=== PATIENT | male | born 1950 | race Caucasian/White ===

== ENCOUNTER → 2024-05-04 | Outpatient (CLI) | payer OTHER, SELFPAY ==
[2024-05-04 08:59] LABS: Basophils # (Auto) 0.1 Thou/mm3 (0.0-0.2); Basophils % (Auto) 1 % (0-2.5); Eosinophils # (Auto) 0.2 Thou/mm3 (0.0-0.5); Eosinophils % (Auto) 2 % (0-10); Hematocrit 46.2 % (41.0-53.0); Hemoglobin 14.6 g/dL (13.5-16.0); Immature Granulocytes % (Auto) 0 % (0-0); Immature Granulocytes Auto 0.03 Thou/mm3 (0.00-0.00); Lymphocytes # (Auto) 2.4 Thou/mm3 (1.0-4.8); Lymphocytes % (Auto) 22 % (10-50); Mean Corpuscular HGB Conc 31.6 g/dl (31.0-37.0); Mean Corpuscular Hemoglobin 25.7 pg (25.0-35.0); Mean Corpuscular Volume 82 fL (80-100); Monocytes # (Auto) 0.3 Thou/mm3 (0.0-0.8); Monocytes % (Auto) 3 % (0-12); Neutrophils # (Auto) 7.8 Thou/mm3 (1.8-7.7); Neutrophils % (Auto) 72 % (37-80); Nucleated Red Blood Cell % 0 /100 WBC (0); Platelet Count 211 Thou/mm3 (140-440); RDW Standard Deviation 49.5 fL (35.1-43.9); Red Blood Count 5.67 Miln/mm3 (4.50-5.90); White Blood Count 10.8 Thou/mm3 (3.8-10.6)
[2024-05-04 09:44] LABS: Alanine Aminotransferase 13 U/L (10-49); Albumin, Serum 4.5 gm/dL (3.4-4.8); Albumin/Globulin Ratio 2.1 (1.2-2.2); Alkaline Phosphatase 82 U/L (46-116); Anion Gap 9 (7-16); Aspartate Amino Transferase 22 U/L (0-34); BUN/Creatinine Ratio 8 Ratio (12-20); Blood Urea Nitrogen 13 mg/dL (9-23); Calcium 9.7 mg/dL (8.3-10.6); Calcium (Corrected) 9.7 mg/dL (8.5-10.1); Carbon Dioxide 26.5 mMol/L (20.0-31.0); Cardiac Risk Estimate 3.7 RATIO (4.0-6.7); Chloride 108 mMol/L (98-107); Cholesterol 133 mg/dL (132-200); Creatinine (Component) 1.6 mg/dL (0.6-1.3); Globulin 2.1 gm/dL (2.3-3.5); Glucose 125 mg/dL (74-106); HDL Cholesterol 36 mg/dL (40-60); LDL Cholesterol,Calculated 68 mg/dL (0-130); Osmolality,Calculated 286 (275-295); Potassium 4.2 mMol/L (3.4-5.1); Sodium 143 mMol/L (136-145); Total Protein 6.6 gm/dL (5.7-8.2); Triglycerides 147 mg/dL (30-150); eGFR 45 See Note
[2024-05-04 09:53] LABS: Collection Type, Urine Clean Catch
[2024-05-04 10:32] LABS: Bacteria,Urine 1+; Bilirubin,Urine Negative (Negative); Blood,Urine 2+ (Negative); Color,Urine Yellow (Lt Yel-Yel); Glucose, Urine Negative (Negative); Hyaline Casts,Urine < 1 /hpf (0-1); Ketones,Urine Negative (Negative); Leukocyte Esterase,Urine Negative (Negative); Nitrite,Urine Negative (Negative); Protein,Urine 1+ (Neg - Trace); RBC,Urine 113 /hpf (0-3); Specific Gravity,Urine 1.024 (1.001-1.035); Squamous Epithelial Cell,Urine 1 /hpf (0-5); Urobilinogen,Urine Negative mg/dL (0.0-1.0); WBC,Urine 9 /hpf (0-5)
[2024-05-04 10:40] LABS: Creatinine MALB Rnd Ur 226 mg/dL (30-125); Microalbumin Creat Ratio 65 mg/gCrea (<30); Microalbumin, Random Urine 147 mg/L (0-300)
[2024-05-04 11:15] LABS: Sperm,Urine Present
[2024-05-04 11:16] LABS: Clarity,Urine Hazy (Clear/Hazy)
== END | disposition home or self-care (01) ==
LOC: COPL 07:49
PROVIDERS: PCP Internal Medicine; Referring Provider Internal Medicine; Visit Provider Internal Medicine
DX: I12.9 Hypertensive chronic kidney disease with stage 1 through stage 4 chronic kidney disease, or unspecified chronic kidney disease (principal); N18.30 Chronic kidney disease, stage 3 unspecified; E78.5 Hyperlipidemia, unspecified
CPT/HCPCS: 36415; 80053; 80061; 81001; 82043; 82570; 85025

== ENCOUNTER → 2024-09-07 | Outpatient (CLI) | payer OTHER, SELFPAY ==
[2024-09-07 09:49] LABS: Basophils # (Auto) 0.1 Thou/mm3 (0.0-0.2); Basophils % (Auto) 1 % (0-2.5); Eosinophils # (Auto) 0.3 Thou/mm3 (0.0-0.5); Eosinophils % (Auto) 3 % (0-10); Hematocrit 43.9 % (41.0-53.0); Hemoglobin 13.3 g/dL (13.5-16.0); Immature Granulocytes % (Auto) 0 % (0-0); Immature Granulocytes Auto 0.02 Thou/mm3 (0.00-0.00); Lymphocytes # (Auto) 2.5 Thou/mm3 (1.0-4.8); Lymphocytes % (Auto) 27 % (10-50); Mean Corpuscular HGB Conc 30.3 g/dl (31.0-37.0); Mean Corpuscular Hemoglobin 23.8 pg (25.0-35.0); Mean Corpuscular Volume 79 fL (80-100); Monocytes # (Auto) 0.3 Thou/mm3 (0.0-0.8); Monocytes % (Auto) 3 % (0-12); Neutrophils # (Auto) 6.1 Thou/mm3 (1.8-7.7); Neutrophils % (Auto) 66 % (37-80); Nucleated Red Blood Cell % 0 /100 WBC (0); Platelet Count 178 Thou/mm3 (140-440); Red Blood Count 5.58 Miln/mm3 (4.50-5.90); White Blood Count 9.4 Thou/mm3 (3.8-10.6)
[2024-09-07 10:17] LABS: Alanine Aminotransferase 13 U/L (10-49); Albumin, Serum 4.2 gm/dL (3.4-4.8); Albumin/Globulin Ratio 2.1 (1.2-2.2); Alkaline Phosphatase 82 U/L (46-116); Anion Gap 10 (7-16); Aspartate Amino Transferase 25 U/L (0-34); BUN/Creatinine Ratio 9 Ratio (12-20); Bilirubin,Total 1.1 mg/dL (0.3-1.2); Blood Urea Nitrogen 13 mg/dL (9-23); Calcium 9.2 mg/dL (8.3-10.6); Calcium (Corrected) 9.2 mg/dL (8.5-10.1); Carbon Dioxide 26.5 mMol/L (20.0-31.0); Cardiac Risk Estimate 2.5 RATIO (4.0-6.7); Chloride 110 mMol/L (98-107); Cholesterol 112 mg/dL (132-200); Creatinine (Component) 1.5 mg/dL (0.6-1.3); Glucose 104 mg/dL (74-106); HDL Cholesterol 44 mg/dL (40-60); LDL Cholesterol,Calculated 53 mg/dL (0-130); Osmolality,Calculated 290 (275-295); Sodium 146 mMol/L (136-145); Total Protein 6.2 gm/dL (5.7-8.2); Triglycerides 77 mg/dL (30-150); eGFR 49 See Note
[2024-09-07 11:18] LABS: Collection Type, Urine Clean Catch; Squamous Epithelial Cell,Urine 0 /hpf (0-5)
[2024-09-07 11:41] LABS: Bilirubin,Urine Negative (Negative); Blood,Urine 3+ (Negative); Clarity,Urine Turbid (Clear/Hazy); Color,Urine Drk-Yellow (Lt Yel-Yel); Glucose, Urine Negative (Negative); Ketones,Urine Negative (Negative); Leukocyte Esterase,Urine Positive (Negative); Nitrite,Urine Negative (Negative); PH,Urine 6.5 (5.0-7.0); Protein,Urine 2+ (Neg - Trace); RBC,Urine 2283 /hpf (0-3); Renal Epithelial Cells,Urine 1 /hpf (0-5); WBC,Urine 50 /hpf (0-5)
[2024-09-07 12:00] LABS: Creatinine MALB Rnd Ur 307 mg/dL (30-125); Microalbumin Creat Ratio 120 mg/gCrea (<30); Microalbumin, Random Urine 368 mg/L (0-300)
== END | disposition home or self-care (01) ==
LOC: COPL 09:00
PROVIDERS: PCP Internal Medicine; Referring Provider Internal Medicine; Visit Provider Internal Medicine
DX: I12.9 Hypertensive chronic kidney disease with stage 1 through stage 4 chronic kidney disease, or unspecified chronic kidney disease (principal); N18.30 Chronic kidney disease, stage 3 unspecified; E78.5 Hyperlipidemia, unspecified
CPT/HCPCS: 36415; 80053; 80061; 81001; 82043; 82570; 85025

== ENCOUNTER 2024-11-01 15:15 | Inpatient (IN) | payer OTHER, MEDICARE, SELFPAY ==
[2024-11-01] VITALS (31 sets, daily range): BP systolic 94–153; BP diastolic 63–92; PULSE 102–144; RESP 15–35; TEMP 36.7–37; O2SAT 70–100; BMI 28.5
--- NOTE | 2024-11-01 15:53 | PD.EDSOB ---
ED SOB =RME/HPI General Chief Complaint: Shortness of Breath/Dyspnea Stated Complaint: SOB Time Seen by Provider: 11/01/24 15:35 Arrival date/time: 11/01/24 15:15 RME / HPI RME / HPI Narrative: 74 year old male with history of CVA, COPD on 3L home oxygen, hypertension, hyperlipidemia, CKD, BPH, TURP presents to the ED BIBA from home for evaluation of shortness of breath beginning 3 days ago and progressively worsening. Accompanied by a cough he says is worse than his baseline. States he attempted administering a nebulizer treatment at home. However, during treatment began coughing and unable to tolerate. States it took me all day to nebulize one treatment. Denies fevers, chills, chest pain. Denies current use of antibiotics, previous intubation, or admissions to ICU secondary to shortness of breath. Patient additionally complains of dysuria beginning several days ago with dribbling urine. Per medics report, patient was found saturating 65% on room and given an Albuterol breathing treatment en route. Related Data Home Medications ?Medication ?Instructions ?Recorded ?Confirmed amlodipine 10 mg tablet 10 mg PO QDAY 09/27/17 09/10/23 cholecalciferol (vitamin D3) 25 1,000 unit PO DAILY 09/27/17 09/10/23 mcg (1,000 unit) tablet (Vitamin D3) cyanocobalamin (vitamin B-12) 1,000 mcg PO QDAY 09/27/17 09/10/23 1,000 mcg tablet (Vitamin B-12) simvastatin 20 mg tablet 20 mg PO QPM 09/27/17 09/10/23 tamsulosin 0.4 mg capsule 0.4 mg PO HS 07/05/19 09/10/23 budesonide 160 mcg-glycopyr 9 1 puff inhalation DAILY 02/23/21 09/10/23 mcg-formot 4.8 mcg/actuation HFA inhaler (Breztri Aerosphere) calcium ER 600 mg (as carb,cit)-D3 1 tab PO DAILY 02/23/21 09/10/23 12.5 mcg (500 unit) tablet, ext.rel (Citracal-D3 Slow Release) multivit with minerals-folic 1 tab PO DAILY 02/23/21 09/10/23 acid-lycopene 0.4 mg-600 mcg tablet (One Daily For Men) furosemide 20 mg tablet 20 mg PO QDAY 09/10/23 09/10/23 Previous Rx's ?Medication ?Instructions ?Recorded levetiracetam 500 mg tablet 500 mg PO BID 30 days #60 tabs 09/13/23 (Keppra) Allergies Allergy/AdvReac Type Severity Reaction Status Date / Time No Known Allergies Allergy Verified 12/07/21 13:18 Review of Systems Review of Systems Systems Reviewed: All systems reviewed, normal except as documented Past Medical History Past Medical History NEUROLOGIC: Positive Neurological Disorders and Cerebrovascular Accident CARDIAC: Positive Cardiac Disorders, Hypercholesterolemia and Hypertension RESPIRATORY: Positive Chronic Obstructive Pulmonary Disease (COPD) and Pneumonia GENITOURINARY: Positive Genitourinary Disorders and Benign Prostatic Hyperplasia MUSCULOSKELETAL: Positive Musculoskeletal Disorders and Arthritis ENT: Positive Cataracts and Glaucoma HEMATOLOGIC: Positive Anemia OTHER HISTORY: Positive Hospitalization, Falls, Blood Transfusions, Chicken Pox, Measles, Mumps and Rubella ([place] Measles) Family History FAMILY HISTORY: Positive Family Cardiac Disorders, Family Cancer and Family Surgery Surgical History SURGICAL: Positive Transurethral Resection Social History SMOKING STATUS: Former smoker SECOND HAND EXPOSURE: Yes SUBSTANCE USE: does not use ED Exam Narrative Physical exam: GENERAL APPEARANCE: AxOx4, nontoxic appearing, mild respiratory distress speaking 2-3 word sentences HEENT: NC, AT. MMM. EOMI, clear conjunctiva, oropharynx clear. NECK: Supple without lymphadenopathy. No stiffness or restricted ROM. HEART: Normal rate and regular rhythm, normal S1/S1, no m/r/g LUNGS: Rales and coarse rhonchi right lower lobe. ABDOMEN: Soft, nontender, nondistended with good bowel sounds heard. BACK: No midline C/T/L spine pain or deformity, No CVAT, no obvious deformity. EXTREMITIES: Without cyanosis, clubbing or edema. MUSCULOSKELETAL: FROM of all major joints, no chest tenderness NEUROLOGICAL: Grossly nonfocal. Alert and oriented, moving all 4 extremities. CN not formally tested but appear grossly intact. Skin: Warm and dry without any rash. Course Quality Measures none Orders Category Date Time Status Bedside COVID-19 Antigen Test NOW Care 11/01/24 15:55 Active Bedside Influenza A&B Antigen Test NOW Care 11/01/24 15:55 Active Insert IV NOW Care 11/01/24 15:49 Active XR chest 1V portable Stat Exams 11/01/24 15:56 Completed Blood Culture (Lab) Stat Lab 11/01/24 16:20 Received CBC Stat Lab 11/01/24 16:24 Completed CMP [Comprehensive Metabolic Panel] Stat Lab 11/01/24 16:24 Completed Lactate (Lactic Acid) Stat Lab 11/01/24 16:24 Results Procalcitonin Stat Lab 11/01/24 16:24 Completed Troponin I Stat Lab 11/01/24 16:24 Completed ALBUTEROL RT 0.5ml [Proventil Rt 0.5ml] Med 11/01/24 15:56 Discontinued 10 mg INH X1 ONE Doxycycline [Vibramycin] Med 11/01/24 16:39 Discontinued 100 mg PO X1 ONE Ipratropium [place] Rt Lindy [Atrovent Rt Lindy] Med 11/01/24 15:56 Discontinued 1 mg INH X1 ONE Sodium Chloride 0.9% 1000 ml [Ns] 1,000 ml Med 11/01/24 16:39 Discontinued IV 999 mls/hr Sodium Chloride 0.9% 1000 ml [Ns] 1,000 ml Med 11/01/24 16:39 Discontinued IV 999 mls/hr Sodium Chloride Rt Lindy 0.9% [NS Rt Lindy 0.9%] Med 11/01/24 15:56 Active 3 ml INH PRN PRN cefTRIAXone/D5w 1gm IV premix [Rocephin/D5w 1gm IV Med 11/01/24 16:39 Discontinued premix] 1 gm in 50 ml IV X1 predniSONE Med 11/01/24 15:56 Discontinued 60 mg PO X1 ONE BiPAP / CPAP NOW RT 11/01/24 15:47 Active Vital Signs Vital signs: Vital Signs Temperature 98.0 F 11/01/24 15:37 Pulse Rate 144 H 11/01/24 15:37 Respiratory Rate 28 H 11/01/24 15:37 Blood Pressure 152/73 H 11/01/24 15:37 Pulse Oximetry (%) 70 L 11/01/24 15:37 Oxygen Delivery Method Nasal Cannula 11/01/24 15:37 Oxygen Flow Rate 6 11/01/24 15:37 Shortness of Breath / Dyspnea MDM Narrative MDM Narrative:: Krissy Johnston am scribing for and in the presence of Dr. Diaz. Patient data External records reviewed:: [facility] previous records (I reviewed admission from 09/09/2024 through 09/12/2024 ) and EMS form Clinical information provided by:: patient and EMS Social determinants that could affect healthcare access:: none Patient has the following chronic illnesses:: CVA, COPD on 3L home oxygen, hypertension, hyperlipidemia, CKD, BPH, TURP How is presenting disease/condition affected by chronic disease/condition?: exacerbated by Evaluation data The following diagnostics were reviewed and interpreted by me:: lab results and radiology exam(s) Lab and/or radiology exams considered but not ordered:: None Interpretation Summary: Ordering Physician: Sage Diaz MD Date of Service: 11/01/24 Procedure(s): XR chest 1V portable Accession Number(s): [id number] cc: Sage Diaz MD; Shahzad Rios MD; Jamaal Bautista MD~ Examination: AP chest single view Technique one AP portable semiupright chest single view Date and time: November 01, 2024 1604 hours Comparison September 10, 2023 INDICATIONS: Respiratory distress today FINDINGS: Bilateral pulmonary fibrosis Persistent superimposed pneumonia at the lung bases Mild enlargement cardiac contour Central pulmonary arteries are prominent Mild vascular congestion IMPRESSION: Pulmonary fibrosis Superimposed pneumonia at the lung bases Pulmonary artery hypertension Dictated By:Shahzad Rios MD Signed By:<Electronically signed by Shahzad Rios MD in [place]>11/01/24 1726 Medications / Prescriptions Medications or Prescriptions considered but not ordered:: None Medication administrations:: Medication Administration History Sodium Chloride (Sodium Chloride Rt Lindy 0.9% 3 Ml Nebu) 3 ml INH PRN PRN PRN Reason: SOLN Stop: 12/01/24 15:55 Last Admin: 11/01/24 16:04 Dose: 3 ml Documented By: YVROSE Discontinued Medications Albuterol (Albuterol Rt 2.5 Mg/0.5 Ml Nebu) 10 mg INH X1 ONE Stop: 11/01/24 15:57 Last Admin: 11/01/24 16:03 Dose: 10 mg Documented By: YVROSE Doxycycline Hyclate (Doxycycline 100 Mg Tablet) 100 mg PO X1 ONE Stop: 11/01/24 16:40 Sodium Chloride (Ns) 1,000 mls @ 999 mls/hr IV .Q1H1M ONE Stop: 11/01/24 17:39 Ceftriaxone Sodium/Dextrose (Rocephin/D5w 1gm Iv Premix) 1 gm in 50 mls @ 100 mls/hr IV X1 ONE Stop: 11/01/24 17:08 Sodium Chloride (Ns) 1,000 mls @ 999 mls/hr IV .Q1H1M ONE Stop: 11/01/24 17:39 Ipratropium [place] (Ipratropium Rt 0.5 Mg/ 2.5 Ml Nebu) 1 mg INH X1 ONE Stop: 11/01/24 15:57 Last Admin: 11/01/24 16:03 Dose: 1 mg Documented By: YVROSE Prednisone (Prednisone 20 Mg Tablet) 60 mg PO X1 ONE Stop: 11/01/24 15:57 Last Admin: 11/01/24 16:15 Dose: 60 mg Documented By: DB See above Consultations Consultation(s) initiated? (list below): Yes Consultation #1 (Physician, Specialty, Details): I spoke with patients PCP Dr. Bautista. Discussed patients PMHx, HPI, ED course, exam findings, labs, and radiology results. She accepts the patient for admission. Time: 17:16 Diagnosis Shortness of Breath Differential Diagnosis: acute exacerbation of chronic obstructive airways disease, congestive heart failure, community acquired pneumonia and asthma with exacerbation Most likely diagnosis given after review of the tests above:: Pneumonia Respiratory failure COPD Admission Indicated Admission indicated?: indicated Admission Request Was there a request for admission?: Yes Admission Attestation Admission request attestation: Discussed case with [] from Hospitalist service regarding admission. Discussed patients ED course, exam findings, labs, and radiology results. The Hospitalist [agrees,declines] to accept the patient for admission. Disposition Plan Disposition Plan: Admit Critical Care Time Critical Care Time Critical Care Time: Yes Total Critical Care Time (min.): 35 Attestation: The high probability of sudden, clinically significant deterioration in the patient's condition required the highest level of my preparedness to intervene urgently. The services I provided to this patient were to treat and/or prevent clinically significant deterioration. Services included the following: chart data review, reviewing nursing notes and/or old charts, documentation time, marine consultant collaboration regarding findings and treatment options, medication orders and management, direct patient care, vital sign assessments and ordering, interpreting and reviewing diagnostic studies and lab tests. Aggregate critical care time includes only time during which I was engaged in work directly related to the patient's care, as described above, whether at bedside or elsewhere in the Emergency Department. It did not include time spent performing other reported procedures or the services of residents, students, nurses or physician assistants. Discharge Plan Plan Patient Disposition: Admit Acute Care w/in Hospital Problem List Clinical Impression: Pneumonia, Respiratory failure, COPD (chronic obstructive pulmonary disease)
--- NOTE | 2024-11-01 15:56 | XR_ITS ---
Examination: AP chest single view Technique one AP portable semiupright chest single view Date and time: November 01, 2024 1604 hours Comparison September 10, 2023 INDICATIONS: Respiratory distress today FINDINGS: Bilateral pulmonary fibrosis Persistent superimposed pneumonia at the lung bases Mild enlargement cardiac contour Central pulmonary arteries are prominent Mild vascular congestion IMPRESSION: Pulmonary fibrosis Superimposed pneumonia at the lung bases Pulmonary artery hypertension
[2024-11-01] MEDS: IPRATROPIUM RT 0.5 MG/ 2.5 ML NEBU 1 MG INH (16:03)
[2024-11-01] MEDS: ALBUTEROL RT 2.5 MG/0.5 ML NEBU 10 MG INH (16:03)
[2024-11-01] MEDS: SODIUM CHLORIDE RT SOL 0.9% 3 ML NEBU INH (16:04)
[2024-11-01] MEDS: predniSONE 20 MG TABLET 60 MG PO (16:15)
[2024-11-01 16:43] LABS: Basophils # (Auto) 0.1 Thou/mm3 (0.0-0.2); Basophils % (Auto) 0 % (0-2.5); Eosinophils % (Auto) 0 % (0-10); Hematocrit 40.8 % (41.0-53.0); Hemoglobin 12.8 g/dL (13.5-16.0); Immature Granulocytes % (Auto) 0 % (0-0); Immature Granulocytes Auto 0.04 Thou/mm3 (0.00-0.00); Lymphocytes # (Auto) 1.8 Thou/mm3 (1.0-4.8); Lymphocytes % (Auto) 15 % (10-50); Mean Corpuscular HGB Conc 31.4 g/dl (31.0-37.0); Mean Corpuscular Hemoglobin 23.5 pg (25.0-35.0); Mean Corpuscular Volume 75 fL (80-100); Monocytes # (Auto) 0.4 Thou/mm3 (0.0-0.8); Monocytes % (Auto) 3 % (0-12); Neutrophils # (Auto) 9.6 Thou/mm3 (1.8-7.7); Neutrophils % (Auto) 81 % (37-80); Nucleated Red Blood Cell % 0 /100 WBC (0); Platelet Count 181 Thou/mm3 (140-440); RDW Standard Deviation 51.8 fL (35.1-43.9); Red Blood Count 5.45 Miln/mm3 (4.50-5.90); White Blood Count 11.9 Thou/mm3 (3.8-10.6)
[2024-11-01 17:00] LABS: Alanine Aminotransferase 15 U/L (10-49); Albumin, Serum 4.2 gm/dL (3.4-4.8); Albumin/Globulin Ratio 1.8 (1.2-2.2); Alkaline Phosphatase 119 U/L (46-116); Anion Gap 11 (7-16); Aspartate Amino Transferase 21 U/L (0-34); BUN/Creatinine Ratio 17 Ratio (12-20); Bilirubin,Total 1.1 mg/dL (0.3-1.2); Blood Urea Nitrogen 25 mg/dL (9-23); Calcium 8.6 mg/dL (8.3-10.6); Calcium (Corrected) 8.6 mg/dL (8.5-10.1); Carbon Dioxide 26.7 mMol/L (20.0-31.0); Chloride 108 mMol/L (98-107); Creatinine (Component) 1.5 mg/dL (0.6-1.3); Estimated Creatinine Clearance 53.3 mL/min (>60); Globulin 2.4 gm/dL (2.3-3.5); Glucose 127 mg/dL (74-106); Osmolality,Calculated 296 (275-295); Procalcitonin 0.36 ng/ml (0.0-0.49); Sodium 146 mMol/L (136-145); Total Protein 6.6 gm/dL (5.7-8.2); Troponin I < 0.020 ng/mL (0.0-0.045); eGFR 49 See Note
--- NOTE | 2024-11-01 17:42 | PD.NEPHHP ---
Documentation for date of: 11/01/24 History of Present Illness History of Present Illness Chief complaint: SOB History of present illness: Mr. 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 is the informant as patient currently is on BiPAP and unable to give me too much information. He denies any fever or chills although complaining of significant weakness. In the emergency department patient was noted to be hypoxic and was placed on BiPAP.WBC 11.9, hemoglobin 12.8, platelets 181. ABG was not done. Sodium 146, potassium 4, BUN 25, creatinine 1.5, GFR 49, lactic acid 3.9, calcium 8.6, LFTs normal, troponin less than 0.02, albumin 4.2, Pro-Mikal 0.36. So far RSV, influenza, bedside COVID are negative. Chest x-ray showed bilateral pneumonia at the lung bases and pulmonary artery hypertension. Patient was diagnosed with COPD exacerbation, pneumonia and was started on Solu-Medrol, IV antibiotics and admitted to telemetry. Home medications: Amlodipine 10 Mg daily, bpbbccvzbv-sexwujyojjchqw-kjrilydewt 1 puff inhalation daily, vitamin D3 tab daily, vitamin B 12 1000 mcg daily, furosemide 20 Mg daily, Keppra, tamsulosin 0.4 Mg daily at night, simvastatin 20 Mg daily at night Review of Systems Review of Systems Narrative Review of Systems: Limited due to his BiPAP. Denies any chest pain. Does have shortness of breath. Denies any nausea, vomiting. Complaining of productive sputum Past Medical History Past Medical History NEUROLOGIC: Positive Neurological Disorders and Cerebrovascular Accident; Negative Seizures CARDIAC: Positive Cardiac Disorders, Hypercholesterolemia and Hypertension; Negative Congestive Heart Failure, Edema or Cellulitis RESPIRATORY: Positive Chronic Obstructive Pulmonary Disease (COPD) and Pneumonia; Negative Asthma, Tuberculosis, Pulmonary Embolism or Sleep Apnea GASTROINTESTINAL: Negative Gastrointestinal Disorders or Hepatitis GENITOURINARY: Positive Genitourinary Disorders and Benign Prostatic Hyperplasia; Negative Renal Disease MUSCULOSKELETAL: Positive Musculoskeletal Disorders and Arthritis ENT: Positive Cataracts and Glaucoma ENDOCRINE: Negative Endocrine Disorders, Diabetes Mellitus Type 1 or Diabetes Mellitus Type 2 HEMATOLOGIC: Positive Blood Disorders and Anemia; Negative Sickle Cell Disease OTHER HISTORY: Positive Hospitalization, Falls, Blood Transfusions, Chicken Pox, Measles, Mumps and Rubella ([place] Measles); Negative Autoimmune Disease, Down Syndrome, Developmental Delay, Shingles, Blood Transfusion Reaction, Anesthesia Reactions, Chemotherapy, Radiation Therapy, MRSA or Cancer Family History FAMILY HISTORY: Positive Family Cardiac Disorders, Family Cancer and Family Surgery; Negative Family Psychiatric Problems, Family Respiratory Disorders, Family Gastrointestinal Problems or Family Anesthesia Reaction Surgical History SURGICAL: Positive Transurethral Resection; Negative Cardiac Surgery, Pacemaker, Endocrine Surgery, Ear Surgery, Eye Surgery, Nose Surgery, Abdominal Surgery or Joint Replacement Social History SMOKING STATUS: Former smoker SECOND HAND EXPOSURE: Yes SUBSTANCE USE: does not use Meds Home Medications and Allergies Home Medications ?Medication ?Instructions ?Recorded ?Confirmed ?Type amlodipine 10 mg tablet 10 mg PO QDAY 09/27/17 09/10/23 History cholecalciferol (vitamin D3) 25 1,000 unit PO DAILY 09/27/17 09/10/23 History mcg (1,000 unit) tablet (Vitamin D3) cyanocobalamin (vitamin B-12) 1,000 mcg PO QDAY 09/27/17 09/10/23 History 1,000 mcg tablet (Vitamin B-12) simvastatin 20 mg tablet 20 mg PO QPM 09/27/17 09/10/23 History tamsulosin 0.4 mg capsule 0.4 mg PO HS 07/05/19 09/10/23 History budesonide 160 mcg-glycopyr 9 1 puff inhalation DAILY 02/23/21 09/10/23 History mcg-formot 4.8 mcg/actuation HFA inhaler (Breztri Aerosphere) calcium ER 600 mg (as carb,cit)-D3 1 tab PO DAILY 02/23/21 09/10/23 History 12.5 mcg (500 unit) tablet, ext.rel (Citracal-D3 Slow Release) multivit with minerals-folic 1 tab PO DAILY 02/23/21 09/10/23 History acid-lycopene 0.4 mg-600 mcg tablet (One Daily For Men) furosemide 20 mg tablet 20 mg PO QDAY 09/10/23 09/10/23 History Allergies Allergy/AdvReac Type Severity Reaction Status Date / Time No Known Allergies Allergy Verified 12/07/21 13:18 Exam Vital Signs Temp Pulse Resp BP Pulse Ox O2 Del Method O2 Flow Rate 36.7 C 126 H 20 123/84 94 L BiPAP 6 11/01/24 16:18 11/01/24 20:30 11/01/24 20:30 11/01/24 20:00 11/01/24 20:30 11/01/24 20:00 11/01/24 15:37 FiO2 100 11/01/24 20:00 Narrative Exam GENERAL APPEARANCE: Patient very short of breath. Sitting at the edge of the bed in the emergency department. On BiPAP. at bedside. NECK: Neck supple, no JVD or bruit CARDIOVASCULAR: Heart regular, no murmurs, tachycardia LUNGS/CHEST: Bilateral rhonchi and wheezing noted ABDOMEN: Soft, nontender, nondistended. No masses. Normal bowel sounds. EXTREMITIES: No edema, clubbing or cyanosis. SKIN: Skin exam normal without any rashes MUSCULOSKELETAL: Musculoskeletal exam normal PSYCHIATRIC: Normal mood, affect LYMPHATICS: No lymphadenopathy noted NEUROLOGICAL : No neurological deficits Results: Labs 11/01/24 16:24 11/01/24 16:24 Labs: Short CBC 11/01/24 Range/Units 16:24 WBC 11.9 H (3.8-10.6) Thou/mm3 Hgb 12.8 L (13.5-16.0) g/dL Hct 40.8 L (41.0-53.0) % Plt Count 181 (140-440) Thou/mm3 BMP 11/01/24 16:24 Sodium 146 H Potassium 4.0 Chloride 108 H Carbon Dioxide 26.7 BUN 25 H Creatinine 1.5 H Glucose 127 H Calcium 8.6 Cardiac Enzymes 11/01/24 Range/Units 16:24 Troponin I < 0.020 (0.0-0.045) ng/mL Liver Function 11/01/24 Range/Units 16:24 Total Bilirubin 1.1 (0.3-1.2) mg/dL AST 21 (0-34) U/L ALT 15 (10-49) U/L Alkaline Phosphatase 119 H (46-116) U/L Albumin 4.2 (3.4-4.8) gm/dL Assessment & Plan Assessment and plan (1) Acute hypoxic respiratory failure: Status: Acute Assessment and plan: Acute hypoxic respiratory failure secondary to COPD exacerbation/pneumonia. Continue with BiPAP overnight. Will monitor his O2 sat closely. Will be admitted to telemetry. (2) Pneumonia: Status: Acute Assessment and plan: Add antibiotics (3) BPH (benign prostatic hyperplasia): Status: Acute Assessment and plan: Continue with home tamsulosin (4) Hypertension: Status: Acute Assessment and plan: Blood pressure stable. Resume amlodipine (5) Hyperlipidemia: Status: Acute Assessment and plan: On simvastatin (6) Chronic kidney disease, stage III (moderate): Status: Acute Assessment and plan: Creatinine stable at 1.5 (7) COPD exacerbation: Status: Acute Assessment and plan: COPD exacerbation. Influenza, RSV, COVID-negative. Give oxygen/BiPAP, IV Solu-Medrol and antibiotics. Breathing treatments ordered. Estimated length of stay 2 to 3 days CODE STATUS full code DVT prophylaxis heparin GI prophylaxis Protonix Discharge disposition Home with home health Quality Measures Quality Measures none Advance care planning discussed with:: patient
[2024-11-01] MEDS: SODIUM CHLORIDE 0.9% 1000 ML 1,000 ML 999 ML IV ×2 (17:48→17:49)
[2024-11-01] MEDS: DOXYCYCLINE 100 MG TABLET PO (17:49)
[2024-11-01] MEDS: cefTRIAXone/D5w 1gm IV premix 1 GM/50 ML BAG IV (17:49)
[2024-11-01 18:49] LABS: Respiratory Syncytial Virus Ag Negative (Negative)
[2024-11-01 19:28] LABS: Reflex Lactate? Y
[2024-11-01 20:08] LABS: Lactic Acid, 3 HR 3.9 mMol/L (0.4-2.0)
--- NOTE | 2024-11-01 20:40 | PC.NURSE ---
Pt given pillow for comfort.
[2024-11-01] MEDS: levETIRAcetam 250 MG TABLET 500 MG PO (22:22)
[2024-11-01] MEDS: ATORVASTATIN CALCIUM 10 MG TABLET PO (22:22)
[2024-11-02] VITALS (19 sets, daily range): BP systolic 140–168; BP diastolic 78–105; PULSE 78–113; RESP 15–32; TEMP 36.1–36.5; O2SAT 87–100; BMI 32.0
--- NOTE | 2024-11-02 06:20 | PC.NURSE ---
0510 Pt removed all leads and pulse ox. [employer] checks on pt, pt is on bipap and demanding water. [employer] tries to reattach monitoring equipment, pt refuses demanding water. [employer] tells pt she will check with the RN. RN went to talk to pt and educated him about the risks of water with the bipap. RN asks pt if she can reattach the monitoring equipment, at which time the pt punched the mattress at the head of the bed stating Your treating me like a DOG . RN asked the pt if he could be calm. pt responded with No I'm going to punch some other things. at which time the RN excused herself and stepped outside the room with the [employer], in order to assess the pt from a safe distance and give him space to calm down.
[2024-11-02] MEDS: ALBUTEROL/IPRATROPIUM (Duoneb) RT SOL 3 ML NEBU INH ×5 (06:59→22:20)
[2024-11-02 08:49] LABS: Lactate (Lactic Acid) 1.5 mMol/L (0.4-2.0)
[2024-11-02 08:54] LABS: Basophils % (Auto) 0 % (0-2.5); Eosinophils % (Auto) 0 % (0-10); Hematocrit 37.7 % (41.0-53.0); Immature Granulocytes % (Auto) 0 % (0-0); Immature Granulocytes Auto 0.04 Thou/mm3 (0.00-0.00); Lymphocytes # (Auto) 1.5 Thou/mm3 (1.0-4.8); Lymphocytes % (Auto) 15 % (10-50); Mean Corpuscular HGB Conc 31.8 g/dl (31.0-37.0); Mean Corpuscular Hemoglobin 23.6 pg (25.0-35.0); Mean Corpuscular Volume 74 fL (80-100); Monocytes # (Auto) 0.2 Thou/mm3 (0.0-0.8); Monocytes % (Auto) 2 % (0-12); Neutrophils # (Auto) 8.3 Thou/mm3 (1.8-7.7); Neutrophils % (Auto) 83 % (37-80); Nucleated Red Blood Cell % 0 /100 WBC (0); Platelet Count 231 Thou/mm3 (140-440); RDW Standard Deviation 50.7 fL (35.1-43.9); Red Blood Count 5.08 Miln/mm3 (4.50-5.90)
[2024-11-02] MEDS: cefTRIAXone/D5w 1gm IV premix 1 GM/50 ML BAG IV (09:07)
--- NOTE | 2024-11-02 09:35 | PD.RESPRO ---
Documentation for date of: 11/02/24 Subjective Subjective Interval history: Mr. 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 is the informant as patient currently is on BiPAP and unable to give me too much information. He denies any fever or chills although complaining of significant weakness. In the emergency department patient was noted to be hypoxic and was placed on BiPAP.WBC 11.9, hemoglobin 12.8, platelets 181. ABG was not done. Sodium 146, potassium 4, BUN 25, creatinine 1.5, GFR 49, lactic acid 3.9, calcium 8.6, LFTs normal, troponin less than 0.02, albumin 4.2, Pro-Mikal 0.36. So far RSV, influenza, bedside COVID are negative. Chest x-ray showed bilateral pneumonia at the lung bases and pulmonary artery hypertension. Patient was diagnosed with COPD exacerbation, pneumonia and was started on Solu-Medrol, IV antibiotics and admitted to telemetry. Home medications: Amlodipine 10 Mg daily, pokvtolvdp-vypilopsraefgr-ornainnhzh 1 puff inhalation daily, vitamin D3 tab daily, vitamin B 12 1000 mcg daily, furosemide 20 Mg daily, Keppra, tamsulosin 0.4 Mg daily at night, simvastatin 20 Mg daily at night 11/29/2024: Patient seen and examined at bedside this morning. No acute overnight events. Patient sleeping but easily arousable. He complains of cough/sore throat and asking for cough syrup. He is also requesting for BiPAP to be taken off; will attempt to transition to HFNC if patient tolerates. Vitals, labs reviewed. Mildly tachycardic and tachypneic. Sats in high 90s, will set goal for 88 to 92%. WBC improved, hemoglobin stable with microcytic anemia noted. CHEM panel pending. Lactic acidosis resolved. Blood cultures pending at this time. Continue breathing treatments, oxygen, steroids for hypoxic respiratory failure; antibiotics for superimposed pneumonia. Exam Vital Signs Temp Pulse Resp BP Pulse Ox O2 Del Method O2 Flow Rate 97.3 F 97 28 H 143/86 H 98 BiPAP 6 11/02/24 08:00 11/02/24 08:00 11/02/24 08:00 11/02/24 08:00 11/02/24 08:00 11/02/24 08:00 11/01/24 15:37 FiO2 40 11/02/24 06:59 Narrative Exam Gen: AAOx3, elderly male, pleasant to speak with, on BiPAP HEENT: NCAT, PERRLA, EOMI, MMM, no LAD CVS: normal S1, S2. RRR. No MRG Resp: significantly diminished in uppe/middle lobes, bibasilar rhonchi appreciated Abd: soft, non-tender, non-distended. BS+ in all 4 quadrants MSK: Good ROM in BUE & BLE. No edema or rash. Neuro: CN II-XII grossly intact. Strength 5/5 in BUE & BLE. Objective Labs 11/02/24 08:33 11/02/24 08:33 Labs: Laboratory Results - last 24 hr 11/01/24 11/01/24 11/01/24 15:39 16:24 19:49 WBC 11.9 H RBC 5.45 Hgb 12.8 L Hct 40.8 L MCV 75 L MCH 23.5 L MCHC 31.4 RDW Std Deviation 51.8 H Plt Count 181 Neut % (Auto) 81 H Lymph % (Auto) 15 [place] % (Auto) 3 Eos % (Auto) 0 Baso % (Auto) 0 Neut # (Auto) 9.6 H Lymph # (Auto) 1.8 [place] # (Auto) 0.4 Eos # (Auto) 0.0 Baso # (Auto) 0.1 Immature Gran # (Auto) 0.04 H Absolute Nucleated RBC 0.00 Immature Gran % 0 Nucleated RBC % 0 Sodium 146 H Potassium 4.0 Chloride 108 H Carbon Dioxide 26.7 Anion Gap 11 BUN 25 H Creatinine 1.5 H Estim Creat Clear Calc 53.3 L eGFR 49 L BUN/Creatinine Ratio 17 Glucose 127 H Calculated Osmolality 296 H Lactic Acid 3.0 H 3.9 H Calcium 8.6 Corrected Calcium 8.6 Total Bilirubin 1.1 AST 21 ALT 15 Alkaline Phosphatase 119 H Troponin I < 0.020 Total Protein 6.6 Albumin 4.2 Globulin 2.4 Albumin/Globulin Ratio 1.8 Procalcitonin 0.36 RSV Rapid Negative 11/02/24 08:33 WBC 10.0 RBC 5.08 Hgb 12.0 L Hct 37.7 L MCV 74 L MCH 23.6 L MCHC 31.8 RDW Std Deviation 50.7 H Plt Count 231 D Neut % (Auto) 83 H Lymph % (Auto) 15 [place] % (Auto) 2 Eos % (Auto) 0 Baso % (Auto) 0 Neut # (Auto) 8.3 H Lymph # (Auto) 1.5 [place] # (Auto) 0.2 Eos # (Auto) 0.0 Baso # (Auto) 0.0 Immature Gran # (Auto) 0.04 H Absolute Nucleated RBC 0.00 Immature Gran % 0 Nucleated RBC % 0 Sodium Potassium Chloride Carbon Dioxide Anion Gap BUN Creatinine Estim Creat Clear Calc eGFR BUN/Creatinine Ratio Glucose Calculated Osmolality Lactic Acid 1.5 Calcium Corrected Calcium Total Bilirubin AST ALT Alkaline Phosphatase Troponin I Total Protein Albumin Globulin Albumin/Globulin Ratio Procalcitonin RSV Rapid Quality Measures Quality Measures VTE prophylaxis Advance care planning discussed with:: patient Assessment & Plan Assessment Current Active Medications: Generic Name Dose Route Start Last Admin Trade Name Freq PRN Reason Stop Dose Admin Albuterol/Ipratropium 3 ml 11/02/24 07:00 11/02/24 06:59 Albuterol/Ipratropium (Duoneb) Rt Lindy 3 Ml Nebu INH 12/02/24 06:59 3 ml Q4HRRT AMILCAR Administration Amlodipine Besylate 10 mg 11/02/24 09:00 Amlodipine Besylate 5 Mg Tablet PO 12/02/24 08:59 QDAY AMILCAR Atorvastatin Calcium 10 mg 11/01/24 22:15 11/01/24 22:22 Atorvastatin Calcium 10 Mg Tablet PO 12/01/24 22:14 10 mg QPM AMILCAR Administration Protocol Cyanocobalamin 1,000 mcg 11/02/24 09:00 Cyanocobalamin 500 Mcg Tablet PO 12/02/24 08:59 QDAY [facility] Furosemide 20 mg 11/02/24 09:45 Furosemide Inj 10 Mg/Ml Vial 2 Ml IVP 12/02/24 09:44 QDAY [facility] Heparin Sodium (Porcine) 5,000 unit 11/02/24 06:30 Heparin Sod Inj 5000 Unit/Ml Vial SC 11/16/24 06:29 Q8HR [facility] Ceftriaxone Sodium/Dextrose 1 gm in 50 mls @ 100 mls/hr 11/02/24 09:00 11/02/24 09:07 Rocephin/D5w 1gm Iv Premix IV 11/09/24 08:59 100 mls/hr DAILY AMIL[facility] Administration Doxycycline Hyclate 100 mg/ 100 mls @ 100 mls/hr 11/02/24 09:45 Sodium Chloride IV 11/09/24 09:44 BID AMILCAR Levetiracetam 500 mg 11/02/24 09:35 Levetiracetam Inj 100 Mg/Ml Vial 5ml IVP 12/02/24 09:34 Q12HR AMILCAR Methylprednisolone Sodium Succinate 40 mg 11/02/24 09:00 11/02/24 09:06 Methylprednisolone Sod Succ 40 Mg Vial IVP 11/09/24 08:59 40 mg Q12HR AMILCAR Administration Pantoprazole Sodium 40 mg 11/02/24 09:45 Pantoprazole Inj 40 Mg Vial IVP 12/02/24 09:44 QDAY AMILCAR (Budesonide-Glycopyr 1 ea 11/02/24 09:00 -Formoterol [Breztri INH 12/02/24 08:59 Aerosphere] DAILY AMIL[facility] Multivit With Min-Fa 1 ea 11/02/24 09:00 -Lycopene [One Daily PO 12/02/24 08:59 For Men] 0. DAILY AMILCAR Sodium Chloride 3 ml 11/01/24 15:56 11/01/24 16:04 Sodium Chloride Rt Lindy 0.9% 3 Ml Nebu INH 12/01/24 15:55 3 ml PRN PRN Administration SOLN Tamsulosin HCl 0.4 mg 11/02/24 21:00 Tamsulosin Hcl 0.4 Mg Capsule PO 12/02/24 20:59 HS AMILCAR Vitamin D 1,000 iu 11/02/24 09:00 Cholecalciferol (Vitamin D3) 1,000 Iu Tablet PO 12/02/24 08:59 DAILY AMILCAR Plan Patient is a 74-year-old male with chronic hypoxic respiratory failure on 3 L home O2, COPD, ?IPF, former smoker, history of CVA with residual LLE weakness, HTN, HLD, remote history of seizures on Keppra, CKD stage IIIa, BPH and history of B-cell lymphocytosis who was admitted for acute hypoxic respiratory failure in the setting of COPD exacerbation. Patient presented with cough and SOB, desaturated to 70% while in ED. He was started on IV antibiotics, steroids, BiPAP. #Acute on chronic hypoxic respiratory failure, likely secondary to #Acute COPD exacerbation #Superimposed pneumonia #?IPF On home 3 L right now requiring BiPAP at this time; did not tolerate transition to high flow nasal cannula Continue IV 40 mg Solu-Medrol every 12 hours; Rocephin & doxycycline; scheduled DuoNebs & Trelegy Ellipta; Protonix for GI prophylaxis Incentive spirometer Blood cultures pending #Microcytic anemia #H/o B-cell lymphocytosis Hgb 12, MCV 74 Possible QUITA vs Anemia secondary to kidney disease vs underlying malignancy Unsure if patient received outpatient colonoscopy from work up done in 2020 Follow up iron panel Will consider GI consult vs outpatient workup #CKD stage IIIa #Hyponatremia, mild GFR 53, creatinine improved, 1.2, sodium 147 #HTN BP has been stable Continue home amlodipine, IV Lasix #HLD #History of CVA Continue statin Last lipid panel in August 2024 #History of seizures Resume home Keppra. IV dosing as patient unable to tolerate p.o. meds without desatting Once respiratory status improves, changed back to p.o. #BPH Continue Flomax Dispo: Telemetry for acute hypoxic respiratory failure; continue IV antibiotics; continue BiPAP until patient can be safely weaned; follow-up cultures GI PPx: Protonix DVT PPx: Heparin Diet: Cardiac CODE STATUS: Full code Patient seen and care discussed with my attending Dr. Bautista. Pete Burks MD PGY-3 Attending Provider Attestation/Addendum Patient seen and examined with resident physician Dr. Burks. Note reviewed, agree with findings and recommendations. Patient on BIPAP. unabble to come off for now. continue steroids, Nebs, Abx
[2024-11-02 09:46] LABS: Albumin, Serum 3.9 gm/dL (3.4-4.8); Anion Gap 13 (7-16); BUN/Creatinine Ratio 23 Ratio (12-20); Blood Urea Nitrogen 27 mg/dL (9-23); Calcium 8.3 mg/dL (8.3-10.6); Calcium (Corrected) 8.4 mg/dL (8.5-10.1); Carbon Dioxide 24.5 mMol/L (20.0-31.0); Chloride 110 mMol/L (98-107); Creatinine (Component) 1.2 mg/dL (0.6-1.3); Estimated Creatinine Clearance 70.3 mL/min (>60); Glucose 121 mg/dL (74-106); Osmolality,Calculated 298 (275-295); Phosphorous 2.8 mg/dL (2.4-5.1); Sodium 147 mMol/L (136-145); eGFR > 60 See Note
[2024-11-02] MEDS: PANTOPRAZOLE INJ 40 MG VIAL IVP (09:55)
[2024-11-02] MEDS: levETIRAcetam INJ 100 MG/ML VIAL 5ML 500 MG IVP (09:55)
[2024-11-02] MEDS: FUROSEMIDE INJ 10 MG/ML VIAL 2 ML 20 MG IVP (09:55)
[2024-11-02] MEDS: DOXYCYCLINE INJ 100 MG in SODIUM CHLORIDE 0.9% (POP) 100 ML IV ×2 (09:55→21:04)
--- NOTE | 2024-11-02 10:55 | PC.SS ---
Patient Art Calle is a 74 Year old male admitted for Hypoxia Resp Failure, COPD Exacerbation. SS met with patient at bedside to verify demographic information and Discharge plan. Patient reports he lives at home with family, he reports his , Zee Aguilera is his surrogate decision maker [phone]. Patient reports prior to admission he was able to complete all ADL's independently, patient utilizes a [employer] 02 23/12 on 3L. Patient is currently on Bipap at the time. PCP is Jamaal Bautista and Choice of pharmacy is [facility]. At time of discharge patient reports he will be returning back home, family will provide transportation. Next of kin: , Zee Aguilera Discharge plan: Home
[2024-11-02 11:24] LABS: Ferritin 69 ng/mL (10.5-307.3); Iron 5 mcg/dL (65-175); Percent Iron Saturation 2 % (20-55); Total Iron Binding Capacity 230 mcg/dL (250-425); Unsaturated Iron Binding 225 (225-295)
--- NOTE | 2024-11-02 11:30 | PC.SS ---
SS follow up note; Patient is currently still on bipap. Patient will discharge back home when medically cleared.
[2024-11-02] MEDS: HEPARIN SOD INJ 5000 UNIT/ML VIAL SC ×2 (13:48→21:08)
[2024-11-02] MEDS: ATORVASTATIN CALCIUM 10 MG TABLET PO (21:04)
[2024-11-02] MEDS: TAMSULOSIN HCL 0.4 MG CAPSULE PO (21:04)
[2024-11-03] VITALS (15 sets, daily range): BP systolic 121–160; BP diastolic 85–98; PULSE 95–121; RESP 16–38; TEMP 36.1–36.7; O2SAT 90–100; BMI 32.0
[2024-11-03] MEDS: ALBUTEROL/IPRATROPIUM (Duoneb) RT SOL 3 ML NEBU INH ×6 (03:30→22:11)
[2024-11-03] MEDS: HEPARIN SOD INJ 5000 UNIT/ML VIAL SC ×2 (05:03→14:20)
[2024-11-03] MEDS: TRELEGY ELLIPTA INH (06:17)
[2024-11-03 07:07] LABS: Basophils % (Auto) 0 % (0-2.5); Eosinophils % (Auto) 0 % (0-10); Hematocrit 40.3 % (41.0-53.0); Hemoglobin 12.4 g/dL (13.5-16.0); Immature Granulocytes % (Auto) 1 % (0-0); Immature Granulocytes Auto 0.06 Thou/mm3 (0.00-0.00); Lymphocytes # (Auto) 1.7 Thou/mm3 (1.0-4.8); Lymphocytes % (Auto) 15 % (10-50); Mean Corpuscular HGB Conc 30.8 g/dl (31.0-37.0); Mean Corpuscular Hemoglobin 23.5 pg (25.0-35.0); Mean Corpuscular Volume 76 fL (80-100); Monocytes # (Auto) 0.2 Thou/mm3 (0.0-0.8); Monocytes % (Auto) 1 % (0-12); Neutrophils # (Auto) 9.3 Thou/mm3 (1.8-7.7); Neutrophils % (Auto) 83 % (37-80); Nucleated Red Blood Cell % 0 /100 WBC (0); Platelet Count 228 Thou/mm3 (140-440); RDW Standard Deviation 52.5 fL (35.1-43.9); Red Blood Count 5.28 Miln/mm3 (4.50-5.90); White Blood Count 11.2 Thou/mm3 (3.8-10.6)
--- NOTE | 2024-11-03 07:19 | ESPR_ITS ---
Documentation for date of: 11/03/24 Subjective Subjective Interval history: Mr. 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 is the informant as patient currently is on BiPAP and unable to give me too much information. He denies any fever or chills although complaining of significant weakness. In the emergency department patient was noted to be hypoxic and was placed on BiPAP.WBC 11.9, hemoglobin 12.8, platelets 181. ABG was not done. Sodium 146, potassium 4, BUN 25, creatinine 1.5, GFR 49, lactic acid 3.9, calcium 8.6, LFTs normal, troponin less than 0.02, albumin 4.2, Pro-Mikal 0.36. So far RSV, influenza, bedside COVID are negative. Chest x-ray showed bilateral pneumonia at the lung bases and pulmonary artery hypertension. Patient was diagnosed with COPD exacerbation, pneumonia and was started on Solu- Medrol, IV antibiotics and admitted to telemetry. Home medications: Amlodipine 10 Mg daily, qrtaayswbn-dbkzsolpzcjocp-whasztmkzr 1 puff inhalation daily, vitamin D3 tab daily, vitamin B 12 1000 mcg daily, furosemide 20 Mg daily, Keppra, tamsulosin 0.4 Mg daily at night, simvastatin 20 Mg daily at night 11/02/2024: Patient seen and examined at bedside this morning. No acute overnight events. Patient sleeping but easily arousable. He complains of cough/sore throat and asking for cough syrup. He is also requesting for BiPAP to be taken off; will attempt to transition to HFNC if patient tolerates. Vitals, labs reviewed. Mildly tachycardic and tachypneic. Sats in high 90s, will set goal for 88 to 92%. WBC improved, hemoglobin stable with microcytic anemia noted. CHEM panel pending. Lactic acidosis resolved. Blood cultures pending at this time. Continue breathing treatments, oxygen, steroids for hypoxic respiratory failure; antibiotics for superimposed pneumonia. 11/03/2024: Patient seen and examined at bedside this morning. No acute overnight events. Patient continues to desat when taken off BiPAP, however has not eaten in several days. He is quite upset, asking for food. Will work with nursing and respiratory therapy to transition patient to [facility] with permissible hypoxia while he eats. Patient will be placed back on BiPAP 15 mins after finishing meal. Vitals significant for hypoxia & tachypnea from underlying COPD/PNA. CBC significant for microcytic anemia. Chem panel significant for hyperkalemia and iron panel consistent with QUITA. Kayexalate ordered. Consider starting iron supplementation on discharge. Blood cultures are negative at 24hr. Continue antibiotics. CT from September 2023 reviewed, with fibrosis and significant artifact from patient movement noted. Exam Vital Signs Temp Pulse Resp BP Pulse Ox O2 Del Method O2 Flow Rate 98.0 F 95 30 H 160/92 H 99 BiPAP 40 11/03/24 04:00 11/03/24 06:19 11/03/24 06:19 11/03/24 04:00 11/03/24 06:19 11/03/24 04:00 11/02/24 05:58 FiO2 40 11/03/24 06:19 Narrative Exam Gen: AAOx3, elderly male, pleasant to speak with, on BiPAP HEENT: NCAT, PERRLA, EOMI, MMM, no LAD CVS: normal S1, S2. RRR. No MRG Resp: significantly diminished in uppe/middle lobes, bibasilar rhonchi appreciated Abd: soft, non-tender, non-distended. BS+ in all 4 quadrants MSK: Good ROM in BUE & BLE. No edema or rash. Neuro: CN II-XII grossly intact. Strength 5/5 in BUE & BLE. Objective Labs 11/03/24 06:30 11/03/24 06:30 Labs: Laboratory Results - last 24 hr 11/02/24 11/03/24 08:33 06:30 WBC 10.0 11.2 H RBC 5.08 5.28 Hgb 12.0 L 12.4 L Hct 37.7 L 40.3 L MCV 74 L 76 L MCH 23.6 L 23.5 L MCHC 31.8 30.8 L RDW Std Deviation 50.7 H 52.5 H Plt Count 231 D 228 Neut % (Auto) 83 H 83 H Lymph % (Auto) 15 15 [place] % (Auto) 2 1 Eos % (Auto) 0 0 Baso % (Auto) 0 0 Neut # (Auto) 8.3 H 9.3 H Lymph # (Auto) 1.5 1.7 [place] # (Auto) 0.2 0.2 Eos # (Auto) 0.0 0.0 Baso # (Auto) 0.0 0.0 Immature Gran # (Auto) 0.04 H 0.06 H Absolute Nucleated RBC 0.00 0.00 Immature Gran % 0 1 H Nucleated RBC % 0 0 Sodium 147 H Potassium 4.0 Chloride 110 H Carbon Dioxide 24.5 Anion Gap 13 BUN 27 H Creatinine 1.2 Estim Creat Clear Calc 70.3 eGFR > 60 BUN/Creatinine Ratio 23 H Glucose 121 H Calculated Osmolality 298 H Lactic Acid 1.5 Calcium 8.3 Corrected Calcium 8.4 L Phosphorus 2.8 Iron 5 L TIBC 230 L Iron Saturation 2 L Unsat Iron Binding 225 Ferritin 69 Albumin 3.9 Quality Measures Quality Measures VTE prophylaxis Advance care planning discussed with:: patient Assessment & Plan Assessment Current Active Medications: Generic Name Dose Route Start Last Admin Trade Name Freq PRN Reason Stop Dose Admin Albuterol/Ipratropium 3 ml 11/02/24 07:00 11/03/24 06:17 Albuterol/Ipratropium (Duoneb) Rt Lindy 3 Ml Nebu INH 12/02/24 06:59 3 ml Q4HRRT AMILCAR Administration Amlodipine Besylate 10 mg 11/02/24 09:00 11/02/24 09:40 Amlodipine Besylate 5 Mg Tablet PO 12/02/24 08:59 Not Given QDAY AMILCAR Atorvastatin Calcium 10 mg 11/01/24 22:15 11/02/24 21:04 Atorvastatin Calcium 10 Mg Tablet PO 12/01/24 22:14 10 mg QPM AMILCAR Administration Protocol Multivitamine With 0 ea 11/02/24 09:45 11/02/24 09:56 [id number] [One PO 12/02/24 09:44 Not Given Daily For Men] DAILY [facility] Trelegy Ellipta 0 ea 11/02/24 10:00 11/03/24 06:17 200mcg/62.5mcg/25mcg INH 12/02/24 09:59 1 inha Inhaler DAILY [facility] Administration Cyanocobalamin 1,000 mcg 11/02/24 09:00 11/02/24 09:42 Cyanocobalamin 500 Mcg Tablet PO 12/02/24 08:59 Not Given QDAY AMILCAR Furosemide 20 mg 11/02/24 09:45 11/02/24 09:55 Furosemide Inj 10 Mg/Ml Vial 2 Ml IVP 12/02/24 09:44 20 mg QDAY AMILCAR Administration Guaifenesin 100 mg 11/02/24 09:37 Guaifenesin Syrup 200 Mg/10 Ml Udc PO 12/02/24 09:36 QID PRN COUGH Protocol Heparin Sodium (Porcine) 5,000 unit 11/02/24 06:30 11/03/24 05:03 Heparin Sod Inj 5000 Unit/Ml Vial SC 11/16/24 06:29 5,000 unit Q8HR AMILCAR Administration Ceftriaxone Sodium/Dextrose 1 gm in 50 mls @ 100 mls/hr 11/02/24 09:00 11/02/24 09:07 Rocephin/D5w 1gm Iv Premix IV 11/09/24 08:59 100 mls/hr DAILY AMILCAR Administration Doxycycline Hyclate 100 mg/ 100 mls @ 100 mls/hr 11/02/24 09:45 11/02/24 21:04 Sodium Chloride IV 11/09/24 09:44 100 mls/hr BID AMILCAR Administration Levetiracetam 500 mg 11/02/24 09:35 11/02/24 21:56 Levetiracetam Inj 100 Mg/Ml Vial 5ml IVP 12/02/24 09:34 Not Given Q12HR AMILCAR Methylprednisolone Sodium Succinate 40 mg 11/02/24 09:00 11/02/24 21:03 Methylprednisolone Sod Succ 40 Mg Vial IVP 11/09/24 08:59 40 mg Q12HR AMIL[facility] Administration Pantoprazole Sodium 40 mg 11/02/24 09:45 11/02/24 09:55 Pantoprazole Inj 40 Mg Vial IVP 12/02/24 09:44 40 mg QDAY AMILCAR Administration Sodium Chloride 3 ml 11/01/24 15:56 11/01/24 16:04 Sodium Chloride Rt Lindy 0.9% 3 Ml Nebu INH 12/01/24 15:55 3 ml PRN PRN Administration SOLN Tamsulosin HCl 0.4 mg 11/02/24 21:00 11/02/24 21:04 Tamsulosin Hcl 0.4 Mg Capsule PO 12/02/24 20:59 0.4 mg HS AMILCAR Administration Vitamin D 1,000 iu 11/02/24 09:00 11/02/24 09:41 Cholecalciferol (Vitamin D3) 1,000 Iu Tablet PO 12/02/24 08:59 Not Given DAILY AMILCAR Plan Patient is a 74-year-old male with chronic hypoxic respiratory failure on 3 L home O2, COPD, ?IPF, former smoker, history of CVA with residual LLE weakness, HTN, HLD, remote history of seizures on Keppra, CKD stage IIIa, BPH and history of B-cell lymphocytosis who was admitted for acute hypoxic respiratory failure in the setting of COPD exacerbation. Patient presented with cough and SOB, desaturated to 70% while in ED. He was started on IV antibiotics, steroids, BiPAP. #Acute on chronic hypoxic respiratory failure, likely secondary to #Acute COPD exacerbation #Superimposed pneumonia #?IPF On home 3 L, right now requiring BiPAP at this time; did not tolerate transition to high flow nasal cannula => will allow for permissible hypoxia while patient eats Continue IV 40 mg Solu-Medrol every 12 hours; Rocephin & doxycycline; scheduled DuoNebs & Trelegy Ellipta; Protonix for GI prophylaxis Incentive spirometer Blood cultures negative at [address] (September 2023) concerning for COPD, pulmonary fibrosis, pulmonary artery hypertension and descending thoracic aorta aneurysm #Microcytic anemia #H/o B-cell lymphocytosis Hgb 12.4, MCV 76 Possible QUITA vs Anemia secondary to kidney disease vs underlying malignancy Patient completed outpatient colonoscopy in 2020 Can consider starting iron supplementation on discharge #CKD stage IIIa #Hyponatremia, mild #Hyperkalemia GFR 58, creatinine improved, 1.3, sodium 148, K 5.5 Kayexalate ordered #HTN BP has been stable Continue home amlodipine, IV Lasix #HLD #History of CVA Continue statin Last lipid panel in August 2024 #History of seizures Keppra discontinued, as patient no longer takes it #BPH Continue Flomax Dispo: Telemetry for acute hypoxic respiratory failure; continue IV antibiotics; continue BiPAP until patient can be safely weaned; follow-up cultures GI PPx: Protonix DVT PPx: Heparin Diet: Cardiac CODE STATUS: Full code Patient seen and care discussed with my attending Dr. Bautista. Pete Burks MD PGY-3 Attending Provider Attestation/Addendum Patient seen and examined with resident physician Dr. Burks. Note reviewed, agree with findings and recommendations. Patient remains on CPAP. Requesting to eat. At this point due to his advanced COPD for many years recommended heart to place him on high flow while having 3 meals. Not to worry about her oxygenation as he insists on having food. In the interim continue with breathing treatments, Solu-Medrol, antibiotics and hopeful pulmonary recovery. Plan of care discussed with -she requested Full CODE STATUS for now.
[2024-11-03 07:25] LABS: Alanine Aminotransferase 20 U/L (10-49); Albumin, Serum 4.1 gm/dL (3.4-4.8); Albumin/Globulin Ratio 1.7 (1.2-2.2); Alkaline Phosphatase 111 U/L (46-116); Anion Gap 13 (7-16); Aspartate Amino Transferase 38 U/L (0-34); BUN/Creatinine Ratio 27 Ratio (12-20); Bilirubin,Total 0.5 mg/dL (0.3-1.2); Blood Urea Nitrogen 35 mg/dL (9-23); Carbon Dioxide 27.5 mMol/L (20.0-31.0); Chloride 108 mMol/L (98-107); Creatinine (Component) 1.3 mg/dL (0.6-1.3); Estimated Creatinine Clearance 64.9 mL/min (>60); Globulin 2.4 gm/dL (2.3-3.5); Glucose 112 mg/dL (74-106); Osmolality,Calculated 303 (275-295); Potassium 5.5 mMol/L (3.4-5.1); Sodium 148 mMol/L (136-145); Total Protein 6.5 gm/dL (5.7-8.2); eGFR 58 See Note
[2024-11-03] MEDS: amLODIPine BESYLATE 5 MG TABLET 10 MG PO (08:25)
[2024-11-03] MEDS: CYANOCOBALAMIN 500 MCG 1000 MCG PO (08:25)
[2024-11-03] MEDS: CHOLECALCIFEROL (Vitamin D3) 1,000 IU TABLET 1000 IU PO (08:25)
[2024-11-03] MEDS: SOD POLYSTYRENE SULFON SUSP 15 GM/60 ML BTL PO (08:29)
[2024-11-03] MEDS: PANTOPRAZOLE INJ 40 MG VIAL IVP (08:31)
[2024-11-03] MEDS: cefTRIAXone/D5w 1gm IV premix 1 GM/50 ML BAG IV (08:32)
[2024-11-03] MEDS: FUROSEMIDE INJ 10 MG/ML VIAL 2 ML 20 MG IVP (08:32)
[2024-11-03] MEDS: DOXYCYCLINE INJ 100 MG in SODIUM CHLORIDE 0.9% (POP) 100 ML IV (08:44)
[2024-11-03] MEDS: [UNRECOGNIZED DRUG - OTHER] PO (08:46)
--- NOTE | 2024-11-03 09:59 | PC.SS ---
SS follow up note; Patient continues to desat when taken off BiPAP. Patient is not medically cleared at the time, patient will discharge back home when medically cleared.
[2024-11-03] MEDS: TAMSULOSIN HCL 0.4 MG CAPSULE PO (20:44)
[2024-11-03] MEDS: DOXYCYCLINE 100 MG TABLET PO (20:44)
[2024-11-03] MEDS: ATORVASTATIN CALCIUM 10 MG TABLET PO (20:44)
[2024-11-04] VITALS (15 sets, daily range): BP systolic 124–151; BP diastolic 65–97; PULSE 98–117; RESP 16–30; TEMP 36.1–36.7; O2SAT 89–99; BMI 31.7
[2024-11-04] MEDS: ALBUTEROL/IPRATROPIUM (Duoneb) RT SOL 3 ML NEBU INH ×6 (03:32→23:10)
[2024-11-04 06:44] LABS: Basophils % (Auto) 0 % (0-2.5); Eosinophils % (Auto) 0 % (0-10); Hematocrit 40.6 % (41.0-53.0); Hemoglobin 12.3 g/dL (13.5-16.0); Immature Granulocytes % (Auto) 0 % (0-0); Immature Granulocytes Auto 0.06 Thou/mm3 (0.00-0.00); Lymphocytes % (Auto) 15 % (10-50); Mean Corpuscular HGB Conc 30.3 g/dl (31.0-37.0); Mean Corpuscular Hemoglobin 23.3 pg (25.0-35.0); Mean Corpuscular Volume 77 fL (80-100); Monocytes # (Auto) 0.2 Thou/mm3 (0.0-0.8); Monocytes % (Auto) 2 % (0-12); Neutrophils # (Auto) 11.6 Thou/mm3 (1.8-7.7); Neutrophils % (Auto) 83 % (37-80); Nucleated Red Blood Cell % 0 /100 WBC (0); Platelet Count 291 Thou/mm3 (140-440); RDW Standard Deviation 52.2 fL (35.1-43.9); Red Blood Count 5.27 Miln/mm3 (4.50-5.90); White Blood Count 13.9 Thou/mm3 (3.8-10.6)
[2024-11-04 06:49] LABS: Alanine Aminotransferase 36 U/L (10-49); Albumin, Serum 3.9 gm/dL (3.4-4.8); Albumin/Globulin Ratio 1.7 (1.2-2.2); Alkaline Phosphatase 103 U/L (46-116); Anion Gap 13 (7-16); Aspartate Amino Transferase 54 U/L (0-34); BUN/Creatinine Ratio 33 Ratio (12-20); Bilirubin,Total 0.4 mg/dL (0.3-1.2); Blood Urea Nitrogen 39 mg/dL (9-23); Calcium 8.7 mg/dL (8.3-10.6); Calcium (Corrected) 8.8 mg/dL (8.5-10.1); Carbon Dioxide 27.4 mMol/L (20.0-31.0); Chloride 105 mMol/L (98-107); Creatinine (Component) 1.2 mg/dL (0.6-1.3); Estimated Creatinine Clearance 70.1 mL/min (>60); Globulin 2.3 gm/dL (2.3-3.5); Glucose 119 mg/dL (74-106); Osmolality,Calculated 299 (275-295); Potassium 3.8 mMol/L (3.4-5.1); Sodium 145 mMol/L (136-145); Total Protein 6.2 gm/dL (5.7-8.2); eGFR > 60 See Note
--- NOTE | 2024-11-04 08:50 | ESPR_ITS ---
Documentation for date of: 11/04/24 Subjective Subjective Interval history: Mr. 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 is the informant as patient currently is on BiPAP and unable to give me too much information. He denies any fever or chills although complaining of significant weakness. In the emergency department patient was noted to be hypoxic and was placed on BiPAP.WBC 11.9, hemoglobin 12.8, platelets 181. ABG was not done. Sodium 146, potassium 4, BUN 25, creatinine 1.5, GFR 49, lactic acid 3.9, calcium 8.6, LFTs normal, troponin less than 0.02, albumin 4.2, Pro-Mikal 0.36. So far RSV, influenza, bedside COVID are negative. Chest x-ray showed bilateral pneumonia at the lung bases and pulmonary artery hypertension. Patient was diagnosed with COPD exacerbation, pneumonia and was started on Solu- Medrol, IV antibiotics and admitted to telemetry. Home medications: Amlodipine 10 Mg daily, coqtvyuize-sujkuegtmozdve-sfwpnemhhp 1 puff inhalation daily, vitamin D3 tab daily, vitamin B 12 1000 mcg daily, furosemide 20 Mg daily, Keppra, tamsulosin 0.4 Mg daily at night, simvastatin 20 Mg daily at night 11/02/2024: Patient seen and examined at bedside this morning. No acute overnight events. Patient sleeping but easily arousable. He complains of cough/sore throat and asking for cough syrup. He is also requesting for BiPAP to be taken off; will attempt to transition to HFNC if patient tolerates. Vitals, labs reviewed. Mildly tachycardic and tachypneic. Sats in high 90s, will set goal for 88 to 92%. WBC improved, hemoglobin stable with microcytic anemia noted. CHEM panel pending. Lactic acidosis resolved. Blood cultures pending at this time. Continue breathing treatments, oxygen, steroids for hypoxic respiratory failure; antibiotics for superimposed pneumonia. 11/03/2024: Patient seen and examined at bedside this morning. No acute overnight events. Patient continues to desat when taken off BiPAP, however has not eaten in several days. He is quite upset, asking for food. Will work with nursing and respiratory therapy to transition patient to HFNC with permissible hypoxia while he eats. Patient will be placed back on BiPAP 15 mins after finishing meal. Vitals significant for hypoxia & tachypnea from underlying COPD/PNA. CBC significant for microcytic anemia. Chem panel significant for hyperkalemia and iron panel consistent with QUITA. Kayexalate ordered. Consider starting iron supplementation on discharge. Blood cultures are negative at 24hr. Continue antibiotics. CT from September 2023 reviewed, with fibrosis and significant artifact from patient movement noted. 11/04/2024: Patient seen and examined at bedside this morning. No acute overnight events. He remained on high flow nasal cannula through the night with frequent monitoring and has been oxygenating fine. Vitals significant for tachycardia/tachypnea; saturating at 90% on 24 L at 60% FiO2. IDANIA index score 5.36 points, indicating low risk of intubation. Encouraged patient to continue with incentive spirometer. Labs reviewed. Leukocytosis noted, likely related to steroids. Patient continues to have a microcytic anemia. CHEM panel showing improvement in sodium and potassium, 145 and 3.8 respectively. Mild elevation in AST. Blood culture showing no growth after 48 hours. Exam Vital Signs Temp Pulse Resp BP Pulse Ox O2 Del Method O2 Flow Rate 97.8 F 108 H 30 H 149/97 H 94 L High Flow Nasal Cannula 28 11/04/24 08:00 11/04/24 08:00 11/04/24 08:00 11/04/24 08:00 11/04/24 08:00 11/04/24 08:00 11/04/24 08:00 FiO2 70 11/04/24 08:00 Narrative Exam Gen: AAOx3, elderly male, pleasant to speak with, on HFNC HEENT: NCAT, PERRLA, EOMI, MMM, no LAD CVS: normal S1, S2. RRR. No MRG Resp: significantly diminished in upper/middle lobes, bibasilar rhonchi appreciated Abd: soft, non-tender, non-distended. BS+ in all 4 quadrants MSK: Good ROM in BUE & BLE. No edema or rash. Neuro: CN II-XII grossly intact. Strength 5/5 in BUE & BLE. Objective Labs 11/04/24 06:25 11/04/24 06:25 Labs: Laboratory Results - last 24 hr 11/04/24 06:25 WBC 13.9 H RBC 5.27 Hgb 12.3 L Hct 40.6 L MCV 77 L MCH 23.3 L MCHC 30.3 L RDW Std Deviation 52.2 H Plt Count 291 D Neut % (Auto) 83 H Lymph % (Auto) 15 [place] % (Auto) 2 Eos % (Auto) 0 Baso % (Auto) 0 Neut # (Auto) 11.6 H Lymph # (Auto) 2.0 [place] # (Auto) 0.2 Eos # (Auto) 0.0 Baso # (Auto) 0.0 Immature Gran # (Auto) 0.06 H Absolute Nucleated RBC 0.00 Immature Gran % 0 Nucleated RBC % 0 Sodium 145 Potassium 3.8 D Chloride 105 Carbon Dioxide 27.4 Anion Gap 13 BUN 39 H Creatinine 1.2 Estim Creat Clear Calc 70.1 eGFR > 60 BUN/Creatinine Ratio 33 H Glucose 119 H Calculated Osmolality 299 H Calcium 8.7 Corrected Calcium 8.8 Total Bilirubin 0.4 AST 54 H ALT 36 Alkaline Phosphatase 103 Total Protein 6.2 Albumin 3.9 Globulin 2.3 Albumin/Globulin Ratio 1.7 Quality Measures Quality Measures VTE prophylaxis Advance care planning discussed with:: patient and spouse Assessment & Plan Assessment Current Active Medications: Generic Name Dose Route Start Last Admin Trade Name Freq PRN Reason Stop Dose Admin Albuterol/Ipratropium 3 ml 11/02/24 07:00 11/04/24 07:11 Albuterol/Ipratropium (Duoneb) Rt Lindy 3 Ml Nebu INH 12/02/24 06:59 3 ml Q4HRRT AMILCAR Administration Amlodipine Besylate 10 mg 11/02/24 09:00 11/03/24 08:25 Amlodipine Besylate 5 Mg Tablet PO 12/02/24 08:59 10 mg QDAY AMILCAR Administration Atorvastatin Calcium 10 mg 11/01/24 22:15 11/03/24 20:44 Atorvastatin Calcium 10 Mg Tablet PO 12/01/24 22:14 10 mg QPM AMILCAR Administration Protocol Multivitamine With 0 ea 11/02/24 09:45 11/03/24 08:46 Suk-Ym-Wsdzzhfb [One PO 12/02/24 09:44 1 tablet Daily For Men] DAILY AMILCAR Administration Trelegy Ellipta 0 ea 11/02/24 10:00 11/03/24 06:17 200mcg/62.5mcg/25mcg INH 12/02/24 09:59 1 inha Inhaler DAILY AMILCAR Administration Cyanocobalamin 1,000 mcg 11/02/24 09:00 11/03/24 08:25 Cyanocobalamin 500 Mcg Tablet PO 12/02/24 08:59 1,000 mcg QDAY AMILCAR Administration Doxycycline Hyclate 100 mg 11/03/24 21:00 11/03/24 20:44 Doxycycline 100 Mg Tablet PO 11/10/24 20:59 100 mg BID AMILCAR Administration Protocol Furosemide 20 mg 11/02/24 09:45 11/03/24 08:32 Furosemide Inj 10 Mg/Ml Vial 2 Ml IVP 12/02/24 09:44 20 mg QDAY AMILCAR Administration Guaifenesin 100 mg 11/02/24 09:37 Guaifenesin Syrup 200 Mg/10 Ml Udc PO 12/02/24 09:36 QID PRN COUGH Protocol Heparin Sodium (Porcine) 5,000 unit 11/02/24 06:30 11/04/24 05:17 Heparin Sod Inj 5000 Unit/Ml Vial SC 11/16/24 06:29 Not Given Q8HR AMILCAR Ceftriaxone Sodium/Dextrose 1 gm in 50 mls @ 100 mls/hr 11/02/24 09:00 11/03/24 20:00 Rocephin/D5w 1gm Iv Premix IV 11/09/24 08:59 Infused DAILY AMILCAR Infusion Methylprednisolone Sodium Succinate 40 mg 11/02/24 09:00 11/03/24 20:44 Methylprednisolone Sod Succ 40 Mg Vial IVP 11/09/24 08:59 40 mg Q12HR AMILCAR Administration Pantoprazole Sodium 40 mg 11/04/24 09:00 Pantoprazole 40 Mg Tablet PO 12/04/24 08:59 QDAY AMILCAR Protocol Sodium Chloride 3 ml 11/01/24 15:56 11/01/24 16:04 Sodium Chloride Rt Lindy 0.9% 3 Ml Nebu INH 12/01/24 15:55 3 ml PRN PRN Administration SOLN Tamsulosin HCl 0.4 mg 11/02/24 21:00 11/03/24 20:44 Tamsulosin Hcl 0.4 Mg Capsule PO 12/02/24 20:59 0.4 mg HS AMILCAR Administration Vitamin D 1,000 iu 11/02/24 09:00 11/03/24 08:25 Cholecalciferol (Vitamin D3) 1,000 Iu Tablet PO 12/02/24 08:59 1,000 iu DAILY AMILCAR Administration Plan Patient is a 74-year-old male with chronic hypoxic respiratory failure on 3 L home O2, COPD, ?IPF, former smoker, history of CVA with residual LLE weakness, HTN, HLD, remote history of seizures on Keppra, CKD stage IIIa, BPH and history of B-cell lymphocytosis who was admitted for acute hypoxic respiratory failure in the setting of COPD exacerbation. Patient presented with cough and SOB, desaturated to 70% while in ED. He was started on IV antibiotics, steroids, BiPAP. #Acute on chronic hypoxic respiratory failure, likely secondary to #Acute COPD exacerbation #Superimposed pneumonia #?IPF #Leukocytosis Patient typically uses 3 L home O2. Initially required BiPAP, however has been weaned down to high flow nasal cannula. Current settings 24 L at 60% FiO2. SaO2 goal 88-92%. We will allow for permissible hypoxia while patient eats. Patient can be placed on BiPAP overnight if he desaturates, and does not respond to increase FiO2/flow from high flow nasal cannula Leukocytosis likely reactive to steroids Continue IV 40 mg Solu-Medrol every 12 hours for total 5 days; Rocephin & doxycycline; scheduled DuoNebs & Trelegy Ellipta; Protonix for GI prophylaxis Incentive spirometer Blood cultures negative at [address] (September 2023) concerning for COPD, pulmonary fibrosis, pulmonary artery hypertension and descending thoracic aorta aneurysm #Microcytic anemia #H/o B-cell lymphocytosis Hgb 12.3, MCV 77 Possible QUITA vs Anemia secondary to kidney disease vs underlying malignancy Patient completed outpatient colonoscopy in 2020 Can consider starting iron supplementation on discharge #CKD stage IIIa #Hypernatremia, mild, improving #Hyperkalemia, improved Creatinine 1.2, sodium 145, potassium 3.8 #HTN BP has been stable Continue home amlodipine, IV Lasix #HLD #History of CVA Continue statin Last lipid panel in August 2024 #History of seizures Keppra discontinued, as patient no longer takes it #BPH Continue Flomax Dispo: Telemetry for acute hypoxic respiratory failure; continue IV antibiotics; continue noninvasive ventilation until patient can be safely weaned to home O2; continue incentive spirometry GI PPx: Protonix DVT PPx: Heparin Diet: Cardiac CODE STATUS: Full code Patient seen and care discussed with my attending Dr. Bautista. Pete Burks MD PGY-3 Attending Provider Attestation/Addendum Patient seen and examined with resident physician Dr. Burks. Note reviewed, agree with findings and recommendations. Patient presented with significant shortness of breath and fluid overload. patient currently seen in telemetry. On high flow oxygen. Will start decreasing the oxygenation requirement. Ambulate.
[2024-11-04] MEDS: FUROSEMIDE INJ 10 MG/ML VIAL 2 ML 20 MG IVP (09:27)
[2024-11-04] MEDS: cefTRIAXone/D5w 1gm IV premix 1 GM/50 ML BAG IV (09:28)
[2024-11-04] MEDS: amLODIPine BESYLATE 5 MG TABLET 10 MG PO (09:29)
[2024-11-04] MEDS: CYANOCOBALAMIN 500 MCG 1000 MCG PO (09:29)
[2024-11-04] MEDS: PANTOPRAZOLE 40 MG TABLET PO (09:30)
[2024-11-04] MEDS: [UNRECOGNIZED DRUG - OTHER] PO (09:30)
[2024-11-04] MEDS: DOXYCYCLINE 100 MG TABLET PO ×2 (09:30→20:23)
[2024-11-04] MEDS: CHOLECALCIFEROL (Vitamin D3) 1,000 IU TABLET 1000 IU PO (09:30)
[2024-11-04] MEDS: HEPARIN SOD INJ 5000 UNIT/ML VIAL SC (13:29)
--- NOTE | 2024-11-04 17:09 | PC.SS ---
Update: Patient currently on high flow oxygen, 22L. Plan is to titrate down patient's oxygen requirement.
[2024-11-04] MEDS: ATORVASTATIN CALCIUM 10 MG TABLET PO (20:22)
[2024-11-04] MEDS: TAMSULOSIN HCL 0.4 MG CAPSULE PO (20:22)
[2024-11-05] VITALS (16 sets, daily range): BP systolic 112–140; BP diastolic 66–97; PULSE 73–117; RESP 17–28; TEMP 36.1–36.7; O2SAT 87–100; BMI 31.7; BMI 31.6
[2024-11-05] MEDS: ALBUTEROL/IPRATROPIUM (Duoneb) RT SOL 3 ML NEBU INH ×5 (02:45→22:50)
[2024-11-05 05:31] LABS: Basophils % (Auto) 0 % (0-2.5); Eosinophils % (Auto) 0 % (0-10); Hematocrit 37.6 % (41.0-53.0); Hemoglobin 11.9 g/dL (13.5-16.0); Immature Granulocytes % (Auto) 1 % (0-0); Immature Granulocytes Auto 0.06 Thou/mm3 (0.00-0.00); Lymphocytes # (Auto) 1.9 Thou/mm3 (1.0-4.8); Lymphocytes % (Auto) 20 % (10-50); Mean Corpuscular HGB Conc 31.6 g/dl (31.0-37.0); Mean Corpuscular Hemoglobin 23.3 pg (25.0-35.0); Mean Corpuscular Volume 74 fL (80-100); Monocytes # (Auto) 0.1 Thou/mm3 (0.0-0.8); Monocytes % (Auto) 2 % (0-12); Neutrophils # (Auto) 7.3 Thou/mm3 (1.8-7.7); Neutrophils % (Auto) 78 % (37-80); Nucleated Red Blood Cell % 0 /100 WBC (0); Platelet Count 235 Thou/mm3 (140-440); RDW Standard Deviation 49.3 fL (35.1-43.9); Red Blood Count 5.11 Miln/mm3 (4.50-5.90); White Blood Count 9.4 Thou/mm3 (3.8-10.6)
[2024-11-05 05:50] LABS: Alanine Aminotransferase 53 U/L (10-49); Albumin, Serum 3.7 gm/dL (3.4-4.8); Albumin/Globulin Ratio 1.8 (1.2-2.2); Alkaline Phosphatase 89 U/L (46-116); Anion Gap 11 (7-16); Aspartate Amino Transferase 51 U/L (0-34); BUN/Creatinine Ratio 26 Ratio (12-20); Bilirubin,Total 0.4 mg/dL (0.3-1.2); Blood Urea Nitrogen 31 mg/dL (9-23); Calcium 8.3 mg/dL (8.3-10.6); Calcium (Corrected) 8.5 mg/dL (8.5-10.1); Carbon Dioxide 27.1 mMol/L (20.0-31.0); Chloride 106 mMol/L (98-107); Creatinine (Component) 1.2 mg/dL (0.6-1.3); Estimated Creatinine Clearance 70.1 mL/min (>60); Globulin 2.1 gm/dL (2.3-3.5); Glucose 174 mg/dL (74-106); Osmolality,Calculated 297 (275-295); Potassium 3.7 mMol/L (3.4-5.1); Sodium 144 mMol/L (136-145); Total Protein 5.8 gm/dL (5.7-8.2); eGFR > 60 See Note
[2024-11-05] MEDS: cefTRIAXone/D5w 1gm IV premix 1 GM/50 ML BAG IV (09:04)
[2024-11-05] MEDS: FUROSEMIDE INJ 10 MG/ML VIAL 2 ML 20 MG IVP (09:05)
[2024-11-05] MEDS: amLODIPine BESYLATE 5 MG TABLET 10 MG PO (09:13)
[2024-11-05] MEDS: CHOLECALCIFEROL (Vitamin D3) 1,000 IU TABLET 1000 IU PO (09:14)
[2024-11-05] MEDS: PANTOPRAZOLE 40 MG TABLET PO (09:14)
[2024-11-05] MEDS: DOXYCYCLINE 100 MG TABLET PO ×2 (09:19→20:35)
[2024-11-05] MEDS: CYANOCOBALAMIN 500 MCG 1000 MCG PO (09:19)
[2024-11-05] MEDS: [UNRECOGNIZED DRUG - OTHER] PO (09:24)
[2024-11-05] MEDS: HEPARIN SOD INJ 5000 UNIT/ML VIAL SC ×2 (14:25→21:01)
--- NOTE | 2024-11-05 15:19 | PD.RESPRO ---
Documentation for date of: 11/05/24 Subjective Subjective Interval history: Mr. 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 is the informant as patient currently is on BiPAP and unable to give me too much information. He denies any fever or chills although complaining of significant weakness. In the emergency department patient was noted to be hypoxic and was placed on BiPAP.WBC 11.9, hemoglobin 12.8, platelets 181. ABG was not done. Sodium 146, potassium 4, BUN 25, creatinine 1.5, GFR 49, lactic acid 3.9, calcium 8.6, LFTs normal, troponin less than 0.02, albumin 4.2, Pro-Mikal 0.36. So far RSV, influenza, bedside COVID are negative. Chest x-ray showed bilateral pneumonia at the lung bases and pulmonary artery hypertension. Patient was diagnosed with COPD exacerbation, pneumonia and was started on Solu-Medrol, IV antibiotics and admitted to telemetry. Home medications: Amlodipine 10 Mg daily, axnshcfzmn-vecodsodqkfoee-rfaxzmuqrx 1 puff inhalation daily, vitamin D3 tab daily, vitamin B 12 1000 mcg daily, furosemide 20 Mg daily, Keppra, tamsulosin 0.4 Mg daily at night, simvastatin 20 Mg daily at night 11/02/2024: Patient seen and examined at bedside this morning. No acute overnight events. Patient sleeping but easily arousable. He complains of cough/sore throat and asking for cough syrup. He is also requesting for BiPAP to be taken off; will attempt to transition to HFNC if patient tolerates. Vitals, labs reviewed. Mildly tachycardic and tachypneic. Sats in high 90s, will set goal for 88 to 92%. WBC improved, hemoglobin stable with microcytic anemia noted. CHEM panel pending. Lactic acidosis resolved. Blood cultures pending at this time. Continue breathing treatments, oxygen, steroids for hypoxic respiratory failure; antibiotics for superimposed pneumonia. 11/03/2024: Patient seen and examined at bedside this morning. No acute overnight events. Patient continues to desat when taken off BiPAP, however has not eaten in several days. He is quite upset, asking for food. Will work with nursing and respiratory therapy to transition patient to HFNC with permissible hypoxia while he eats. Patient will be placed back on BiPAP 15 mins after finishing meal. Vitals significant for hypoxia & tachypnea from underlying COPD/PNA. CBC significant for microcytic anemia. Chem panel significant for hyperkalemia and iron panel consistent with QUITA. Kayexalate ordered. Consider starting iron supplementation on discharge. Blood cultures are negative at 24hr. Continue antibiotics. CT from September 2023 reviewed, with fibrosis and significant artifact from patient movement noted. 11/04/2024: Patient seen and examined at bedside this morning. No acute overnight events. He remained on high flow nasal cannula through the night with frequent monitoring and has been oxygenating fine. Vitals significant for tachycardia/tachypnea; saturating at 90% on 24 L at 60% FiO2. IDANIA index score 5.36 points, indicating low risk of intubation. Encouraged patient to continue with incentive spirometer. Labs reviewed. Leukocytosis noted, likely related to steroids. Patient continues to have a microcytic anemia. CHEM panel showing improvement in sodium and potassium, 145 and 3.8 respectively. Mild elevation in AST. Blood culture showing no growth after 48 hours. 11/05/2024: Patient seen at the bedside, currently comfortable, unable to wean off high flow, patient currently stays on 25 L/min high flow nasal cannula at, 60% FiO2, saturating well. Continue to use incentive spirometry. Urine output 1800 mL, -365 mL net negative over last 24 hours. Sodium 144, potassium 3.7, BUN 31, creatinine 1.2. Plan to discharge once patient is able to saturate well at 4 L oxygen. Exam Vital Signs Temp Pulse Resp BP Pulse Ox O2 Del Method O2 Flow Rate 97.0 F 109 H 22 H 125/97 H 94 L High Flow Nasal Cannula 20 11/05/24 12:00 11/05/24 14:47 11/05/24 14:47 11/05/24 12:00 11/05/24 14:47 11/05/24 12:00 11/05/24 14:47 FiO2 55 11/05/24 14:47 Narrative Exam Gen: AAOx3, elderly male, pleasant to speak with, on HFNC HEENT: NCAT, PERRLA, EOMI, MMM, no LAD CVS: normal S1, S2. RRR. No MRG Resp: significantly diminished in upper/middle lobes, bibasilar rhonchi appreciated Abd: soft, non-tender, non-distended. BS+ in all 4 quadrants MSK: Good ROM in BUE & BLE. No edema or rash. Neuro: CN II-XII grossly intact. Strength 5/5 in BUE & BLE. Objective Labs 11/05/24 05:07 11/05/24 05:07 Labs: Laboratory Results - last 24 hr 11/05/24 05:07 WBC 9.4 RBC 5.11 Hgb 11.9 L Hct 37.6 L MCV 74 L MCH 23.3 L MCHC 31.6 RDW Std Deviation 49.3 H Plt Count 235 D Neut % (Auto) 78 Lymph % (Auto) 20 [place] % (Auto) 2 Eos % (Auto) 0 Baso % (Auto) 0 Neut # (Auto) 7.3 Lymph # (Auto) 1.9 [place] # (Auto) 0.1 Eos # (Auto) 0.0 Baso # (Auto) 0.0 Immature Gran # (Auto) 0.06 H Absolute Nucleated RBC 0.00 Immature Gran % 1 H Nucleated RBC % 0 Sodium 144 Potassium 3.7 Chloride 106 Carbon Dioxide 27.1 Anion Gap 11 BUN 31 H Creatinine 1.2 Estim Creat Clear Calc 70.1 eGFR > 60 BUN/Creatinine Ratio 26 H Glucose 174 H D Calculated Osmolality 297 H Calcium 8.3 Corrected Calcium 8.5 Total Bilirubin 0.4 AST 51 H ALT 53 H Alkaline Phosphatase 89 Total Protein 5.8 Albumin 3.7 Globulin 2.1 L Albumin/Globulin Ratio 1.8 Quality Measures Quality Measures VTE prophylaxis Advance care planning discussed with:: patient Assessment & Plan Assessment Current Active Medications: Generic Name Dose Route Start Last Admin Trade Name Freq PRN Reason Stop Dose Admin Albuterol/Ipratropium 3 ml 11/02/24 07:00 11/05/24 14:45 Albuterol/Ipratropium (Duoneb) Rt Lindy 3 Ml Nebu INH 12/02/24 06:59 3 ml Q4HRRT AMILCAR Administration Amlodipine Besylate 10 mg 11/02/24 09:00 11/05/24 09:13 Amlodipine Besylate 5 Mg Tablet PO 12/02/24 08:59 10 mg QDAY AMILCAR Administration Atorvastatin Calcium 10 mg 11/01/24 22:15 11/04/24 20:22 Atorvastatin Calcium 10 Mg Tablet PO 12/01/24 22:14 10 mg QPM AMILCAR Administration Protocol Multivitamine With 0 ea 11/02/24 09:45 11/05/24 09:24 Qtp-Xr-Sylqqjma [One PO 12/02/24 09:44 1 tablet Daily For Men] DAILY AMILCAR Administration Trelegy Ellipta 0 ea 11/02/24 10:00 11/03/24 06:17 200mcg/62.5mcg/25mcg INH 12/02/24 09:59 1 inha Inhaler DAILY AMILCAR Administration Cyanocobalamin 1,000 mcg 11/02/24 09:00 11/05/24 09:19 Cyanocobalamin 500 Mcg Tablet PO 12/02/24 08:59 1,000 mcg QDAY AMILCAR Administration Doxycycline Hyclate 100 mg 11/03/24 21:00 11/05/24 09:19 Doxycycline 100 Mg Tablet PO 11/10/24 20:59 100 mg BID AMILCAR Administration Protocol Furosemide 20 mg 11/02/24 09:45 11/05/24 09:05 Furosemide Inj 10 Mg/Ml Vial 2 Ml IVP 12/02/24 09:44 20 mg QDAY AMILCAR Administration Guaifenesin 100 mg 11/02/24 09:37 Guaifenesin Syrup 200 Mg/10 Ml Udc PO 12/02/24 09:36 QID PRN COUGH Protocol Heparin Sodium (Porcine) 5,000 unit 11/02/24 06:30 11/05/24 14:25 Heparin Sod Inj 5000 Unit/Ml Vial SC 11/16/24 06:29 5,000 unit Q8HR AMILCAR Administration Ceftriaxone Sodium/Dextrose 1 gm in 50 mls @ 100 mls/hr 11/02/24 09:00 11/05/24 09:04 Rocephin/D5w 1gm Iv Premix IV 11/09/24 08:59 100 mls/hr DAILY AMILCAR Administration Methylprednisolone Sodium Succinate 40 mg 11/02/24 09:00 11/05/24 09:24 Methylprednisolone Sod Succ 40 Mg Vial IVP 11/09/24 08:59 40 mg Q12HR AMILCAR Administration Pantoprazole Sodium 40 mg 11/04/24 09:00 11/05/24 09:14 Pantoprazole 40 Mg Tablet PO 12/04/24 08:59 40 mg QDAY AMILCAR Administration Protocol Sodium Chloride 3 ml 11/01/24 15:56 11/01/24 16:04 Sodium Chloride Rt Lindy 0.9% 3 Ml Nebu INH 12/01/24 15:55 3 ml PRN PRN Administration SOLN Tamsulosin HCl 0.4 mg 11/02/24 21:00 11/04/24 20:22 Tamsulosin Hcl 0.4 Mg Capsule PO 12/02/24 20:59 0.4 mg HS AMILCAR Administration Vitamin D 1,000 iu 11/02/24 09:00 11/05/24 09:14 Cholecalciferol (Vitamin D3) 1,000 Iu Tablet PO 12/02/24 08:59 1,000 iu DAILY AMILCAR Administration Plan Patient is a 74-year-old male with chronic hypoxic respiratory failure on 3 L home O2, COPD, ?IPF, former smoker, history of CVA with residual LLE weakness, HTN, HLD, remote history of seizures on Keppra, CKD stage IIIa, BPH and history of B-cell lymphocytosis who was admitted for acute hypoxic respiratory failure in the setting of COPD exacerbation. Patient presented with cough and SOB, desaturated to 70% while in ED. He was started on IV antibiotics, steroids, BiPAP. #Acute on chronic hypoxic respiratory failure, likely secondary to #Acute COPD exacerbation #Superimposed pneumonia #?IPF #Leukocytosis Patient typically uses 3 L home O2. Initially required BiPAP, however has been weaned down to high flow nasal cannula. Current settings 24 L at 60% FiO2. SaO2 goal 88-92%. We will allow for permissible hypoxia while patient eats. Patient can be placed on BiPAP overnight if he desaturates, and does not respond to increase FiO2/flow from high flow nasal cannula Leukocytosis likely reactive to steroids Continue IV 40 mg Solu-Medrol every 12 hours for total 5 days; Rocephin & doxycycline; scheduled DuoNebs & Trelegy Ellipta; Protonix for GI prophylaxis Incentive spirometer Blood cultures negative at [address] (September 2023) concerning for COPD, pulmonary fibrosis, pulmonary artery hypertension and descending thoracic aorta aneurysm #Microcytic anemia #H/o B-cell lymphocytosis Hgb 12.3, MCV 77 Possible QUITA vs Anemia secondary to kidney disease vs underlying malignancy Patient completed outpatient colonoscopy in 2020 Can consider starting iron supplementation on discharge #CKD stage IIIa #Hypernatremia, mild, improving #Hyperkalemia, improved Creatinine 1.2, sodium 145, potassium 3.8 #HTN BP has been stable Continue home amlodipine, IV Lasix #HLD #History of CVA Continue statin Last lipid panel in August 2024 #History of seizures Keppra discontinued, as patient no longer takes it #BPH Continue Flomax Dispo: Telemetry for acute hypoxic respiratory failure; continue IV antibiotics; continue noninvasive ventilation until patient can be safely weaned to home O2; continue incentive spirometry GI PPx: Protonix DVT PPx: Heparin Diet: Cardiac CODE STATUS: Full code Patient seen and care discussed with my attending Dr. Bautista. Josie pgy2 Attending Provider Attestation/Addendum Patient seen and examined with resident physician Dr. Galindo. Note reviewed, agree with findings and recommendations. Patient presented with significant shortness of breath and fluid overload. patient currently seen in telemetry. On high flow oxygen 25l/min. Will start decreasing the oxygenation requirement.
[2024-11-05] MEDS: ATORVASTATIN CALCIUM 10 MG TABLET PO (20:35)
[2024-11-05] MEDS: TAMSULOSIN HCL 0.4 MG CAPSULE PO (20:36)
[2024-11-06] VITALS (16 sets, daily range): BP systolic 104–144; BP diastolic 50–89; PULSE 82–116; RESP 20–27; TEMP 36.1–36.6; O2SAT 81–99
[2024-11-06] MEDS: ALBUTEROL/IPRATROPIUM (Duoneb) RT SOL 3 ML NEBU INH ×6 (03:40→23:30)
[2024-11-06] MEDS: HEPARIN SOD INJ 5000 UNIT/ML VIAL SC ×3 (05:31→21:02)
--- NOTE | 2024-11-06 08:34 | ESPR_ITS ---
Documentation for date of: 11/06/24 Subjective Subjective Interval history: Mr. 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 is the informant as patient currently is on BiPAP and unable to give me too much information. He denies any fever or chills although complaining of significant weakness. In the emergency department patient was noted to be hypoxic and was placed on BiPAP.WBC 11.9, hemoglobin 12.8, platelets 181. ABG was not done. Sodium 146, potassium 4, BUN 25, creatinine 1.5, GFR 49, lactic acid 3.9, calcium 8.6, LFTs normal, troponin less than 0.02, albumin 4.2, Pro-Mikal 0.36. So far RSV, influenza, bedside COVID are negative. Chest x-ray showed bilateral pneumonia at the lung bases and pulmonary artery hypertension. Patient was diagnosed with COPD exacerbation, pneumonia and was started on Solu- Medrol, IV antibiotics and admitted to telemetry. Home medications: Amlodipine 10 Mg daily, puuohclfdw-svikzzkdrepzjo-obqroawajl 1 puff inhalation daily, vitamin D3 tab daily, vitamin B 12 1000 mcg daily, furosemide 20 Mg daily, Keppra, tamsulosin 0.4 Mg daily at night, simvastatin 20 Mg daily at night 11/02/2024: Patient seen and examined at bedside this morning. No acute overnight events. Patient sleeping but easily arousable. He complains of cough/sore throat and asking for cough syrup. He is also requesting for BiPAP to be taken off; will attempt to transition to HFNC if patient tolerates. Vitals, labs reviewed. Mildly tachycardic and tachypneic. Sats in high 90s, will set goal for 88 to 92%. WBC improved, hemoglobin stable with microcytic anemia noted. CHEM panel pending. Lactic acidosis resolved. Blood cultures pending at this time. Continue breathing treatments, oxygen, steroids for hypoxic respiratory failure; antibiotics for superimposed pneumonia. 11/03/2024: Patient seen and examined at bedside this morning. No acute overnight events. Patient continues to desat when taken off BiPAP, however has not eaten in several days. He is quite upset, asking for food. Will work with nursing and respiratory therapy to transition patient to HFNC with permissible hypoxia while he eats. Patient will be placed back on BiPAP 15 mins after finishing meal. Vitals significant for hypoxia & tachypnea from underlying COPD/PNA. CBC significant for microcytic anemia. Chem panel significant for hyperkalemia and iron panel consistent with QUITA. Kayexalate ordered. Consider starting iron supplementation on discharge. Blood cultures are negative at 24hr. Continue antibiotics. CT from September 2023 reviewed, with fibrosis and significant artifact from patient movement noted. 11/04/2024: Patient seen and examined at bedside this morning. No acute overnight events. He remained on high flow nasal cannula through the night with frequent monitoring and has been oxygenating fine. Vitals significant for tachycardia/tachypnea; saturating at 90% on 24 L at 60% FiO2. IDANIA index score 5.36 points, indicating low risk of intubation. Encouraged patient to continue with incentive spirometer. Labs reviewed. Leukocytosis noted, likely related to steroids. Patient continues to have a microcytic anemia. CHEM panel showing improvement in sodium and potassium, 145 and 3.8 respectively. Mild elevation in AST. Blood culture showing no growth after 48 hours. 11/05/2024: Patient seen at the bedside, currently comfortable, unable to wean off high flow, patient currently stays on 25 L/min high flow nasal cannula at, 60% FiO2, saturating well. Continue to use incentive spirometry. Urine output 1800 mL, -365 mL net negative over last 24 hours. Sodium 144, potassium 3.7, BUN 31, creatinine 1.2. Plan to discharge once patient is able to saturate well at 4-5 L oxygen. 11/06/2024 patient seen at the bedside, sitting at the side of bed ready to eat breakfast. Reported no active complaints. Patient is saturating 95% on high flow nasal cannula 25 L FiO2 60%. Patient continued to saturate well on decreasing oxygen to 15 L/min 60% FiO2, target SPO2 88% and above, can continue to wean down oxygen as tolerated. Patient can be discharged home once able to wean off oxygen to 4 to 5 L nasal cannula. Exam Vital Signs Temp Pulse Resp BP Pulse Ox O2 Del Method O2 Flow Rate 96.9 F 94 26 H 140/89 H 96 High Flow Nasal Cannula 25 11/06/24 08:00 11/06/24 08:00 11/06/24 08:00 11/06/24 08:00 11/06/24 08:00 11/06/24 08:00 11/06/24 08:00 FiO2 75 11/06/24 08:00 Narrative Exam Gen: AAOx3, elderly male, asymptomatic, sitting at the side of bed, on high flow nasal cannula HEENT: NCAT, PERRLA, EOMI, MMM, no LAD CVS: normal S1, S2. RRR. No MRG Resp: Improvement in wheezing noted, minimal rhonchi bilateral basal sounds. Abd: soft, non-tender, non-distended. BS+ in all 4 quadrants MSK: Good ROM in BUE & BLE. No edema or rash. Neuro: CN II-XII grossly intact. Strength 5/5 in BUE & BLE. Objective Labs 11/05/24 05:07 11/05/24 05:07 Quality Measures Quality Measures VTE prophylaxis Advance care planning discussed with:: patient Assessment & Plan Assessment Current Active Medications: Generic Name Dose Route Start Last Admin Trade Name Freq PRN Reason Stop Dose Admin Albuterol/Ipratropium 3 ml 11/02/24 07:00 11/06/24 07:03 Albuterol/Ipratropium (Duoneb) Rt Lindy 3 Ml Nebu INH 12/02/24 06:59 3 ml Q4HRRT AMILCAR Administration Amlodipine Besylate 10 mg 11/02/24 09:00 11/05/24 09:13 Amlodipine Besylate 5 Mg Tablet PO 12/02/24 08:59 10 mg QDAY AMILCAR Administration Atorvastatin Calcium 10 mg 11/01/24 22:15 11/05/24 20:35 Atorvastatin Calcium 10 Mg Tablet PO 12/01/24 22:14 10 mg QPM AMILCAR Administration Protocol Multivitamine With 0 ea 11/02/24 09:45 11/05/24 09:24 Ksk-Na-Ttutnpsc [One PO 12/02/24 09:44 1 tablet Daily For Men] DAILY AMILCAR Administration Trelegy Ellipta 0 ea 11/02/24 10:00 11/03/24 06:17 200mcg/62.5mcg/25mcg INH 12/02/24 09:59 1 inha Inhaler DAILY AMILCAR Administration Cyanocobalamin 1,000 mcg 11/02/24 09:00 11/05/24 09:19 Cyanocobalamin 500 Mcg Tablet PO 12/02/24 08:59 1,000 mcg QDAY AMILCAR Administration Doxycycline Hyclate 100 mg 11/03/24 21:00 11/05/24 20:35 Doxycycline 100 Mg Tablet PO 11/10/24 20:59 100 mg BID AMILCAR Administration Protocol Furosemide 20 mg 11/02/24 09:45 11/05/24 09:05 Furosemide Inj 10 Mg/Ml Vial 2 Ml IVP 12/02/24 09:44 20 mg QDAY AMILCAR Administration Guaifenesin 100 mg 11/02/24 09:37 Guaifenesin Syrup 200 Mg/10 Ml Udc PO 12/02/24 09:36 QID PRN COUGH Protocol Heparin Sodium (Porcine) 5,000 unit 11/05/24 22:00 11/06/24 05:31 Heparin Sod Inj 5000 Unit/Ml Vial SC 11/19/24 21:59 5,000 unit Q8HR AMILCAR Administration Ceftriaxone Sodium/Dextrose 1 gm in 50 mls @ 100 mls/hr 11/02/24 09:00 11/05/24 09:04 Rocephin/D5w 1gm Iv Premix IV 11/09/24 08:59 100 mls/hr DAILY AMILCAR Administration Methylprednisolone Sodium Succinate 40 mg 11/02/24 09:00 11/05/24 20:36 Methylprednisolone Sod Succ 40 Mg Vial IVP 11/09/24 08:59 40 mg Q12HR AMILCAR Administration Pantoprazole Sodium 40 mg 11/04/24 09:00 11/05/24 09:14 Pantoprazole 40 Mg Tablet PO 12/04/24 08:59 40 mg QDAY AMILCAR Administration Protocol Sodium Chloride 3 ml 11/01/24 15:56 11/01/24 16:04 Sodium Chloride Rt Lindy 0.9% 3 Ml Nebu INH 12/01/24 15:55 3 ml PRN PRN Administration SOLN Tamsulosin HCl 0.4 mg 11/02/24 21:00 11/05/24 20:36 Tamsulosin Hcl 0.4 Mg Capsule PO 12/02/24 20:59 0.4 mg HS AMILCAR Administration Vitamin D 1,000 iu 11/02/24 09:00 11/05/24 09:14 Cholecalciferol (Vitamin D3) 1,000 Iu Tablet PO 12/02/24 08:59 1,000 iu DAILY AMILCAR Administration Plan Patient is a 74-year-old male with chronic hypoxic respiratory failure on 3 L home O2, COPD, ?IPF, former smoker, history of CVA with residual LLE weakness, HTN, HLD, remote history of seizures on Keppra, CKD stage IIIa, BPH and history of B-cell lymphocytosis who was admitted for acute hypoxic respiratory failure in the setting of COPD exacerbation. Patient presented with cough and SOB, desaturated to 70% while in ED. He was started on IV antibiotics, steroids, BiPAP. #Acute on chronic hypoxic respiratory failure, likely secondary to #Acute COPD exacerbation #Superimposed pneumonia #?IPF #Leukocytosis Patient typically uses 3 L home O2. Initially required BiPAP, however has been weaned down to high flow nasal cannula. Current settings 24 L at 60% FiO2. SaO2 goal 88-92%. We will allow for permissible hypoxia while patient eats. Patient can be placed on BiPAP overnight if he desaturates, and does not respond to increase FiO2/flow from high flow nasal cannula Leukocytosis likely reactive to steroids Increased Solu-Medrol to 60 mg every 12 hours ; antibiotics Rocephin & doxycycline; scheduled DuoNebs; Protonix for GI prophylaxis Incentive spirometer Blood cultures negative at [address] (September 2023) concerning for COPD, pulmonary fibrosis, pulmonary artery hypertension and descending thoracic aorta aneurysm #Microcytic anemia #H/o B-cell lymphocytosis Hgb 12.3, MCV 77 Possible QUITA vs Anemia secondary to kidney disease vs underlying malignancy Patient completed outpatient colonoscopy in 2020 Can consider starting iron supplementation on discharge #CKD stage IIIa #Hypernatremia, mild, improving #Hyperkalemia, improved Creatinine 1.2, sodium 145, potassium 3.8 #HTN BP has been stable Continue home amlodipine, IV Lasix #HLD #History of CVA Continue statin Last lipid panel in August 2024 #History of seizures Keppra discontinued, as patient no longer takes it #BPH Continue Flomax Dispo: Telemetry for acute hypoxic respiratory failure; continue IV antibiotics; continue noninvasive ventilation until patient can be safely weaned to home O2; continue incentive spirometry GI PPx: Protonix DVT PPx: Heparin Diet: Cardiac CODE STATUS: Full code Patient seen and care discussed with my attending Dr. Bautista. Josie pgy2 Attending Provider Attestation/Addendum Patient seen and examined with resident physician Dr. Galindo. Note reviewed, agree with findings and recommendations. Patient presented with significant shortness of breath and fluid overload. patient currently seen in telemetry. On high flow oxygen 15l/min. Will start decreasing the oxygenation requirement. I will be out of town. Dr. Braxton will be covering for me until Friday.
[2024-11-06] MEDS: CYANOCOBALAMIN 500 MCG 1000 MCG PO (09:31)
[2024-11-06] MEDS: FUROSEMIDE INJ 10 MG/ML VIAL 2 ML 20 MG IVP (09:32)
[2024-11-06] MEDS: PANTOPRAZOLE 40 MG TABLET PO (09:32)
[2024-11-06] MEDS: amLODIPine BESYLATE 5 MG TABLET 10 MG PO (09:32)
[2024-11-06] MEDS: CHOLECALCIFEROL (Vitamin D3) 1,000 IU TABLET 1000 IU PO (09:32)
[2024-11-06] MEDS: DOXYCYCLINE 100 MG TABLET PO ×2 (09:32→20:47)
[2024-11-06] MEDS: [UNRECOGNIZED DRUG - OTHER] PO (09:34)
[2024-11-06] MEDS: cefTRIAXone/D5w 1gm IV premix 1 GM/50 ML BAG IV (09:34)
[2024-11-06] MEDS: TRELEGY ELLIPTA INH (10:59)
[2024-11-06] MEDS: ATORVASTATIN CALCIUM 10 MG TABLET PO (20:48)
[2024-11-06] MEDS: TAMSULOSIN HCL 0.4 MG CAPSULE PO (20:48)
[2024-11-07] VITALS (15 sets, daily range): BP systolic 122–160; BP diastolic 80–92; PULSE 84–115; RESP 17–34; TEMP 36.1–36.7; O2SAT 86–100; BMI 32.1
[2024-11-07] MEDS: ALBUTEROL/IPRATROPIUM (Duoneb) RT SOL 3 ML NEBU INH ×6 (03:15→22:42)
[2024-11-07] MEDS: HEPARIN SOD INJ 5000 UNIT/ML VIAL SC ×3 (05:26→21:31)
[2024-11-07] MEDS: TRELEGY ELLIPTA INH (06:16)
[2024-11-07 06:18] LABS: Basophils % (Auto) 0 % (0-2.5); Eosinophils % (Auto) 0 % (0-10); Hematocrit 38.8 % (41.0-53.0); Hemoglobin 12.2 g/dL (13.5-16.0); Immature Granulocytes % (Auto) 1 % (0-0); Lymphocytes # (Auto) 2.5 Thou/mm3 (1.0-4.8); Lymphocytes % (Auto) 25 % (10-50); Mean Corpuscular HGB Conc 31.4 g/dl (31.0-37.0); Mean Corpuscular Hemoglobin 23.6 pg (25.0-35.0); Mean Corpuscular Volume 75 fL (80-100); Monocytes # (Auto) 0.1 Thou/mm3 (0.0-0.8); Monocytes % (Auto) 1 % (0-12); Neutrophils # (Auto) 7.5 Thou/mm3 (1.8-7.7); Neutrophils % (Auto) 73 % (37-80); Nucleated Red Blood Cell % 0 /100 WBC (0); Platelet Count 238 Thou/mm3 (140-440); Red Blood Count 5.17 Miln/mm3 (4.50-5.90); White Blood Count 10.2 Thou/mm3 (3.8-10.6)
[2024-11-07 07:18] LABS: Anion Gap 10 (7-16); BUN/Creatinine Ratio 22 Ratio (12-20); Blood Urea Nitrogen 24 mg/dL (9-23); Calcium 8.6 mg/dL (8.3-10.6); Carbon Dioxide 27.4 mMol/L (20.0-31.0); Chloride 106 mMol/L (98-107); Creatinine (Component) 1.1 mg/dL (0.6-1.3); Estimated Creatinine Clearance 76.9 mL/min (>60); Glucose 174 mg/dL (74-106); Osmolality,Calculated 292 (275-295); Sodium 143 mMol/L (136-145); eGFR > 60 See Note
--- NOTE | 2024-11-07 07:24 | ESPR_ITS ---
Documentation for date of: 11/07/24 Subjective Subjective Interval history: Examined at bedside. No acute overnight events. Continued on high flow NC, 55% FiO2, satting well. Reports feeling better today. Denies fever, chills, headaches, chest pain, sob, cough, GI or urinary symptoms. Afebrile, tachycardic at 101, BP 141/88, RR 24. CBC stable without leukocytosis. Renal function improved, CR 1.1, GLUCOSE 174, remainder of CMP relatively unchanged. Edema and RLE >LLE, bilateral lower extremity Doppler was negative for DVT. Exam Vital Signs Temp Pulse Resp BP Pulse Ox O2 Del Method O2 Flow Rate 98.1 F 98 21 H 160/89 H 98 High Flow Nasal Cannula 15 11/07/24 04:00 11/07/24 06:18 11/07/24 06:18 11/07/24 04:00 11/07/24 06:18 11/07/24 04:00 11/07/24 06:18 FiO2 60 11/07/24 06:18 Narrative Exam Gen: AAOx3, elderly male, asymptomatic, sitting at the side of bed, on high flow nasal cannula HEENT: NCAT, PERRLA, EOMI, MMM, no LAD CVS: normal S1, S2. RRR. No MRG Resp: Improvement in wheezing noted, minimal rhonchi bilateral basal sounds. Abd: soft, non-tender, non-distended. BS+ in all 4 quadrants MSK: Good ROM in BUE & BLE. 2+ lower extremity edema, slightly more on the right. Neuro: CN II-XII grossly intact. Strength 5/5 in BUE & BLE. Objective Labs 11/08/24 04:48 11/08/24 04:48 Labs: Laboratory Results - last 24 hr 11/07/24 05:29 WBC 10.2 RBC 5.17 Hgb 12.2 L Hct 38.8 L MCV 75 L MCH 23.6 L MCHC 31.4 RDW Std Deviation 51.0 H Plt Count 238 Neut % (Auto) 73 Lymph % (Auto) 25 [place] % (Auto) 1 Eos % (Auto) 0 Baso % (Auto) 0 Neut # (Auto) 7.5 Lymph # (Auto) 2.5 [place] # (Auto) 0.1 Eos # (Auto) 0.0 Baso # (Auto) 0.0 Immature Gran # (Auto) 0.10 H Absolute Nucleated RBC 0.00 Immature Gran % 1 H Nucleated RBC % 0 Sodium 143 Potassium 4.0 Chloride 106 Carbon Dioxide 27.4 Anion Gap 10 BUN 24 H Creatinine 1.1 Estim Creat Clear Calc 76.9 eGFR > 60 BUN/Creatinine Ratio 22 H Glucose 174 H Calculated Osmolality 292 Calcium 8.6 Quality Measures Quality Measures VTE prophylaxis Advance care planning discussed with:: patient Assessment & Plan Assessment Current Active Medications: Generic Name Dose Route Start Last Admin Trade Name Freq PRN Reason Stop Dose Admin Albuterol/Ipratropium 3 ml 11/02/24 07:00 11/07/24 06:15 Albuterol/Ipratropium (Duoneb) Rt Lindy 3 Ml Nebu INH 12/02/24 06:59 3 ml Q4HRRT AMILCAR Administration Amlodipine Besylate 10 mg 11/02/24 09:00 11/06/24 09:32 Amlodipine Besylate 5 Mg Tablet PO 12/02/24 08:59 10 mg QDAY AMILCAR Administration Atorvastatin Calcium 10 mg 11/01/24 22:15 11/06/24 20:48 Atorvastatin Calcium 10 Mg Tablet PO 12/01/24 22:14 10 mg QPM AMILCAR Administration Protocol Multivitamine With 0 ea 11/02/24 09:45 11/06/24 09:34 Ava-Af-Mculipcq [One PO 12/02/24 09:44 1 tablet Daily For Men] DAILY AMILCAR Administration Trelegy Ellipta 0 ea 11/02/24 10:00 11/07/24 06:16 200mcg/62.5mcg/25mcg INH 12/02/24 09:59 1 inha Inhaler DAILY AMILCAR Administration Cyanocobalamin 1,000 mcg 11/02/24 09:00 11/06/24 09:31 Cyanocobalamin 500 Mcg Tablet PO 12/02/24 08:59 1,000 mcg QDAY AMILCAR Administration Doxycycline Hyclate 100 mg 11/03/24 21:00 11/06/24 20:47 Doxycycline 100 Mg Tablet PO 11/10/24 20:59 100 mg BID AMILCAR Administration Protocol Furosemide 20 mg 11/02/24 09:45 11/06/24 09:32 Furosemide Inj 10 Mg/Ml Vial 2 Ml IVP 12/02/24 09:44 20 mg QDAY AMILCAR Administration Guaifenesin 100 mg 11/02/24 09:37 Guaifenesin Syrup 200 Mg/10 Ml Udc PO 12/02/24 09:36 QID PRN COUGH Protocol Heparin Sodium (Porcine) 5,000 unit 11/05/24 22:00 11/07/24 05:26 Heparin Sod Inj 5000 Unit/Ml Vial SC 11/19/24 21:59 5,000 unit Q8HR AMILCAR Administration Ceftriaxone Sodium/Dextrose 1 gm in 50 mls @ 100 mls/hr 11/02/24 09:00 11/06/24 09:34 Rocephin/D5w 1gm Iv Premix IV 11/09/24 08:59 100 mls/hr DAILY AMILCAR Administration Methylprednisolone Sodium Succinate 60 mg 11/06/24 09:00 11/06/24 20:47 Methylprednisolone Sod Succ 40 Mg Vial IVP 11/09/24 08:59 60 mg Q12HR AMILCAR Administration Pantoprazole Sodium 40 mg 11/04/24 09:00 11/06/24 09:32 Pantoprazole 40 Mg Tablet PO 12/04/24 08:59 40 mg QDAY AMILCAR Administration Protocol Sodium Chloride 3 ml 11/01/24 15:56 11/01/24 16:04 Sodium Chloride Rt Lindy 0.9% 3 Ml Nebu INH 12/01/24 15:55 3 ml PRN PRN Administration SOLN Tamsulosin HCl 0.4 mg 11/02/24 21:00 11/06/24 20:48 Tamsulosin Hcl 0.4 Mg Capsule PO 12/02/24 20:59 0.4 mg HS AMILCAR Administration Vitamin D 1,000 iu 11/02/24 09:00 11/06/24 09:32 Cholecalciferol (Vitamin D3) 1,000 Iu Tablet PO 12/02/24 08:59 1,000 iu DAILY AMILCAR Administration Plan Patient is a 74-year-old male with chronic hypoxic respiratory failure on 3 L home O2, COPD, ?IPF, former smoker, history of CVA with residual LLE weakness, HTN, HLD, remote history of seizures on Keppra, CKD stage IIIa, BPH and history of B-cell lymphocytosis who was admitted for acute hypoxic respiratory failure in the setting of COPD exacerbation. Patient presented with cough and SOB, desaturated to 70% while in ED. He was started on IV antibiotics, steroids, BiPAP. #Acute on chronic hypoxic respiratory failure, likely secondary to #Acute COPD exacerbation #Superimposed pneumonia #?IPF #Leukocytosis (resolved) Patient typically uses 3 L home O2. Initially required BiPAP, however has been weaned down to high flow nasal cannula. Current settings 24 L at 60% FiO2. SaO2 goal 88-92%. We will allow for permissible hypoxia while patient eats. Patient can be placed on BiPAP overnight if he desaturates, and does not respond to increase FiO2/flow from high flow nasal cannula Leukocytosis likely reactive to steroids Increased Solu-Medrol to 60 mg every 12 hours ; antibiotics CEFEPIME & d oxycycline; scheduled DuoNebs; Protonix for GI prophylaxis Incentive spirometer Blood cultures negative at [address] (September 2023) concerning for COPD, pulmonary fibrosis, pulmonary artery hypertension and descending thoracic aorta aneurysm Sinus tachycardia Recurrent PVC Continued on high flow at 55% oxygen, satting well. Tachycardic with HR 120, felt irregular on exam, EKG showed recurrent PVC, A-fib ruled out. Asymptomatic without chest pain. Bilateral extremity edema On LASIX 20 mg IV daily, good urine output, but has 2+ bilateral extremity edema, slightly worse on the right. Lower extremity Doppler ruled out DVT. Last echo from 09/2023 showed EF 55 to 60%. ? Ordered repeat echo to evaluate ejection fraction and right heart strain given persistent edema and pulmonary fibrosis seen on CXR, respectively. ? Continue LASIX 20 mg daily, monitor renal function. #Microcytic anemia #H/o B-cell lymphocytosis Hgb 12.3, MCV 77 Possible QUITA vs Anemia secondary to kidney disease vs underlying malignancy Patient completed outpatient colonoscopy in 2020 Can consider starting iron supplementation on discharge #CKD stage IIIa #Hypernatremia, mild, improving #Hyperkalemia, improved Creatinine 1.1, sodium 143, potassium 4.0 ? Renally dose meds, avoid overdiuresis and NEPHROTOXINS ? Daily CMP #HTN BP has been stable Continue home amlodipine, IV Lasix, had 1.2 L urine output overnight. BP 141/80, HR 101 today 11/07 ? Will consider additional ANTIHYPERTENSIVE if BP remains high #HLD #History of CVA Continue statin Last lipid panel in August 2024 was relatively normal. #History of seizures Keppra discontinued, as patient no longer takes it #BPH Continue Flomax Dispo: Telemetry for acute hypoxic respiratory failure; continue IV antibiotics; continue noninvasive ventilation until patient can be safely weaned to home O2; continue incentive spirometry GI PPx: Protonix DVT PPx: Heparin Diet: Cardiac CODE STATUS: Full code Case was discussed with attending physician and senior resident. Joann De La Paz DO PGYI Attending Provider Attestation/Addendum Dian Johnston DO, attest that I was physically present for the [place] portions of the service and evaluated the patient with the resident and I reviewed and discussed the case with the resident and agree with the resident's findings and plans of care as documented above Patient seen and evaluated this AM. Patient is very short of breath on exertion. He remains on HFNC with 15L/min and FIO2 of 55%. Encourage use of incentive spirometer. Will order echocardiogram as patient was noted to have pulmonary artery hypertension on CT and CXR. RLE >> LLE. Will order an US venous doppler to rule out DVT. Continue with steroids and breathing treatments. Will switch rocephin to cefepime for pseudomonal coverage
[2024-11-07] MEDS: FUROSEMIDE INJ 10 MG/ML VIAL 2 ML 20 MG IVP (08:09)
[2024-11-07] MEDS: CYANOCOBALAMIN 500 MCG 1000 MCG PO (08:11)
[2024-11-07] MEDS: PANTOPRAZOLE 40 MG TABLET PO (08:11)
[2024-11-07] MEDS: amLODIPine BESYLATE 5 MG TABLET 10 MG PO (08:11)
[2024-11-07] MEDS: DOXYCYCLINE 100 MG TABLET PO ×2 (08:11→21:25)
[2024-11-07] MEDS: CHOLECALCIFEROL (Vitamin D3) 1,000 IU TABLET 1000 IU PO (08:11)
[2024-11-07] MEDS: cefTRIAXone/D5w 1gm IV premix 1 GM/50 ML BAG IV (08:11)
[2024-11-07] MEDS: [UNRECOGNIZED DRUG - OTHER] PO (08:21)
--- NOTE | 2024-11-07 08:58 | EKG_ITS ---
[facility] Test Date: 2024-11-07 Pat Name: GUS MCCARTHY [facility] Gender[facility] Male Laser Beam Cutter: DILSHAD : 1950 Requested By: Joann De La Paz Order Number: [id number] Reading MD: Joann De La Paz Measurements Intervals [place] Rate: 87 P: 29 SC: 181 QRS: 52 QRSD: 97 T: -22 QT: 383 QTc: 461 Interpretive Statements SINUS RHYTHM WITH FREQUENT SUPRAVENTRICULAR PREMATURE COMPLEXES INFERIOR MYOCARDIAL INFARCTION , OF INDETERMINATE AGE MODERATE T-WAVE ABNORMALITY, CONSIDER ANTERIOR ISCHEMIA Compared to ECG 09/10/2023 13:36:34 T-wave abnormality now present Possible ischemia now present Atrial flutter no longer present ST (T wave) deviation no longer present Myocardial infarct finding still present /store/S0/[id number]/ecg/[id number].pdf
--- NOTE | 2024-11-07 09:51 | XR_ITS ---
Examination: Venous duplex lower extremity sonogram, bilateral. Date and time of exam: November 07, 2024 1057 hrs. Indications: Hospital immobilization this week Technique: Multiple sonographic images of the deep venous system have been obtained. B-mode/2-D grayscale imaging of vascular structures and Doppler spectral analysis (waveforms) and color performed Both legs are examined. Findings: Deep venous systems do not demonstrate abnormal echogenicity. All visualized deep veins exhibit compressibility. All visualized deep veins exhibit augmentation. Impression: Negative for deep vein thrombosis
[2024-11-07] MEDS: CEFEPIME INJ 2 GM in SODIUM CHLORIDE 0.9% (Popper) 50 ML IV ×2 (11:05→21:26)
[2024-11-07] MEDS: TAMSULOSIN HCL 0.4 MG CAPSULE PO (21:25)
[2024-11-07] MEDS: ATORVASTATIN CALCIUM 10 MG TABLET PO (21:25)
[2024-11-08] VITALS (12 sets, daily range): BP systolic 126–142; BP diastolic 72–83; PULSE 92–124; RESP 12–97; TEMP 36–36.3; O2SAT 92–100; BMI 31.6
[2024-11-08] MEDS: ALBUTEROL/IPRATROPIUM (Duoneb) RT SOL 3 ML NEBU INH ×2 (02:31→07:17)
[2024-11-08] MEDS: HEPARIN SOD INJ 5000 UNIT/ML VIAL SC ×2 (05:13→13:42)
[2024-11-08] MEDS: CEFEPIME INJ 2 GM in SODIUM CHLORIDE 0.9% (Popper) 50 ML IV ×3 (05:14→21:03)
[2024-11-08 06:02] LABS: Basophils % (Auto) 0 % (0-2.5); Eosinophils % (Auto) 0 % (0-10); Hematocrit 39.9 % (41.0-53.0); Hemoglobin 12.7 g/dL (13.5-16.0); Immature Granulocytes % (Auto) 1 % (0-0); Lymphocytes # (Auto) 2.7 Thou/mm3 (1.0-4.8); Lymphocytes % (Auto) 26 % (10-50); Mean Corpuscular HGB Conc 31.8 g/dl (31.0-37.0); Mean Corpuscular Hemoglobin 23.8 pg (25.0-35.0); Mean Corpuscular Volume 75 fL (80-100); Monocytes # (Auto) 0.1 Thou/mm3 (0.0-0.8); Monocytes % (Auto) 1 % (0-12); Neutrophils # (Auto) 7.7 Thou/mm3 (1.8-7.7); Neutrophils % (Auto) 72 % (37-80); Nucleated Red Blood Cell % 0 /100 WBC (0); Platelet Count 190 Thou/mm3 (140-440); Red Blood Count 5.34 Miln/mm3 (4.50-5.90); White Blood Count 10.6 Thou/mm3 (3.8-10.6)
[2024-11-08 06:48] LABS: Anion Gap 12 (7-16); BUN/Creatinine Ratio 20 Ratio (12-20); Blood Urea Nitrogen 22 mg/dL (9-23); Carbon Dioxide 25.7 mMol/L (20.0-31.0); Chloride 101 mMol/L (98-107); Creatinine (Component) 1.1 mg/dL (0.6-1.3); Estimated Creatinine Clearance 76.3 mL/min (>60); Glucose 190 mg/dL (74-106); Magnesium 2.2 mg/dL (1.6-2.6); Osmolality,Calculated 285 (275-295); Potassium 3.6 mMol/L (3.4-5.1); Sodium 139 mMol/L (136-145); eGFR > 60 See Note
[2024-11-08] MEDS: TRELEGY ELLIPTA INH (07:18)
[2024-11-08] MEDS: [UNRECOGNIZED DRUG - OTHER] PO (08:15)
[2024-11-08] MEDS: amLODIPine BESYLATE 5 MG TABLET 10 MG PO (08:16)
[2024-11-08] MEDS: FUROSEMIDE INJ 10 MG/ML VIAL 2 ML 20 MG IVP (08:16)
[2024-11-08] MEDS: CHOLECALCIFEROL (Vitamin D3) 1,000 IU TABLET 1000 IU PO (08:16)
[2024-11-08] MEDS: DOXYCYCLINE 100 MG TABLET PO ×2 (08:16→20:32)
[2024-11-08] MEDS: PANTOPRAZOLE 40 MG TABLET PO (08:16)
[2024-11-08] MEDS: CYANOCOBALAMIN 500 MCG 1000 MCG PO (08:16)
--- NOTE | 2024-11-08 09:04 | ESPR_ITS ---
<Statement entered by Ramesh Cloud MD - 11/08/24 13:39> I discussed with and supervised the legal summer intern physician involved in the care of this patient. Patient assessment and plan was discussed with entire medicine team, including my attending. I agree with the assessment and plan as documented by legal summer intern doctor. Patient care was discussed with my attending physician Dr. Fox Cloud, PGY-2 Documentation for date of: 11/08/24 Subjective Subjective Interval history: Mr. 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 is the informant as patient currently is on BiPAP and unable to give me too much information. He denies any fever or chills although complaining of significant weakness. In the emergency department patient was noted to be hypoxic and was placed on BiPAP.WBC 11.9, hemoglobin 12.8, platelets 181. ABG was not done. Sodium 146, potassium 4, BUN 25, creatinine 1.5, GFR 49, lactic acid 3.9, calcium 8.6, LFTs normal, troponin less than 0.02, albumin 4.2, Pro-Mikal 0.36. So far RSV, influenza, bedside COVID are negative. Chest x-ray showed bilateral pneumonia at the lung bases and pulmonary artery hypertension. Patient was diagnosed with COPD exacerbation, pneumonia and was started on Solu- Medrol, IV antibiotics and admitted to telemetry. Home medications: Amlodipine 10 Mg daily, ufdysfjpho-awppsvasdwplfm-wfxrbqaqde 1 puff inhalation daily, vitamin D3 tab daily, vitamin B 12 1000 mcg daily, furosemide 20 Mg daily, Keppra, tamsulosin 0.4 Mg daily at night, simvastatin 20 Mg daily at night 11/02/2024: Patient seen and examined at bedside this morning. No acute overnight events. Patient sleeping but easily arousable. He complains of cough/sore throat and asking for cough syrup. He is also requesting for BiPAP to be taken off; will attempt to transition to HFNC if patient tolerates. Vitals, labs reviewed. Mildly tachycardic and tachypneic. Sats in high 90s, will set goal for 88 to 92%. WBC improved, hemoglobin stable with microcytic anemia noted. CHEM panel pending. Lactic acidosis resolved. Blood cultures pending at this time. Continue breathing treatments, oxygen, steroids for hypoxic respiratory failure; antibiotics for superimposed pneumonia. 11/03/2024: Patient seen and examined at bedside this morning. No acute overnight events. Patient continues to desat when taken off BiPAP, however has not eaten in several days. He is quite upset, asking for food. Will work with nursing and respiratory therapy to transition patient to NC with permissible hypoxia while he eats. Patient will be placed back on BiPAP 15 mins after finishing meal. Vitals significant for hypoxia & tachypnea from underlying COPD/PNA. CBC significant for microcytic anemia. Chem panel significant for hyperkalemia and iron panel consistent with QUITA. Kayexalate ordered. Consider starting iron supplementation on discharge. Blood cultures are negative at 24hr. Continue antibiotics. CT from September 2023 reviewed, with fibrosis and significant artifact from patient movement noted. 11/04/2024: Patient seen and examined at bedside this morning. No acute overnight events. He remained on high flow nasal cannula through the night with frequent monitoring and has been oxygenating fine. Vitals significant for tachycardia/tachypnea; saturating at 90% on 24 L at 60% FiO2. IDANIA index score 5.36 points, indicating low risk of intubation. Encouraged patient to continue with incentive spirometer. Labs reviewed. Leukocytosis noted, likely related to steroids. Patient continues to have a microcytic anemia. CHEM panel showing improvement in sodium and potassium, 145 and 3.8 respectively. Mild elevation in AST. Blood culture showing no growth after 48 hours. 11/05/2024: Patient seen at the bedside, currently comfortable, unable to wean off high flow, patient currently stays on 25 L/min high flow nasal cannula at, 60% FiO2, saturating well. Continue to use incentive spirometry. Urine output 1800 mL, -365 mL net negative over last 24 hours. Sodium 144, potassium 3.7, BUN 31, creatinine 1.2. Plan to discharge once patient is able to saturate well at 4-5 L oxygen. 11/06/2024 patient seen at the bedside, sitting at the side of bed ready to eat breakfast. Reported no active complaints. Patient is saturating 95% on high flow nasal cannula 25 L FiO2 60%. Patient continued to saturate well on decreasing oxygen to 15 L/min 60% FiO2, target SPO2 88% and above, can continue to wean down oxygen as tolerated. Patient can be discharged home once able to wean off oxygen to 4 to 5 L nasal cannula. 11/07/2024: Examined at bedside. No acute overnight events. Continued on high flow NC, 55% FiO2, satting well. Reports feeling better today. Denies fever, chills, headaches, chest pain, sob, cough, GI or urinary symptoms. Afebrile, tachycardic at 101, BP 141/88, RR 24. CBC stable without leukocytosis. Renal function improved, CR 1.1, GLUCOSE 174, remainder of CMP relatively unchanged. Edema and RLE >LLE (chronic, per patient), bilateral lower extremity Doppler was negative for DVT. 11/08/2024: No acute overnight events. Continues to require HFNC, satting 87-93%, we added BiPAP HS. Denies fever, chills, headaches, chest pain, worsening sob, cough, GI or urinary symptoms. EZEQUIEL 135/83, HR 97. CBC and CHEM panel without significant change. Will continue with ANTIBIOTICS and oxygen. Changed DUNEBs to ALEVALBUTEROL Q8HRR since he is tachycardic, minimal wheezing. Ordered Cocci IgM/IgG. Exam Vital Signs Temp Pulse Resp BP Pulse Ox O2 Del Method O2 Flow Rate 96.8 F 97 12 135/83 H 97 High Flow Nasal Cannula 15 11/08/24 08:00 11/08/24 08:16 11/08/24 08:00 11/08/24 08:16 11/08/24 08:00 11/08/24 08:00 11/08/24 08:00 FiO2 60 11/08/24 08:00 Narrative Exam Gen: AAOx3, elderly male, asymptomatic, sitting at the side of bed, on high flow nasal cannula HEENT: NCAT, PERRLA, EOMI, MMM, no LAD CVS: normal S1, S2. tachycardic, regular rhythm, some PVCs. No MRG Resp: Improvement in wheezing noted, improving coarse breath sounds bilaterally. Abd: soft, non-tender, non-distended. BS+ in all 4 quadrants MSK: Good ROM in BUE & BLE. trace LLE edema, 2+ RLE edema (chronic). Neuro: CN II-XII grossly intact. Strength 5/5 in BUE & BLE. Objective Labs 11/09/24 05:04 11/09/24 05:04 Labs: Laboratory Results - last 24 hr 11/08/24 04:48 WBC 10.6 RBC 5.34 Hgb 12.7 L Hct 39.9 L MCV 75 L MCH 23.8 L MCHC 31.8 RDW Std Deviation 51.0 H Plt Count 190 D Neut % (Auto) 72 Lymph % (Auto) 26 [place] % (Auto) 1 Eos % (Auto) 0 Baso % (Auto) 0 Neut # (Auto) 7.7 Lymph # (Auto) 2.7 [place] # (Auto) 0.1 Eos # (Auto) 0.0 Baso # (Auto) 0.0 Immature Gran # (Auto) 0.10 H Absolute Nucleated RBC 0.00 Immature Gran % 1 H Nucleated RBC % 0 Sodium 139 Potassium 3.6 Chloride 101 Carbon Dioxide 25.7 Anion Gap 12 BUN 22 Creatinine 1.1 Estim Creat Clear Calc 76.3 eGFR > 60 BUN/Creatinine Ratio 20 Glucose 190 H Calculated Osmolality 285 Calcium 9.0 Magnesium 2.2 Quality Measures Quality Measures VTE prophylaxis Advance care planning discussed with:: patient Assessment & Plan Assessment Current Active Medications: Generic Name Dose Route Start Last Admin Trade Name Freq PRN Reason Stop Dose Admin Albuterol/Ipratropium 3 ml 11/02/24 07:00 11/08/24 07:17 Albuterol/Ipratropium (Duoneb) Rt Lindy 3 Ml Nebu INH 12/02/24 06:59 3 ml Q4HRRT AMILCAR Administration Amlodipine Besylate 10 mg 11/02/24 09:00 11/08/24 08:16 Amlodipine Besylate 5 Mg Tablet PO 12/02/24 08:59 10 mg QDAY AMILCAR Administration Atorvastatin Calcium 10 mg 11/01/24 22:15 11/07/24 21:25 Atorvastatin Calcium 10 Mg Tablet PO 12/01/24 22:14 10 mg QPM AMILCAR Administration Protocol Multivitamine With 0 ea 11/02/24 09:45 11/08/24 08:15 Nwe-Qu-Hpzazogy [One PO 12/02/24 09:44 1 tablet Daily For Men] DAILY AMILCAR Administration Trelegy Ellipta 0 ea 11/02/24 10:00 11/08/24 07:18 200mcg/62.5mcg/25mcg INH 12/02/24 09:59 1 inha Inhaler DAILY AMILCAR Administration Cyanocobalamin 1,000 mcg 11/02/24 09:00 11/08/24 08:16 Cyanocobalamin 500 Mcg Tablet PO 12/02/24 08:59 1,000 mcg QDAY AMILCAR Administration Doxycycline Hyclate 100 mg 11/03/24 21:00 11/08/24 08:16 Doxycycline 100 Mg Tablet PO 11/10/24 20:59 100 mg BID AMILCAR Administration Protocol Furosemide 20 mg 11/02/24 09:45 11/08/24 08:16 Furosemide Inj 10 Mg/Ml Vial 2 Ml IVP 12/02/24 09:44 20 mg QDAY AMILCAR Administration Guaifenesin 100 mg 11/02/24 09:37 Guaifenesin Syrup 200 Mg/10 Ml Udc PO 12/02/24 09:36 QID PRN COUGH Protocol Heparin Sodium (Porcine) 5,000 unit 11/05/24 22:00 11/08/24 05:13 Heparin Sod Inj 5000 Unit/Ml Vial SC 11/19/24 21:59 5,000 unit Q8HR AMILCAR Administration Cefepime HCl 2 gm/ Sodium 50 mls @ 100 mls/hr 11/07/24 10:28 11/08/24 05:49 Chloride IV 11/14/24 10:27 Infused Q8HR AMILCAR Infusion Methylprednisolone Sodium Succinate 60 mg 11/06/24 09:00 11/08/24 08:15 Methylprednisolone Sod Succ 40 Mg Vial IVP 11/09/24 08:59 60 mg Q12HR AMILCAR Administration Pantoprazole Sodium 40 mg 11/04/24 09:00 11/08/24 08:16 Pantoprazole 40 Mg Tablet PO 12/04/24 08:59 40 mg QDAY AMILCAR Administration Protocol Sodium Chloride 3 ml 11/01/24 15:56 11/01/24 16:04 Sodium Chloride Rt Lindy 0.9% 3 Ml Nebu INH 12/01/24 15:55 3 ml PRN PRN Administration SOLN Tamsulosin HCl 0.4 mg 11/02/24 21:00 11/07/24 21:25 Tamsulosin Hcl 0.4 Mg Capsule PO 12/02/24 20:59 0.4 mg HS AMILCAR Administration Vitamin D 1,000 iu 11/02/24 09:00 11/08/24 08:16 Cholecalciferol (Vitamin D3) 1,000 Iu Tablet PO 12/02/24 08:59 1,000 iu DAILY AMILCAR Administration Plan Patient is a 74-year-old male with chronic hypoxic respiratory failure on 3 L home O2, COPD, ?IPF, former smoker, history of CVA with residual LLE weakness, HTN, HLD, remote history of seizures on Keppra, CKD stage IIIa, BPH and history of B-cell lymphocytosis who was admitted for acute hypoxic respiratory failure in the setting of COPD exacerbation. Patient presented with cough and SOB, desaturated to 70% while in ED. He was started on IV antibiotics, steroids, BiPAP. Acute on chronic hypoxic respiratory failure, likely secondary to Acute COPD exacerbation Superimposed pneumonia ?IPF Leukocytosis (resolved) Patient typically uses 3 L home O2. Initially required BiPAP, however has been weaned down to high flow nasal cannula. Current settings 24 L at 60% FiO2. SaO2 goal 88-92%. We will allow for permissible hypoxia while patient eats. Patient can be placed on BiPAP overnight if he desaturates, and does not respond to increase FiO2/flow from high flow nasal cannula Leukocytosis likely reactive to steroids Increased Solu-Medrol to 60 mg every 12 hours Continued on ANTIBIOTICS, previously on ROCEPHIN. scheduled DuoNebs; Protonix for GI prophylaxis Incentive spirometer Blood cultures negative at [address] (September 2023) concerning for COPD, pulmonary fibrosis, pulmonary artery hypertension and descending thoracic aorta aneurysm Still requiring HVNC, will add BiPAP HS. ? Continue CEFEPIME (11/07 to present) ? Continue DOXYCYCLINE (11/03 to present) ? Changed DUNEBs to LEVALBUTEROl Q8HRRT 2/2 tachycardia. ? Decreased SOLUMEDEROL to 40 mg BID ? Ordered Cocci titer. Sinus tachycardia Recurrent PVC Continued on high flow at 55% oxygen, satting well. Tachycardic with HR 120, felt irregular on exam, EKG showed recurrent PVC, A-fib ruled out. Asymptomatic without chest pain. Bilateral extremity edema On LASIX 20 mg IV daily, good urine output, but has 2+ bilateral extremity edema, slightly worse on the right. Lower extremity Doppler ruled out DVT. Last echo from 09/2023 showed EF 55 to 60%. ? Ordered repeat echo to evaluate ejection fraction and right heart strain given persistent edema and pulmonary fibrosis seen on CXR, respectively. ? Continue LASIX 20 mg daily, monitor renal function. Microcytic anemia H/o B-cell lymphocytosis Hgb 12.3, MCV 77 Possible QUITA vs Anemia secondary to kidney disease vs underlying malignancy Patient completed outpatient colonoscopy in 2020 Can consider starting iron supplementation on discharge CKD stage IIIa Hypernatremia, mild, improving Hyperkalemia, improved Creatinine 1.1, sodium 143, potassium 4.0 ? Renally dose meds, avoid overdiuresis and NEPHROTOXINS ? Daily CMP HTN BP has been stable Continue home amlodipine, IV Lasix, had 1.2 L urine output overnight. BP 141/80, HR 101 today 11/07 ? Will consider additional ANTIHYPERTENSIVE if BP remains high HLD History of CVA Continue statin Last lipid panel in August 2024 was relatively normal. History of seizures Keppra discontinued, as patient no longer takes it BPH Continue Flomax Dispo: Telemetry for acute hypoxic respiratory failure; continue IV antibiotics; continue noninvasive ventilation until patient can be safely weaned to home O2; continue incentive spirometry GI PPx: Protonix DVT PPx: Heparin Diet: Cardiac CODE STATUS: Full code Case was discussed with attending physician and senior resident. Joann De La Paz DO PGYI Attending Provider Attestation/Addendum I, Dian Braxton DO, attest that I was physically present for the [place] portions of the service and evaluated the patient with the resident and I reviewed and discussed the case with the resident and agree with the resident's findings and plans of care as documented above Patient seen and evaluated this AM. He remains on HFNC requiring 15L/min and FIO2 of 60%. Patient states he gets dyspneic on exertion. Will try BiPap at night. Pending echo read. No wheezing noted on exam. Will decrease steroids to 40mg IV BID. Continue with cefepime for pseudomonal coverage. Patient is otherwise afebrile. Continue to wean O2 as tolerated
--- NOTE | 2024-11-08 09:50 | ECHO_ITS ---
Transthoracic Echo Report Ht (in): 72 Wt (lb): 236 Exam Location: Echo Lab Status: Inpatient Retail Field Representative: Lorie Hernandez Indications: Procedure Performed: BP: 122 / 82 HR: 102 Technical Quality: Adequate MEASUREMENTS (Male / Female) Normal Values 2D ECHO LV Diastolic Diameter PLAX 4.1 cm 4.2 - 5.9 / 3.9 - 5.3 cm LV Systolic Diameter PLAX 2.9 cm IVS Diastolic Thickness 1.8 cm 0.6 - 1.0 / 0.6 - 0.9 cm LVPW Diastolic Thickness 1.7 cm 0.6 - 1.0 / 0.6 - 0.9 cm LV Relative Wall Thickness 0.9 LVOT Diameter 2.1 cm LA Volume Index 47.7 cm?/m? 16 - 28 cm?/m? Ascending Aorta Diameter 4.1 cm DOPPLER AV Peak Velocity 213.3 cm/s AV Peak Gradient 18.2 mmHg LVOT Peak Velocity 131.0 cm/s LVOT Peak Gradient 6.9 mmHg AV Area Cont Eq pk 2.1 cm? TR Peak Velocity 361.3 cm/s TR Peak Gradient 52.2 mmHg PV Peak Velocity 116.7 cm/s PV Peak Gradient 5.4 mmHg FINDINGS Left Ventricle The left ventricular cavity size and systolic function are normal with no regional wall motion abnormalities present. The left ventricular wall thickness is moderately increased. The left ventricular ejection fraction is normal, estimated at 55-60%. Right Ventricle The right ventricle is normal in size and systolic function. The estimated right ventricular systolic pressure, 52 mmHg. RAP 15mmHg. Left Atrium The left atrium is moderately dilated. Right Atrium The right atrium is moderately dilated. Atrial Septum The interatrial septum appears normal with no evidence of a shunt. Aorta The sinsus of valsalve and ascending aorta are dilated. Mitral Valve The mitral valve is normal by two-dimensional, color flow and Doppler interrogation. There is no significant mitral valve regurgitation, stenosis or prolapse. Aortic Valve The aortic valve is trileaflet and normal by two-dimensional, color flow and Doppler interrogation. There is no significant aortic valve regurgitation. Tricuspid Valve The tricuspid valve is normal by two-dimensional, color flow and Doppler interrogation. There is mild tricuspid regurgitation. Pulmonic Valve The pulmonic valve is not well visualized. There is no significant pulmonic valve regurgitation. Vessels The pulmonary artery appears normal. The inferior vena cava is dilated. Pericardium There is a trivial pericardial effusion. CONCLUSIONS Indications: CHF, PHT, R/O Right Heart Strain Aortic root appears to be mildly dilated measures 4 cm. Aortic valve leaflets are thin and show normal opening. Mitral valve shows thickening no significant mitral regurgitation.. Normal-sized left ventricle with severe concentric LVH wall thickness 18 mm with normal wall motion. Left ventricle ejection fraction 60%. Mild to moderate tricuspid regurgitation with moderate to severe pulmonary hypertension PA pressure estimated to be 65 mmHg TR velocity is almost 4 m/s.. Mild enlargement of both atria aorta. Dilated IVC. Trivial pericardial effusion. Prachi Concepcion (Electronically Signed) Final Date: 08 November 2024 17:17
[2024-11-08 13:18] LABS: Cocci Serology, IgM Negative (Negative)
[2024-11-08] MEDS: LEVALBUTEROL RT 1.25 MG/0.5 ML NEBU INH ×2 (14:38→23:45)
[2024-11-08] MEDS: SODIUM CHLORIDE RT SOL 0.9% 3 ML NEBU INH (14:38)
--- NOTE | 2024-11-08 14:38 | PC.SS ---
Rounding Note: Patient remains on high flow nasal cannula. Patient receiving IV antibiotics.
[2024-11-08] MEDS: TAMSULOSIN HCL 0.4 MG CAPSULE PO (20:32)
[2024-11-08] MEDS: ATORVASTATIN CALCIUM 10 MG TABLET PO (20:32)
[2024-11-09] VITALS (15 sets, daily range): BP systolic 127–163; BP diastolic 66–91; PULSE 66–103; RESP 14–98; TEMP 36.1–36.6; O2SAT 87–99; BMI 32.1
[2024-11-09] MEDS: HEPARIN SOD INJ 5000 UNIT/ML VIAL SC ×3 (05:17→20:50)
[2024-11-09] MEDS: CEFEPIME INJ 2 GM in SODIUM CHLORIDE 0.9% (Popper) 50 ML IV ×3 (05:18→20:50)
[2024-11-09 05:36] LABS: Basophils % (Auto) 0 % (0-2.5); Eosinophils % (Auto) 0 % (0-10); Hematocrit 37.3 % (41.0-53.0); Hemoglobin 11.5 g/dL (13.5-16.0); Immature Granulocytes % (Auto) 1 % (0-0); Immature Granulocytes Auto 0.09 Thou/mm3 (0.00-0.00); Lymphocytes # (Auto) 2.2 Thou/mm3 (1.0-4.8); Lymphocytes % (Auto) 23 % (10-50); Mean Corpuscular HGB Conc 30.8 g/dl (31.0-37.0); Mean Corpuscular Hemoglobin 23.1 pg (25.0-35.0); Mean Corpuscular Volume 75 fL (80-100); Monocytes # (Auto) 0.1 Thou/mm3 (0.0-0.8); Monocytes % (Auto) 1 % (0-12); Neutrophils # (Auto) 7.1 Thou/mm3 (1.8-7.7); Neutrophils % (Auto) 75 % (37-80); Nucleated Red Blood Cell % 0 /100 WBC (0); Platelet Count 184 Thou/mm3 (140-440); RDW Standard Deviation 51.4 fL (35.1-43.9); Red Blood Count 4.98 Miln/mm3 (4.50-5.90); White Blood Count 9.6 Thou/mm3 (3.8-10.6)
[2024-11-09 06:07] LABS: Anion Gap 10 (7-16); BUN/Creatinine Ratio 19 Ratio (12-20); Blood Urea Nitrogen 21 mg/dL (9-23); Calcium 8.2 mg/dL (8.3-10.6); Carbon Dioxide 25.9 mMol/L (20.0-31.0); Chloride 107 mMol/L (98-107); Creatinine (Component) 1.1 mg/dL (0.6-1.3); Glucose 187 mg/dL (74-106); Magnesium 2.2 mg/dL (1.6-2.6); Osmolality,Calculated 292 (275-295); Potassium 4.1 mMol/L (3.4-5.1); Sodium 143 mMol/L (136-145); eGFR > 60 See Note
[2024-11-09] MEDS: LEVALBUTEROL RT 1.25 MG/0.5 ML NEBU INH ×3 (06:25→22:11)
--- NOTE | 2024-11-09 08:22 | ESPR_ITS ---
<Statement entered by Ramesh Cloud MD - 11/10/24 00:54> Patient continues to be on high flow nasal cannula this morning at 60% FiO2 with flow rate of 15. Acapella ordered, cardiology Dr. Shafer consulted. I discussed with and supervised the general internal medicine doctor physician involved in the care of this patient. Patient assessment and plan was discussed with entire medicine team, including my attending. I agree with the assessment and plan as documented by general internal medicine doctor doctor. Patient care was discussed with my attending physician Dr. Fox Cloud, PGY-2 Documentation for date of: 11/09/24 Subjective Subjective Interval history: Mr. 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 is the informant as patient currently is on BiPAP and unable to give me too much information. He denies any fever or chills although complaining of significant weakness. In the emergency department patient was noted to be hypoxic and was placed on BiPAP.WBC 11.9, hemoglobin 12.8, platelets 181. ABG was not done. Sodium 146, potassium 4, BUN 25, creatinine 1.5, GFR 49, lactic acid 3.9, calcium 8.6, LFTs normal, troponin less than 0.02, albumin 4.2, Pro-Mikal 0.36. So far RSV, influenza, bedside COVID are negative. Chest x-ray showed bilateral pneumonia at the lung bases and pulmonary artery hypertension. Patient was diagnosed with COPD exacerbation, pneumonia and was started on Solu- Medrol, IV antibiotics and admitted to telemetry. Home medications: Amlodipine 10 Mg daily, tphnypqzpl-mczxmgtlxzxorb-nvxbwlcvxb 1 puff inhalation daily, vitamin D3 tab daily, vitamin B 12 1000 mcg daily, furosemide 20 Mg daily, Keppra, tamsulosin 0.4 Mg daily at night, simvastatin 20 Mg daily at night 11/02/2024: Patient seen and examined at bedside this morning. No acute overnight events. Patient sleeping but easily arousable. He complains of cough/sore throat and asking for cough syrup. He is also requesting for BiPAP to be taken off; will attempt to transition to HFNC if patient tolerates. Vitals, labs reviewed. Mildly tachycardic and tachypneic. Sats in high 90s, will set goal for 88 to 92%. WBC improved, hemoglobin stable with microcytic anemia noted. CHEM panel pending. Lactic acidosis resolved. Blood cultures pending at this time. Continue breathing treatments, oxygen, steroids for hypoxic respiratory failure; antibiotics for superimposed pneumonia. 11/03/2024: Patient seen and examined at bedside this morning. No acute overnight events. Patient continues to desat when taken off BiPAP, however has not eaten in several days. He is quite upset, asking for food. Will work with nursing and respiratory therapy to transition patient to HFNC with permissible hypoxia while he eats. Patient will be placed back on BiPAP 15 mins after finishing meal. Vitals significant for hypoxia & tachypnea from underlying COPD/PNA. CBC significant for microcytic anemia. Chem panel significant for hyperkalemia and iron panel consistent with QUITA. Kayexalate ordered. Consider starting iron supplementation on discharge. Blood cultures are negative at 24hr. Continue antibiotics. CT from September 2023 reviewed, with fibrosis and significant artifact from patient movement noted. 11/04/2024: Patient seen and examined at bedside this morning. No acute overnight events. He remained on high flow nasal cannula through the night with frequent monitoring and has been oxygenating fine. Vitals significant for tachycardia/tachypnea; saturating at 90% on 24 L at 60% FiO2. IDANIA index score 5.36 points, indicating low risk of intubation. Encouraged patient to continue with incentive spirometer. Labs reviewed. Leukocytosis noted, likely related to steroids. Patient continues to have a microcytic anemia. CHEM panel showing improvement in sodium and potassium, 145 and 3.8 respectively. Mild elevation in AST. Blood culture showing no growth after 48 hours. 11/05/2024: Patient seen at the bedside, currently comfortable, unable to wean off high flow, patient currently stays on 25 L/min high flow nasal cannula at, 60% FiO2, saturating well. Continue to use incentive spirometry. Urine output 1800 mL, -365 mL net negative over last 24 hours. Sodium 144, potassium 3.7, BUN 31, creatinine 1.2. Plan to discharge once patient is able to saturate well at 4-5 L oxygen. 11/06/2024 patient seen at the bedside, sitting at the side of bed ready to eat breakfast. Reported no active complaints. Patient is saturating 95% on high flow nasal cannula 25 L FiO2 60%. Patient continued to saturate well on decreasing oxygen to 15 L/min 60% FiO2, target SPO2 88% and above, can continue to wean down oxygen as tolerated. Patient can be discharged home once able to wean off oxygen to 4 to 5 L nasal cannula. 11/07/2024: Examined at bedside. No acute overnight events. Continued on high flow NC, 55% FiO2, satting well. Reports feeling better today. Denies fever, chills, headaches, chest pain, sob, cough, GI or urinary symptoms. Afebrile, tachycardic at 101, BP 141/88, RR 24. CBC stable without leukocytosis. Renal function improved, CR 1.1, GLUCOSE 174, remainder of CMP relatively unchanged. Edema and RLE >LLE (chronic, per patient), bilateral lower extremity Doppler was negative for DVT. 11/08/2024: No acute overnight events. Continues to require HFNC, satting 87-93%, we added BiPAP HS. Denies fever, chills, headaches, chest pain, worsening sob, cough, GI or urinary symptoms. EZEQUIEL 135/83, HR 97. CBC and CHEM panel without significant change. Will continue with ANTIBIOTICS and oxygen. Changed DUNEBs to ALEVALBUTEROL Q8HRR since he is tachycardic, minimal wheezing. Ordered Cocci IgM/IgG. 11/09/2024: No acute overnight events. Continued on HFNC, satting high 80s to low 90s. Denies new or worsening symptoms. Remains afebrile, BP 134/90, HR 85. CBC and CMP relatively stable, without acute changes. Echo showed EF 60%, severe concentric LVH, biatrial enlargement, mod-severe PHTN, mild-mod TCR, dilated IVC, trivial pericardial effusion. Cardiology, Dr. Shafer, on case, pending further recommendations. Exam Vital Signs Temp Pulse Resp BP Pulse Ox O2 Del Method O2 Flow Rate 97.8 F 88 21 H 139/91 H 91 L High Flow Nasal Cannula 15 11/09/24 08:00 11/09/24 08:00 11/09/24 08:00 11/09/24 08:00 11/09/24 08:00 11/09/24 08:00 11/09/24 08:00 FiO2 60 11/09/24 08:00 Narrative Exam Gen: AAOx3, elderly male, asymptomatic, sitting at the side of bed, on high flow nasal cannula HEENT: NCAT, PERRLA, EOMI, MMM, no LAD CVS: normal S1, S2. tachycardic, regular rhythm, some PVCs. No MRG Resp: Improvement in wheezing noted, improving coarse breath sounds bilaterally. Abd: soft, non-tender, non-distended. BS+ in all 4 quadrants MSK: Good ROM in BUE & BLE. trace LLE edema, 2+ RLE edema (chronic). Neuro: CN II-XII grossly intact. Strength 5/5 in BUE & BLE. Objective Labs 11/10/24 04:55 11/10/24 04:55 Labs: Laboratory Results - last 24 hr 11/08/24 11/09/24 10:03 05:04 WBC 9.6 RBC 4.98 Hgb 11.5 L Hct 37.3 L MCV 75 L MCH 23.1 L MCHC 30.8 L RDW Std Deviation 51.4 H Plt Count 184 Neut % (Auto) 75 Lymph % (Auto) 23 [place] % (Auto) 1 Eos % (Auto) 0 Baso % (Auto) 0 Neut # (Auto) 7.1 Lymph # (Auto) 2.2 [place] # (Auto) 0.1 Eos # (Auto) 0.0 Baso # (Auto) 0.0 Immature Gran # (Auto) 0.09 H Absolute Nucleated RBC 0.00 Immature Gran % 1 H Nucleated RBC % 0 Sodium 143 Potassium 4.1 D Chloride 107 Carbon Dioxide 25.9 Anion Gap 10 BUN 21 Creatinine 1.1 Estim Creat Clear Calc 77.0 eGFR > 60 BUN/Creatinine Ratio 19 Glucose 187 H Calculated Osmolality 292 Calcium 8.2 L Magnesium 2.2 Coccidioides IgM Ab Negative Quality Measures Quality Measures VTE prophylaxis Advance care planning discussed with:: patient Assessment & Plan Assessment Current Active Medications: Generic Name Dose Route Start Last Admin Trade Name Freq PRN Reason Stop Dose Admin Amlodipine Besylate 10 mg 11/02/24 09:00 11/08/24 08:16 Amlodipine Besylate 5 Mg Tablet PO 12/02/24 08:59 10 mg QDAY AMILCAR Administration Atorvastatin Calcium 10 mg 11/01/24 22:15 11/08/24 20:32 Atorvastatin Calcium 10 Mg Tablet PO 12/01/24 22:14 10 mg QPM AMILCAR Administration Protocol Multivitamine With 0 ea 11/02/24 09:45 11/08/24 08:15 [id number] [One PO 12/02/24 09:44 1 tablet Daily For Men] DAILY AMILCAR Administration Trelegy Ellipta 0 ea 11/02/24 10:00 11/08/24 07:18 200mcg/62.5mcg/25mcg INH 12/02/24 09:59 1 inha Inhaler DAILY AMILCAR Administration Cyanocobalamin 1,000 mcg 11/02/24 09:00 11/08/24 08:16 Cyanocobalamin 500 Mcg Tablet PO 12/02/24 08:59 1,000 mcg QDAY AMILCAR Administration Doxycycline Hyclate 100 mg 11/03/24 21:00 11/08/24 20:32 Doxycycline 100 Mg Tablet PO 11/10/24 20:59 100 mg BID AMILCAR Administration Protocol Furosemide 20 mg 11/02/24 09:45 11/08/24 08:16 Furosemide Inj 10 Mg/Ml Vial 2 Ml IVP 12/02/24 09:44 20 mg QDAY AMILCAR Administration Guaifenesin 100 mg 11/02/24 09:37 Guaifenesin Syrup 200 Mg/10 Ml Udc PO 12/02/24 09:36 QID PRN COUGH Protocol Heparin Sodium (Porcine) 5,000 unit 11/05/24 22:00 11/09/24 05:17 Heparin Sod Inj 5000 Unit/Ml Vial SC 11/19/24 21:59 5,000 unit Q8HR AMILCAR Administration Cefepime HCl 2 gm/ Sodium 50 mls @ 100 mls/hr 11/07/24 10:28 11/09/24 05:18 Chloride IV 11/14/24 10:27 100 mls/hr Q8HR AMILCAR Administration Levalbuterol HCl 1.25 mg 11/08/24 15:00 11/09/24 06:25 Levalbuterol Rt 1.25 Mg/0.5 Ml Nebu INH 12/08/24 14:59 1.25 mg Q8HRRT AMILCAR Administration Methylprednisolone Sodium Succinate 40 mg 11/08/24 21:00 11/08/24 20:33 Methylprednisolone Sod Succ 40 Mg Vial IVP 11/15/24 20:59 40 mg Q12HR AMILCAR Administration Pantoprazole Sodium 40 mg 11/04/24 09:00 11/08/24 08:16 Pantoprazole 40 Mg Tablet PO 12/04/24 08:59 40 mg QDAY AMILCAR Administration Protocol Sodium Chloride 3 ml 11/08/24 09:45 11/08/24 14:38 Sodium Chloride Rt Lindy 0.9% 3 Ml Nebu INH 12/08/24 09:44 3 ml PRN PRN Administration SOLN Tamsulosin HCl 0.4 mg 11/02/24 21:00 11/08/24 20:32 Tamsulosin Hcl 0.4 Mg Capsule PO 12/02/24 20:59 0.4 mg HS AMILCAR Administration Vitamin D 1,000 iu 11/02/24 09:00 11/08/24 08:16 Cholecalciferol (Vitamin D3) 1,000 Iu Tablet PO 12/02/24 08:59 1,000 iu DAILY AMILCAR Administration Plan Patient is a 74-year-old male with chronic hypoxic respiratory failure on 3 L home O2, COPD, ?IPF, former smoker, history of CVA with residual LLE weakness, HTN, HLD, remote history of seizures on Keppra, CKD stage IIIa, BPH and history of B-cell lymphocytosis who was admitted for acute hypoxic respiratory failure in the setting of COPD exacerbation. Patient presented with cough and SOB, desaturated to 70% while in ED. He was started on IV antibiotics, steroids, BiPAP. Appreciate recommendations from cardiology team. Acute on chronic hypoxic respiratory failure Acute COPD exacerbation Superimposed pneumonia IPF with severe PAH Leukocytosis (resolved) Patient typically uses 3 L home O2. Initially required BiPAP, however has been weaned down to high flow nasal cannula. Current settings 24 L at 60% FiO2. SaO2 goal 88-92%. We will allow for permissible hypoxia while patient eats. Patient can be placed on BiPAP overnight if he desaturates, and does not respond to increase FiO2/flow from high flow nasal cannula Leukocytosis likely reactive to steroids Increased Solu-Medrol to 60 mg every 12 hours Continued on ANTIBIOTICS, previously on ROCEPHIN. scheduled DuoNebs; Protonix for GI prophylaxis Incentive spirometer Blood cultures remain negative at 5 days. Cocci IgM negative. Chest CT (September 2023) concerning for COPD, pulmonary fibrosis, pulmonary artery hypertension and descending thoracic aorta aneurysm Echo showed EF 60%, severe concentric LVH, biatrial enlargement, mod-severe PHTN, mild-mod TCR, dilated IVC, trivial pericardial effusion. Still requiring HVNC, will add BiPAP HS. ? Continue CEFEPIME (11/07 to present) ? Continue DOXYCYCLINE (11/03 to present) ? Changed DUNEBs to LEVALBUTEROl Q8HRRT / tachycardia. ? Continue SOLUMEDEROL at 40 mg BID ? Pending Cardiology recommendations Sinus tachycardia Recurrent PVC Continued on high flow at 55% oxygen, satting well. Tachycardic with HR 120, felt irregular on exam, EKG showed recurrent PVC, A-fib ruled out. Asymptomatic without chest pain. Bilateral extremity edema On LASIX 20 mg IV daily, good urine output, but has 2+ bilateral extremity edema, slightly worse on the right. Lower extremity Doppler ruled out DVT. Last echo from 09/2023 showed EF 55 to 60%. ? Ordered repeat echo to evaluate ejection fraction and right heart strain given persistent edema and pulmonary fibrosis seen on CXR, respectively. ? Continue LASIX 20 mg daily, monitor renal function. Microcytic anemia H/o B-cell lymphocytosis Hgb 12.3, MCV 77 Possible QUITA vs Anemia secondary to kidney disease vs underlying malignancy Patient completed outpatient colonoscopy in 2020 Can consider starting iron supplementation on discharge CKD stage IIIa Hypernatremia, mild, improving Hyperkalemia, improved Creatinine 1.1, sodium 143, potassium 4.0 ? Renally dose meds, avoid overdiuresis and NEPHROTOXINS ? Daily CMP HTN BP has been stable Continue home amlodipine, IV Lasix, had 1.2 L urine output overnight. BP 141/80, HR 101 today 11/07 ? Will consider additional ANTIHYPERTENSIVE if BP remains high HLD History of CVA Continue statin Last lipid panel in August 2024 was relatively normal. History of seizures Keppra discontinued, as patient no longer takes it BPH Continue Flomax Dispo: Telemetry for acute hypoxic respiratory failure; continue IV antibiotics; continue noninvasive ventilation until patient can be safely weaned to home O2; continue incentive spirometry GI PPx: Protonix DVT PPx: Heparin Diet: Cardiac CODE STATUS: Full code Case was discussed with attending physician and senior resident. Joann De La Paz DO PGYI Attending Provider Attestation/Addendum I, Dian Braxton DO, attest that I was physically present for the [place] portions of the service and evaluated the patient with the resident and I reviewed and discussed the case with the resident and agree with the resident's findings and plans of care as documented above Patient seen and eval this a.m. He remains at high flow nasal cannula with flow of 15 L a minute and FiO2 of 60%. Patient did not get BiPAP overnight. Echocardiogram was done yesterday showing elevated pulmonary pressures of 65 mmHg. This was not seen on his previous echo a year ago. Will consult cardiology for further evaluation. Patient denies any active complaints. Will continue with current management otherwise.
[2024-11-09] MEDS: [UNRECOGNIZED DRUG - OTHER] PO (09:57)
[2024-11-09] MEDS: PANTOPRAZOLE 40 MG TABLET PO (09:58)
[2024-11-09] MEDS: DOXYCYCLINE 100 MG TABLET PO ×2 (09:58→20:50)
[2024-11-09] MEDS: amLODIPine BESYLATE 5 MG TABLET 10 MG PO (09:58)
[2024-11-09] MEDS: CHOLECALCIFEROL (Vitamin D3) 1,000 IU TABLET 1000 IU PO (09:58)
[2024-11-09] MEDS: CYANOCOBALAMIN 500 MCG 1000 MCG PO (09:58)
[2024-11-09] MEDS: FUROSEMIDE INJ 10 MG/ML VIAL 2 ML 20 MG IVP (10:01)
--- NOTE | 2024-11-09 15:19 | PC.SS ---
Rounding Note: Patient remains on high flow oxygen. Cardiology recommendations are pending.
[2024-11-09] MEDS: SODIUM CHLORIDE RT SOL 0.9% 3 ML NEBU INH ×2 (15:21→22:11)
[2024-11-09] MEDS: TAMSULOSIN HCL 0.4 MG CAPSULE PO (20:50)
[2024-11-09] MEDS: ATORVASTATIN CALCIUM 10 MG TABLET PO (20:51)
[2024-11-10] VITALS (13 sets, daily range): BP systolic 119–159; BP diastolic 73–90; PULSE 87–108; RESP 11–26; TEMP 36.2–36.5; O2SAT 88–96; BMI 31.8
--- NOTE | 2024-11-10 01:22 | ESCONSULT_ITS ---
RE: GUS MCCARTHY : 1950 DATE OF CONSULTATION: 11/09/2024 CONSULTING PHYSICIANS: Hospitalist, Dr Braxton REASON FOR CONSULTATION: Evaluation of shortness of breath, pulmonary hypertension, and COPD. HISTORY OF PRESENT ILLNESS: The patient is a 74-year-old male with a past medical history of multiple medical problems including history of previous stroke with mild residual left-sided weakness, COPD, chronic lung disease, and chronic smoking, on home oxygen, treated with hypertension and hypercholesterolemia, previous history of CKD stage III _ prostate hypertrophy. He came to the hospital because of severe shortness of breath. He is now only on 5 liter oxygen, now requiring 15 liter oxygen, severe shortness of breath, congestive heart failure symptoms with also some bilateral pneumonia. The patient has also echocardiogram that showed evidence of moderate severe pulmonary arterial hypertension. PA pressure is 65 mmHg with TR velocity 4 m/sec. The patient _has COPD and pneumonia and high-flow oxygen therapy with some improvement, but still having a lot of shortness of breath, hence cardiology consult is recommended. PAST MEDICAL HISTORY: Hypertension, chronic obstructive lung disease, history of CKD stage III, history of previous stroke. MEDICATIONS AT HOME: The patient is on 10 mg of amlodipine daily and multiple other medications includin. Furosemide 20 mg daily. 2. Keppra for seizure. 3. Tamsulosin 0.4 daily. 4. Simvastatin 20 mg daily. SOCIAL HISTORY: The patient was a smoker for several years. He does not drink alcoholic beverages. FAMILY HISTORY: Noncontributory. REVIEW OF SYSTEMS: Cardiovascular: No chest pain, but mostly shortness of breath. Pulmonary shortness of breath cough Rest of the 12 point review of system unremarkable PHYSICAL EXAMINATION: General: Well-nourished male alert, awake, in no acute distress. VITAL SIGNS: Blood pressure 129/81. Pulse rate is 90. Regular. Respirations 18. Temperature normal. HEENT: Head is atraumatic, normocephalic. Eyes: Normal. ENT: Normal. Neck: Supple. No JVD. Carotid pulse felt but no bruits. Chest: Symmetrical. Lungs: Decreased breath sounds at the bases. Bilateral coarse crackles. Heart: S1-S2 tachycardia no gallops or murmur. Abdomen: Thin and soft. Extremities: No edema. /Rectal: Not performed. Neurologic: Normal. DIAGNOSTIC DATA: Echocardiogram showed sinus rhythm, nonspecific changes. Chest x-ray showed possible bilateral pneumonia and congestive heart failure pattern. Cardiac echo show evidence of pulmonary hypertension. PA pressure above 65 mmHg._. Left ventricular function normal. Ejection fraction 60%, but left ventricular hypertrophy concentric LVH. IMPRESSION/ASSESSMENT: 1. Acute hypoxic respiratory failure secondary to combination of chronic obstructive lung disease and congestive heart failure as well as pulmonary hypertension. 2. Pulmonary arterial hypertension, possible group 3 secondary to chronic obstructive lung disease versus group 1 or mixed pulmonary hypertension with heart failure. 3. Congestive heart failure with preserved ejection fraction. 4. Hypertensive heart disease with chronic kidney disease stage III. RECOMMENDATIONS: Continue high flow oxygen therapy. If it does not improve significantly, may consider right heart catheterization doses if the patient has significant primary pulmonary hypertension versus heart failure related hypertension. My feeling the patient mostly has lung disease causing group 3 pulmonary hypertension for now, could also be mixed type. If the pulmonary hypertension is the main problem unless you address it, he may not improve, hence we will try to make the diagnosis group on pulmonary hypertension if necessary if he does not make significant progress over the next 2 days. DT: 22:49:39 TT: 00:16:00 Ref: [id number] - TID: [id number] MTDD
[2024-11-10] MEDS: CEFEPIME INJ 2 GM in SODIUM CHLORIDE 0.9% (Popper) 50 ML IV ×3 (05:18→21:50)
[2024-11-10 06:06] LABS: Basophils % (Auto) 0 % (0-2.5); Eosinophils % (Auto) 0 % (0-10); Hematocrit 36.1 % (41.0-53.0); Hemoglobin 11.7 g/dL (13.5-16.0); Immature Granulocytes % (Auto) 1 % (0-0); Immature Granulocytes Auto 0.08 Thou/mm3 (0.00-0.00); Lymphocytes # (Auto) 2.6 Thou/mm3 (1.0-4.8); Lymphocytes % (Auto) 25 % (10-50); Mean Corpuscular HGB Conc 32.4 g/dl (31.0-37.0); Mean Corpuscular Hemoglobin 23.5 pg (25.0-35.0); Mean Corpuscular Volume 73 fL (80-100); Monocytes # (Auto) 0.1 Thou/mm3 (0.0-0.8); Monocytes % (Auto) 1 % (0-12); Neutrophils # (Auto) 7.5 Thou/mm3 (1.8-7.7); Neutrophils % (Auto) 73 % (37-80); Nucleated Red Blood Cell % 0 /100 WBC (0); Platelet Count 183 Thou/mm3 (140-440); RDW Standard Deviation 49.7 fL (35.1-43.9); Red Blood Count 4.97 Miln/mm3 (4.50-5.90); White Blood Count 10.4 Thou/mm3 (3.8-10.6)
[2024-11-10 06:16] LABS: Anion Gap 11 (7-16); BUN/Creatinine Ratio 24 Ratio (12-20); Blood Urea Nitrogen 24 mg/dL (9-23); Calcium 8.1 mg/dL (8.3-10.6); Carbon Dioxide 26.2 mMol/L (20.0-31.0); Chloride 106 mMol/L (98-107); Estimated Creatinine Clearance 84.7 mL/min (>60); Glucose 202 mg/dL (74-106); Osmolality,Calculated 294 (275-295); Potassium 3.9 mMol/L (3.4-5.1); Sodium 143 mMol/L (136-145); eGFR > 60 See Note
[2024-11-10] MEDS: LEVALBUTEROL RT 1.25 MG/0.5 ML NEBU INH ×2 (06:41→14:43)
[2024-11-10] MEDS: SODIUM CHLORIDE RT SOL 0.9% 3 ML NEBU INH (06:41)
--- NOTE | 2024-11-10 08:37 | ESPR_ITS ---
Documentation for date of: 11/10/24 Subjective Subjective Interval history: Mr. 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 is the informant as patient currently is on BiPAP and unable to give me too much information. He denies any fever or chills although complaining of significant weakness. In the emergency department patient was noted to be hypoxic and was placed on BiPAP.WBC 11.9, hemoglobin 12.8, platelets 181. ABG was not done. Sodium 146, potassium 4, BUN 25, creatinine 1.5, GFR 49, lactic acid 3.9, calcium 8.6, LFTs normal, troponin less than 0.02, albumin 4.2, Pro-Mikal 0.36. So far RSV, influenza, bedside COVID are negative. Chest x-ray showed bilateral pneumonia at the lung bases and pulmonary artery hypertension. Patient was diagnosed with COPD exacerbation, pneumonia and was started on Solu- Medrol, IV antibiotics and admitted to telemetry. Home medications: Amlodipine 10 Mg daily, ijygtbitdo-etthayvwuzbhvk-bmnwbwsucg 1 puff inhalation daily, vitamin D3 tab daily, vitamin B 12 1000 mcg daily, furosemide 20 Mg daily, Keppra, tamsulosin 0.4 Mg daily at night, simvastatin 20 Mg daily at night 11/08/2024: No acute overnight events. Continues to require HFNC, satting 87-93%, we added BiPAP HS. Denies fever, chills, headaches, chest pain, worsening sob, cough, GI or urinary symptoms. EZEQUIEL 135/83, HR 97. CBC and CHEM panel without significant change. Will continue with ANTIBIOTICS and oxygen. Changed DUNEBs to ALEVALBUTEROL Q8HRR since he is tachycardic, minimal wheezing. Ordered Cocci IgM/IgG. 11/09/2024: No acute overnight events. Continued on HFNC, satting high 80s to low 90s. Denies new or worsening symptoms. Remains afebrile, BP 134/90, HR 85. CBC and CMP relatively stable, without acute changes. Echo showed EF 60%, severe concentric LVH, biatrial enlargement, mod-severe PHTN, mild-mod TCR, dilated IVC, trivial pericardial effusion. Cardiology, Dr. Shafer, on case, pending further recommendations. 11/10/2024: Patient seen and examined at bedside this morning. No acute overnight events. Patient endorses feeling restless and anxious; was offered anxiolytics but refused at this time. Vitals, labs reviewed. Patient remains on HFNC, weaned to 12L/55% FiO2 with SaO2 88-94%. Cardiology following for pulmonary HTN, possibly secondary to chronic lung disease; may consider right heart cath. Exam Vital Signs Temp Pulse Resp BP Pulse Ox O2 Del Method O2 Flow Rate 97.6 F 100 20 132/87 H 92 L High Flow Nasal Cannula 15 11/10/24 08:00 11/10/24 08:00 11/10/24 08:00 11/10/24 08:00 11/10/24 08:00 11/10/24 08:00 11/10/24 08:00 FiO2 55 11/10/24 08:00 Narrative Exam Gen: AAOx3, elderly male, asymptomatic, sitting at the side of bed, on high flow nasal cannula HEENT: NCAT, PERRLA, EOMI, MMM, no LAD CVS: normal S1, S2. tachycardic, regular rhythm, some PVCs. No MRG Resp: Improvement in wheezing noted, improving coarse breath sounds bilaterally. Abd: soft, non-tender, non-distended. BS+ in all 4 quadrants MSK: Good ROM in BUE & BLE. trace LLE edema, 2+ RLE edema (chronic). Neuro: CN II-XII grossly intact. Strength 5/5 in BUE & BLE. Objective Labs 11/10/24 04:55 11/10/24 04:55 Labs: Laboratory Results - last 24 hr 11/10/24 04:55 WBC 10.4 RBC 4.97 Hgb 11.7 L Hct 36.1 L MCV 73 L MCH 23.5 L MCHC 32.4 RDW Std Deviation 49.7 H Plt Count 183 Neut % (Auto) 73 Lymph % (Auto) 25 [place] % (Auto) 1 Eos % (Auto) 0 Baso % (Auto) 0 Neut # (Auto) 7.5 Lymph # (Auto) 2.6 [place] # (Auto) 0.1 Eos # (Auto) 0.0 Baso # (Auto) 0.0 Immature Gran # (Auto) 0.08 H Absolute Nucleated RBC 0.00 Immature Gran % 1 H Nucleated RBC % 0 Sodium 143 Potassium 3.9 Chloride 106 Carbon Dioxide 26.2 Anion Gap 11 BUN 24 H Creatinine 1.0 Estim Creat Clear Calc 84.7 eGFR > 60 BUN/Creatinine Ratio 24 H Glucose 202 H Calculated Osmolality 294 Calcium 8.1 L Magnesium 2.0 Quality Measures Quality Measures VTE prophylaxis Advance care planning discussed with:: patient and spouse Assessment & Plan Assessment Current Active Medications: Generic Name Dose Route Start Last Admin Trade Name Freq PRN Reason Stop Dose Admin Amlodipine Besylate 10 mg 11/02/24 09:00 11/09/24 09:58 Amlodipine Besylate 5 Mg Tablet PO 12/02/24 08:59 10 mg QDAY AMILCAR Administration Atorvastatin Calcium 10 mg 11/01/24 22:15 11/09/24 20:51 Atorvastatin Calcium 10 Mg Tablet PO 12/01/24 22:14 10 mg QPM AMILCAR Administration Protocol Multivitamine With 0 ea 11/02/24 09:45 11/09/24 09:57 [id number] [One PO 12/02/24 09:44 1 tablet Daily For Men] DAILY AMILCAR Administration Trelegy Ellipta 0 ea 11/02/24 10:00 11/08/24 07:18 200mcg/62.5mcg/25mcg INH 12/02/24 09:59 1 inha Inhaler DAILY AMILCAR Administration Cyanocobalamin 1,000 mcg 11/02/24 09:00 11/09/24 09:58 Cyanocobalamin 500 Mcg Tablet PO 12/02/24 08:59 1,000 mcg QDAY AMILCAR Administration Doxycycline Hyclate 100 mg 11/03/24 21:00 11/09/24 20:50 Doxycycline 100 Mg Tablet PO 11/10/24 20:59 100 mg BID AMILCAR Administration Protocol Furosemide 20 mg 11/02/24 09:45 11/09/24 10:01 Furosemide Inj 10 Mg/Ml Vial 2 Ml IVP 12/02/24 09:44 20 mg QDAY AMILCAR Administration Guaifenesin 100 mg 11/02/24 09:37 Guaifenesin Syrup 200 Mg/10 Ml Udc PO 12/02/24 09:36 QID PRN COUGH Protocol Heparin Sodium (Porcine) 5,000 unit 11/05/24 22:00 11/10/24 05:17 Heparin Sod Inj 5000 Unit/Ml Vial SC 11/19/24 21:59 Not Given Q8HR AMILCAR Cefepime HCl 2 gm/ Sodium 50 mls @ 100 mls/hr 11/07/24 10:28 11/10/24 05:18 Chloride IV 11/14/24 10:27 100 mls/hr Q8HR AMILCAR Administration Levalbuterol HCl 1.25 mg 11/08/24 15:00 11/10/24 06:41 Levalbuterol Rt 1.25 Mg/0.5 Ml Nebu INH 12/08/24 14:59 1.25 mg Q8HRRT AMILCAR Administration Methylprednisolone Sodium Succinate 40 mg 11/08/24 21:00 11/09/24 20:51 Methylprednisolone Sod Succ 40 Mg Vial IVP 11/15/24 20:59 40 mg Q12HR AMILCAR Administration Pantoprazole Sodium 40 mg 11/04/24 09:00 11/09/24 09:58 Pantoprazole 40 Mg Tablet PO 12/04/24 08:59 40 mg QDAY AMILCAR Administration Protocol Sodium Chloride 3 ml 11/08/24 09:45 11/10/24 06:41 Sodium Chloride Rt Lindy 0.9% 3 Ml Nebu INH 12/08/24 09:44 3 ml PRN PRN Administration SOLN Tamsulosin HCl 0.4 mg 11/02/24 21:00 11/09/24 20:50 Tamsulosin Hcl 0.4 Mg Capsule PO 12/02/24 20:59 0.4 mg HS AMILCAR Administration Vitamin D 1,000 iu 11/02/24 09:00 11/09/24 09:58 Cholecalciferol (Vitamin D3) 1,000 Iu Tablet PO 12/02/24 08:59 1,000 iu DAILY AMILCAR Administration Plan Patient is a 74-year-old male with chronic hypoxic respiratory failure on 3 L home O2, COPD, ?IPF, former smoker, history of CVA with residual LLE weakness, HTN, HLD, remote history of seizures on Keppra, CKD stage IIIa, BPH and history of B-cell lymphocytosis who was admitted for acute hypoxic respiratory failure in the setting of COPD exacerbation. Patient presented with cough and SOB, desaturated to 70% while in ED. He was started on IV antibiotics, steroids, HFNC. #Acute on chronic hypoxic respiratory failure #Acute COPD exacerbation #Superimposed pneumonia #IPF with severe PAH #Leukocytosis (resolved) Patient typically uses 3 L home O2. Initially required BiPAP, however has been weaned down to high flow nasal cannula. Current settings 24 L at 60% FiO2. SaO2 goal 88-92%. We will allow for permissible hypoxia while patient eats. Patient can be placed on BiPAP overnight if he desaturates, and does not respond to increase FiO2/flow from high flow nasal cannula Leukocytosis likely reactive to steroids; resolved Incentive spirometer; Acapella Blood cultures remain negative at 5 days. Cocci IgM negative; IgG pending Chest CT (September 2023) concerning for COPD, pulmonary fibrosis, pulmonary artery hypertension and descending thoracic aorta aneurysm Echo showed EF 60%, severe concentric LVH, biatrial enlargement, mod-severe PHTN, mild-mod TCR, dilated IVC, trivial pericardial effusion. Still requiring HVNC, will add BiPAP HS. ? Continue CEFEPIME (11/07 to present) ? Continue DOXYCYCLINE (11/03 to present) ? Changed DUONEBs to LEVALBUTEROl Q8HRRT / tachycardia. ? Continue SOLUMEDEROL at 40 mg BID ? Pending Cardiology recommendations --might need right heart cath - Will add NAC #Sinus tachycardia #Recurrent PVC Continue HFNC Patient endorses feeling anxious, possibly contributing to tachycardia #Bilateral extremity edema #?HFpEF On LASIX 20 mg IV daily, good urine output, but has 2+ bilateral extremity edema, slightly worse on the right. Lower extremity Doppler ruled out DVT. Last echo from 09/2023 showed EF 55 to 60%. Echo: EF 60%, severe concentric LVH, biatrial enlargement, mod-severe PHTN, mild-mod TCR, dilated IVC, trivial pericardial effusion ? Continue LASIX 20 mg daily, monitor renal function. #Microcytic anemia #H/o B-cell lymphocytosis Hgb 11.7, MCV 73 Possible QUITA vs Anemia secondary to kidney disease vs underlying malignancy Patient completed outpatient colonoscopy in 2020 Can consider starting iron supplementation on discharge #CKD stage IIIa #Hypernatremia, mild, improving #Hyperkalemia, improved Creatinine 1.0, sodium 143, potassium 3.9 ? Renally dose meds, avoid overdiuresis and NEPHROTOXINS ? Daily CMP #HTN BP has been stable Continue home amlodipine, IV Lasix, had 1.2 L urine output overnight. BP 141/80, HR 101 today 11/07 ? Will consider additional ANTIHYPERTENSIVE if BP remains high #HLD #History of CVA Continue statin Last lipid panel in August 2024 was relatively normal. #History of seizures Keppra discontinued, as patient no longer takes it #BPH Continue Flomax Dispo: Telemetry for acute hypoxic respiratory failure; continue IV antibiotics; continue noninvasive ventilation until patient can be safely weaned to home O2; continue incentive spirometry GI PPx: Protonix DVT PPx: Heparin Diet: Cardiac CODE STATUS: Full code Patient seen and care discussed with my attending Dr. Bautista. Pete Burks MD PGY-3 Attending Provider Attestation/Addendum Patient seen and examined with resident physician Dr. Burks. Note reviewed, agree with findings and recommendations. Patient currently seems to be getting frustrated staying in the hospital. Decreased to 12 L/min high flow oxygen. Dr. Concepcion on the case. Might need right heart catheterization. On breathing treatments, Solu-Medrol.
[2024-11-10] MEDS: amLODIPine BESYLATE 5 MG TABLET 10 MG PO (09:31)
[2024-11-10] MEDS: CHOLECALCIFEROL (Vitamin D3) 1,000 IU TABLET 1000 IU PO (09:31)
[2024-11-10] MEDS: PANTOPRAZOLE 40 MG TABLET PO (09:31)
[2024-11-10] MEDS: CYANOCOBALAMIN 500 MCG 1000 MCG PO (09:31)
[2024-11-10] MEDS: FUROSEMIDE INJ 10 MG/ML VIAL 2 ML 20 MG IVP (09:32)
[2024-11-10] MEDS: DOXYCYCLINE 100 MG TABLET PO (09:32)
[2024-11-10] MEDS: [UNRECOGNIZED DRUG - OTHER] PO (09:33)
[2024-11-10 11:00] LABS: Cocci Serology, IgG Negative (Negative)
[2024-11-10] MEDS: HEPARIN SOD INJ 5000 UNIT/ML VIAL SC ×2 (14:30→21:51)
[2024-11-10] MEDS: ACETYLCYSTEINE RT SOL 10% 4 ML NEBU 3 ML INH (14:43)
--- NOTE | 2024-11-10 17:25 | PC.NURSE ---
Called RT to verify Trilegy administration, RT to follow up
--- NOTE | 2024-11-10 20:00 | PC.NURSE ---
PATIENT IS REFUSING BED ALARM
[2024-11-10] MEDS: SERTRALINE HCL 25 MG TABLET 50 MG PO (21:49)
[2024-11-10] MEDS: TAMSULOSIN HCL 0.4 MG CAPSULE PO (21:49)
[2024-11-10] MEDS: ATORVASTATIN CALCIUM 10 MG TABLET PO (21:49)
[2024-11-11] VITALS (8 sets, daily range): BP systolic 99–137; BP diastolic 70–79; PULSE 69–105; RESP 13–23; TEMP 36.1–36.7; O2SAT 86–97; BMI 31.1
[2024-11-11] MEDS: LEVALBUTEROL RT 1.25 MG/0.5 ML NEBU INH ×2 (00:56→06:37)
[2024-11-11] MEDS: ACETYLCYSTEINE RT SOL 10% 4 ML NEBU 3 ML INH ×2 (00:56→06:37)
[2024-11-11] MEDS: SODIUM CHLORIDE RT SOL 0.9% 3 ML NEBU INH (00:56)
--- NOTE | 2024-11-11 02:42 | ESPR_ITS ---
RE: ART CALLE : 1950 DATE OF SERVICE: 11/10/2024 SUBJECTIVE: Art Calle is a 74-year-old male, who was admitted to the hospital with shortness of breath, acute hypoxic respiratory failure, and multiple medical problems. He has a history of chronic obstructive lung disease as well. Echo showed moderate to severe pulmonary hypertension, possibly due to combination of multiple factors. Oxygen requirements have come down, now 4 L nasal cannula, become quite comfortable today. He is happier than yesterday. He does not complain of any chest pain, but still has some shortness of breath. PHYSICAL EXAMINATION: Vital Signs: Shows blood pressure 120/70, pulse rate is 100, respiratory rate is 20, temperature 97, and oxygen saturation 91% on 6 L per minute nasal cannula. HEENT: Head is atraumatic. Neck: Supple. No significant JVD. Chest: Symmetrical. Lungs: Decreased breath sounds. No rales. Heart: S1 and S2 regular, distant. Abdomen: Soft . Extremities: No edema. Genitourinary and Rectal: Not performed. LABORATORY DATA: Showed hematology with white count of 10.4 and hemoglobin stable. Creatinine 1.0, BUN 24, and potassium 3.9. IMPRESSION: 1. Acute hypoxic respiratory failure secondary to chronic obstructive lung disease. 2. Moderate to severe pulmonary hypertension, possibly group 3 pulmonary hypertension due to lung disease. RECOMMENDATIONS: Since the patient is improving clinically, I do not see a need for cardiac catheterization, but if significantly worsened, question of diuretic use, we will do right heart cardiac catheterization to assess the patient's heart failure versus lung disease versus group 1 pulmonary hypertension. DT: 23:34:10 TT: 00:55:00 Ref: [id number] - TID: [id number]
[2024-11-11] MEDS: CEFEPIME INJ 2 GM in SODIUM CHLORIDE 0.9% (Popper) 50 ML IV (05:30)
[2024-11-11] MEDS: HEPARIN SOD INJ 5000 UNIT/ML VIAL SC (05:30)
[2024-11-11 06:01] LABS: Basophils % (Auto) 0 % (0-2.5); Eosinophils % (Auto) 0 % (0-10); Hematocrit 36.6 % (41.0-53.0); Hemoglobin 11.8 g/dL (13.5-16.0); Immature Granulocytes % (Auto) 1 % (0-0); Lymphocytes # (Auto) 3.3 Thou/mm3 (1.0-4.8); Lymphocytes % (Auto) 26 % (10-50); Mean Corpuscular HGB Conc 32.2 g/dl (31.0-37.0); Mean Corpuscular Hemoglobin 23.7 pg (25.0-35.0); Mean Corpuscular Volume 74 fL (80-100); Monocytes # (Auto) 0.2 Thou/mm3 (0.0-0.8); Monocytes % (Auto) 1 % (0-12); Neutrophils % (Auto) 72 % (37-80); Nucleated Red Blood Cell % 0 /100 WBC (0); Platelet Count 167 Thou/mm3 (140-440); Red Blood Count 4.97 Miln/mm3 (4.50-5.90); White Blood Count 12.6 Thou/mm3 (3.8-10.6)
[2024-11-11 06:30] LABS: Albumin, Serum 3.2 gm/dL (3.4-4.8); Anion Gap 10 (7-16); BUN/Creatinine Ratio 27 Ratio (12-20); Blood Urea Nitrogen 27 mg/dL (9-23); Calcium 8.2 mg/dL (8.3-10.6); Calcium (Corrected) 8.8 mg/dL (8.5-10.1); Carbon Dioxide 28.3 mMol/L (20.0-31.0); Chloride 107 mMol/L (98-107); Estimated Creatinine Clearance 83.4 mL/min (>60); Glucose 146 mg/dL (74-106); Osmolality,Calculated 296 (275-295); Phosphorous 3.4 mg/dL (2.4-5.1); Potassium 4.6 mMol/L (3.4-5.1); Sodium 145 mMol/L (136-145); eGFR > 60 See Note
--- NOTE | 2024-11-11 07:15 | PC.NURSE ---
Received handoff report from the shift boss nurse, and during report, pt again refused having the bed alarm on. Plan of care on-going.
[2024-11-11] MEDS: amLODIPine BESYLATE 5 MG TABLET 10 MG PO (08:47)
[2024-11-11] MEDS: PANTOPRAZOLE 40 MG TABLET PO (08:47)
--- NOTE | 2024-11-11 08:48 | ESDS_ITS ---
Planned Discharge Date 11/11/24 DS: Providers Provider Date of admission: 11/01/24 17:21 Primary care physician: Jamaal Bautista MD Admitting Provider: Jamaal Bautista MD Attending Provider on Admission: Dian Braxton DO Consults: 11/08/24 09:44 Referral Physical Therapy Routine Comment: Physician Instructions: 11/09/24 09:06 Consult to Cardiology Routine Comment: Consulting Provider: Trish Shafer Attending Provider on DC: Jamaal Bautista MD Discharging Provider: Jamaal Bautista MD DS: Diagnosis Problem List Completed Was Problem List Reviewed/Reconciled?: Yes Hospital Course Hospital Course Hospital course: Mr. Calle is a 74-year-old male with significant past medical history of stroke 15 years back-with mild residual left lower limb weakness, COPD on 3 L home oxygen, hypertension, hyperlipidemia, remote history of seizure, CKD stage III A and BPH who was admitted to [facility] on 11/01/2024 for Acute on Chronic hypoxic respiratory failure 2/2 COPD exacerbation. Upon presentation, pt was noted to be hypoxic and was placed on BiPAP. WBC 11.9, hemoglobin 12.8, platelets 181. ABG was not done. Sodium 146, potassium 4, BUN 25, creatinine 1.5, GFR 49, lactic acid 3.9, calcium 8.6, LFTs normal, troponin less than 0.02, albumin 4.2, Pro-Mikal 0.36. So far RSV, influenza, bedside COVID are negative. Chest x-ray showed bilateral pneumonia at the lung bases and pulmonary artery hypertension. Patient was diagnosed with COPD exacerbation, pneumonia and was started on Solu-Medrol, IV antibiotics and admitted to telemetry. While on the floors, pt was treated with steroids, and abx. Pt was attempted to be weaned off high flow, however, pt continued to require 15L on high flow. Previous chest CT in September 2023 showed bilateral pulmonary fibrosis. Cardiology was consulted for concern for pulmonary hypertension. There was discussion about patient possibly to receive right heart catheterization, however since patient continued to improve and was weaned down on oxygen back to 3 L nasal cannula, this was deferred. It was recommended for patient to consider right heart catheterization in the future if patient continues to worsen. We will continue to hold patient's diuretics and will resume upon discretion of primary care provider. Patient was also started on Zoloft and patient has patient was experiencing some anxiety with worsening of his condition. Patient was then discharged the following instructions. Discharge Instructions: Take your meds as prescribed Follow up with your PCP within one week Follow up with your Cashier Associate, Dr. Bautista within one week Take your Prednisone 10 mg for one week Take your Zoloft 50 mg, your new SSRI, as prescribed Continue to use oxygen at home, goal saturation of 88-92% Return to ER if your symptoms worsen or return Problem List: #Acute on chronic hypoxic respiratory failure #Acute COPD exacerbation #Superimposed pneumonia #IPF with severe PAH #Leukocytosis #Sinus tachycardia #Recurrent PVC #Bilateral extremity edema #?HFpEF #Microcytic anemia #H/o B-cell lymphocytosis #CKD stage IIIa #Hypernatremia, mild, improving #Hyperkalemia, improved #HTN #HLD #History of CVA #History of seizures #BPH Discharge summary was reviewed with my attending Dr. Lily Eli, PGY-1 Status at Discharge Cognitive/behavioral status at discharge: stable Functional status at discharge: wheelchair bound Overall status at discharge: patient is not back to baseline Time Spent with Patient Time attestation: Total time spent providing and/or coordinating discharge services: Time spent: Greater than 30 minutes Exam Vital Signs Temp Pulse Resp BP Pulse Ox O2 Del Method O2 Flow Rate 97.6 F 90 23 H 137/79 H 94 L Nasal Cannula 3 11/11/24 04:00 11/11/24 06:41 11/11/24 06:41 11/11/24 04:00 11/11/24 06:41 11/11/24 04:00 11/11/24 06:41 FiO2 55 11/10/24 20:07 Narrative Exam Gen: AAOx3, elderly male, asymptomatic, sitting at the side of bed, on high flow nasal cannula HEENT: NCAT, PERRLA, EOMI, MMM, no LAD CVS: normal S1, S2. tachycardic, regular rhythm, some PVCs. No MRG Resp: Improvement in wheezing noted, improving coarse breath sounds bilaterally, on 3L NC Abd: soft, non-tender, non-distended. BS+ in all 4 quadrants MSK: Good ROM in BUE & BLE. trace LLE edema, 2+ RLE edema (chronic). Neuro: CN II-XII grossly intact. Strength 5/5 in BUE & BLE. Discharge Plan Plan Patient Disposition: HOME (Self Care) Patient condition on transfer: Stable Care Plan Goals: Discharge Instructions: Take your meds as prescribed Follow up with your PCP within one week Follow up with your Cashier Associate, Dr. Bautista within one week Take your Prednisone 10 mg for one week Take your Zoloft 50 mg, your new SSRI, as prescribed I am holding your Lasix, water pill, resume with your PCP Continue to use oxygen at home, goal saturation of 88-92% Return to ER if your symptoms worsen or return Prescriptions/Referrals Prescriptions/Med Rec: New prednisone 10 mg tablet 10 mg PO QDAY 7 Days Qty: 7 0RF Rx Instructions: Take one tablet by mouth every day for seven days sertraline [Zoloft] 50 mg tablet 50 mg PO QDAY 30 Days Qty: 30 0RF Rx Instructions: Take one tablet by mouth at night Continued tamsulosin 0.4 mg capsule 0.4 mg PO HS cyanocobalamin (vitamin B-12) [Vitamin B-12] 1,000 mcg Tablet 1,000 mcg PO QDAY amlodipine 10 mg Tablet 10 mg PO QDAY simvastatin 20 mg Tablet 20 mg PO QPM cholecalciferol (vitamin D3) [Vitamin D3] 1,000 unit Tablet 1,000 unit PO DAILY One Daily For Men 0.4-600 mg-mcg Tablet 1 tab PO DAILY calcium carb, citrate-vit D3 [Citracal-D3 Slow Release] 600 mg-12.5 mcg (500 unit) Tablet Extended Release 1 tab PO DAILY roflumilast 500 mcg tablet 500 mcg PO DAILY Patient Comments: TAKE 1 TABLET BY MOUTH ONCE DAILY Trelegy Ellipta 200-62.5-25 mcg blister with device 1 inh inhalation QDAY Held furosemide 20 mg Tablet 20 mg PO QDAY Hold Instructions: resume with your PCP Discontinued levetiracetam [Keppra] 500 mg tablet 500 mg PO BID 30 Days Qty: 60 1RF Referrals: Jamaal Bautista MD [Primary Care Provider] - Patient/Caregiver Discharge Instructions Discharge Activity: activity as tolerated Education Materials: Chronic Lung Disease Stress, COPD Meds, Chronic Lung Disease Stretching, Chronic Lung Disease Strength Print Language: Tamazight Stand Alone Forms: [employer]i Award Info., Patient Portal Info Letter Discharge Order Discharge Orders: Discharge (Routine); Ordered 11/11/24 Ordered By: Rod Eli Quality Discharge Quality Measures VTE prophylaxis (Heparin) MD Attestestation MD Attestation Patient seen and examined with resident physician Dr. Velasco. Note reviewed, agree with findings and recommendations. Patient currently seen in telemetry. On 3 L oxygen nasal cannula. Going to be discharged [id number]-[id number]-ca with me in 1 week. Patient very emotional. Added sertraline
[2024-11-11] MEDS: FUROSEMIDE INJ 10 MG/ML VIAL 2 ML 20 MG IVP (08:49)
[2024-11-11] MEDS: [UNRECOGNIZED DRUG - OTHER] PO (08:49)
[2024-11-11] MEDS: CHOLECALCIFEROL (Vitamin D3) 1,000 IU TABLET 1000 IU PO (08:49)
[2024-11-11] MEDS: CYANOCOBALAMIN 500 MCG 1000 MCG PO (08:49)
== END 2024-11-11 11:08 | disposition home or self-care (01) | DRG 190 ==
LOC: SERX 17:18 → SERHOLD 17:41 → S2NX 11-02 00:29
PROVIDERS: Student in an Organized Health Care Education/Training Program; Admitting Provider Internal Medicine; Emergency Provider Emergency Medicine; PCP Internal Medicine; Visit Provider Internal Medicine
DX: J44.1 Chronic obstructive pulmonary disease with (acute) exacerbation (principal); J18.9 Pneumonia, unspecified organism; J96.21 Acute and chronic respiratory failure with hypoxia; E87.0 Hyperosmolality and hypernatremia; E87.1 Hypo-osmolality and hyponatremia; E87.20 Acidosis, unspecified; I13.0 Hypertensive heart and chronic kidney disease with heart failure and stage 1 through stage 4 chronic kidney disease, or unspecified chronic kidney disease; I50.30 Unspecified diastolic (congestive) heart failure; I69.354 Hemiplegia and hemiparesis following cerebral infarction affecting left non-dominant side; J44.0 Chronic obstructive pulmonary disease with (acute) lower respiratory infection; E78.5 Hyperlipidemia, unspecified; Z99.81 Dependence on supplemental oxygen; N40.0 Benign prostatic hyperplasia without lower urinary tract symptoms; I12.9 Hypertensive chronic kidney disease with stage 1 through stage 4 chronic kidney disease, or unspecified chronic kidney disease; N18.31 Chronic kidney disease, stage 3a; Z87.891 Personal history of nicotine dependence; I27.23 Pulmonary hypertension due to lung diseases and hypoxia; I27.21 Secondary pulmonary arterial hypertension; D50.9 Iron deficiency anemia, unspecified; E78.00 Pure hypercholesterolemia, unspecified; G40.909 Epilepsy, unspecified, not intractable, without status epilepticus; E87.5 Hyperkalemia; F41.9 Anxiety disorder, unspecified; Z79.899 Other long term (current) drug therapy; I49.3 Ventricular premature depolarization; Z99.3 Dependence on wheelchair
CPT/HCPCS: 36415; 71045; 80048; 80053; 80069; 82728; 83540; 83550; 83605; 83735; 84145; 84484; 85025; 86331; 86635; 87040; 87400; 87634; 87811; 93005; 93306; 93970; 94640; 94644; 94660; 94667; 96361; 96365; 97162; 99291; A9270; J0692; J0696; J1644; J1938; J1953; J2470; J2919; J3490; J7030; J7050; J7512

== ENCOUNTER → 2024-12-13 | Outpatient (CLI) | payer OTHER, SELFPAY ==
[2024-12-13 09:43] LABS: Collection Type, Urine Clean Catch
[2024-12-13 09:59] LABS: Basophils # (Auto) 0.1 Thou/mm3 (0.0-0.2); Basophils % (Auto) 1 % (0-2.5); Eosinophils # (Auto) 0.1 Thou/mm3 (0.0-0.5); Eosinophils % (Auto) 2 % (0-10); Hematocrit 39.7 % (41.0-53.0); Hemoglobin 12.5 g/dL (13.5-16.0); Immature Granulocytes Auto 0.02 Thou/mm3 (0.00-0.00); Lymphocytes # (Auto) 2.3 Thou/mm3 (1.0-4.8); Lymphocytes % (Auto) 25 % (10-50); Mean Corpuscular HGB Conc 31.5 g/dl (31.0-37.0); Mean Corpuscular Hemoglobin 24.6 pg (25.0-35.0); Mean Corpuscular Volume 78 fL (80-100); Monocytes # (Auto) 0.5 Thou/mm3 (0.0-0.8); Monocytes % (Auto) 5 % (0-12); Neutrophils # (Auto) 6.0 Thou/mm3 (1.8-7.7); Neutrophils % (Auto) 67 % (37-80); Nucleated Red Blood Cell # 0.00 Thou/mm3 (0.00-0.00); Nucleated Red Blood Cell % 0 /100 WBC (0); Platelet Count 335 Thou/mm3 (140-440); RDW Standard Deviation 62.4 fL (35.1-43.9); Red Blood Count 5.09 Miln/mm3 (4.50-5.90); White Blood Count 9.1 Thou/mm3 (3.8-10.6)
[2024-12-13 10:19] LABS: Alanine Aminotransferase 13 U/L (10-49); Albumin, Serum 4.0 gm/dL (3.4-4.8); Albumin/Globulin Ratio 1.7 (1.2-2.2); Alkaline Phosphatase 100 U/L (46-116); Anion Gap 10 (7-16); Aspartate Amino Transferase 21 U/L (0-34); BUN/Creatinine Ratio 8 Ratio (12-20); Bilirubin,Total 0.7 mg/dL (0.3-1.2); Blood Urea Nitrogen 12 mg/dL (9-23); Calcium 8.9 mg/dL (8.3-10.6); Calcium (Corrected) 8.9 mg/dL (8.5-10.1); Carbon Dioxide 26.6 mMol/L (20.0-31.0); Chloride 109 mMol/L (98-107); Creatinine (Component) 1.5 mg/dL (0.6-1.3); Globulin 2.4 gm/dL (2.3-3.5); Glucose 111 mg/dL (74-106); Osmolality,Calculated 291 (275-295); Potassium 4.4 mMol/L (3.4-5.1); Sodium 146 mMol/L (136-145); Total Protein 6.4 gm/dL (5.7-8.2); eGFR 49 See Note
[2024-12-13 10:49] LABS: Bilirubin,Urine Negative (Negative); Blood,Urine 3+ (Negative); Clarity,Urine Turbid (Clear/Hazy); Color,Urine Yellow (Lt Yel-Yel); Glucose, Urine Negative (Negative); Ketones,Urine Negative (Negative); Leukocyte Esterase,Urine Positive (Negative); Nitrite,Urine Negative (Negative); PH,Urine 6.0 (5.0-7.0); Protein,Urine 1+ (Neg - Trace); RBC,Urine 1768 /hpf (0-3); Specific Gravity,Urine 1.021 (1.001-1.035); Squamous Epithelial Cell,Urine 1 /hpf (0-5); Transitional Epi Cells,Urine 6 /hpf (0-5); Urobilinogen,Urine Negative mg/dL (0.0-1.0); WBC,Urine 44 /hpf (0-5)
[2024-12-13 11:00] LABS: Sperm,Urine Present
== END | disposition home or self-care (01) ==
PROVIDERS: PCP Internal Medicine; Referring Provider Internal Medicine; Visit Provider Internal Medicine
DX: I12.9 Hypertensive chronic kidney disease with stage 1 through stage 4 chronic kidney disease, or unspecified chronic kidney disease (principal); N18.30 Chronic kidney disease, stage 3 unspecified; E78.5 Hyperlipidemia, unspecified
CPT/HCPCS: 36415; 80053; 81001; 85025

== ENCOUNTER → 2025-01-07 | Outpatient (CLI) | payer OTHER, SELFPAY ==
--- NOTE | 2025-01-07 15:00 | XR_ITS ---
Examination: CT abdomen and pelvis without contrast. Coronal 3-D reconstructions. Sagittal 2-D reconstructions. Date and time of exam:January 07, 2025 1503 hours Comparison September 28, 2017 INDICATIONS: Hematuria episodes beginning 2 months ago CTDI: vol (mGy): 10.7 DLP: (mGycm): 638 Technique: Axial images of the abdomen have been obtained, 3 mm slice thickness Intravenous contrast material has not been administered. Low dose protocols were performed. One or more of the following dose reduction techniques were used; automated exposure control, adjustment of the mA and/or KV according to patient size, use of iterative reconstruction technique. Findings: Liver is irregular in contour, no focal liver lesions Gallstones Spleen not enlarged No pancreatic mass No renal or ureteral calculi, no hydronephrosis Abdominal aortic calcification No bowel obstruction No pericecal inflammatory change Marked thickening of the urinary bladder up to 14 mm with pericystic inflammatory change Transverse prostate dimension 5.9 cm Prominent osteopenia IMPRESSION: Marked thickening of urinary bladder up to 15 mm with pericystic inflammatory change, most consistent with significant cystitis
== END | disposition home or self-care (01) ==
LOC: CCTX 14:43
PROVIDERS: PCP Internal Medicine; Referring Provider Surgery; Visit Provider Surgery
DX: N32.89 Other specified disorders of bladder (principal)
CPT/HCPCS: 74176

== ENCOUNTER → 2025-04-07 | Outpatient (CLI) | payer OTHER, SELFPAY ==
[2025-04-07 08:49] LABS: Collection Type, Urine Clean Catch; Squamous Epithelial Cell,Urine 0 /hpf (0-5)
[2025-04-07 09:12] LABS: Basophils # (Auto) 0.1 Thou/mm3 (0.0-0.2); Basophils % (Auto) 1 % (0-2.5); Eosinophils # (Auto) 0.4 Thou/mm3 (0.0-0.5); Eosinophils % (Auto) 4 % (0-10); Hematocrit 35.0 % (41.0-53.0); Hemoglobin 10.5 g/dL (13.5-16.0); Immature Granulocytes Auto 0.03 Thou/mm3 (0.00-0.00); Lymphocytes # (Auto) 2.5 Thou/mm3 (1.0-4.8); Lymphocytes % (Auto) 24 % (10-50); Mean Corpuscular HGB Conc 30.0 g/dl (31.0-37.0); Mean Corpuscular Hemoglobin 21.1 pg (25.0-35.0); Mean Corpuscular Volume 70 fL (80-100); Monocytes # (Auto) 0.4 Thou/mm3 (0.0-0.8); Monocytes % (Auto) 4 % (0-12); Neutrophils # (Auto) 6.8 Thou/mm3 (1.8-7.7); Neutrophils % (Auto) 66 % (37-80); Nucleated Red Blood Cell # 0.00 Thou/mm3 (0.00-0.00); Nucleated Red Blood Cell % 0 /100 WBC (0); Platelet Count 191 Thou/mm3 (140-440); RDW Standard Deviation 47.3 fL (35.1-43.9); Red Blood Count 4.97 Miln/mm3 (4.50-5.90); White Blood Count 10.2 Thou/mm3 (3.8-10.6)
[2025-04-07 09:14] LABS: Bilirubin,Urine Negative (Negative); Blood,Urine 3+ (Negative); Color,Urine Yellow (Lt Yel-Yel); Glucose, Urine Negative (Negative); Ketones,Urine Negative (Negative); Leukocyte Esterase,Urine Positive (Negative); Nitrite,Urine Negative (Negative); PH,Urine 6.5 (5.0-7.0); Protein,Urine 1+ (Neg - Trace); RBC,Urine 1239 /hpf (0-3); Specific Gravity,Urine 1.015 (1.001-1.035); Urobilinogen,Urine Negative mg/dL (0.0-1.0); WBC,Urine 379 /hpf (0-5)
[2025-04-07 09:21] LABS: Clarity,Urine Hazy (Clear/Hazy)
[2025-04-07 09:28] LABS: Alanine Aminotransferase 10 U/L (10-49); Albumin, Serum 4.2 gm/dL (3.4-4.8); Albumin/Globulin Ratio 2.3 (1.2-2.2); Alkaline Phosphatase 88 U/L (46-116); Anion Gap 10 (7-16); Aspartate Amino Transferase 23 U/L (0-34); BUN/Creatinine Ratio 6 Ratio (12-20); Bilirubin,Total 0.5 mg/dL (0.3-1.2); Blood Urea Nitrogen 9 mg/dL (9-23); Calcium 9.0 mg/dL (8.3-10.6); Calcium (Corrected) 9.0 mg/dL (8.5-10.1); Carbon Dioxide 26.2 mMol/L (20.0-31.0); Cardiac Risk Estimate 2.5 RATIO (4.0-6.7); Chloride 110 mMol/L (98-107); Cholesterol 96 mg/dL (132-200); Creatinine (Component) 1.4 mg/dL (0.6-1.3); Globulin 1.8 gm/dL (2.3-3.5); Glucose 101 mg/dL (74-106); HDL Cholesterol 39 mg/dL (40-60); LDL Cholesterol,Calculated 42 mg/dL (0-130); Osmolality,Calculated 289 (275-295); Potassium 4.1 mMol/L (3.4-5.1); Sodium 146 mMol/L (136-145); Total Protein 6.0 gm/dL (5.7-8.2); Triglycerides 75 mg/dL (30-150); eGFR 53 See Note
[2025-04-07 09:31] LABS: Creatinine MALB Rnd Ur 89 mg/dL (30-125); Microalbumin Creat Ratio 382 mg/gCrea (<30); Microalbumin, Random Urine 340 mg/L (0-300)
== END | disposition home or self-care (01) ==
LOC: COPL 08:05
PROVIDERS: PCP Internal Medicine; Referring Provider Internal Medicine; Visit Provider Internal Medicine
DX: I12.9 Hypertensive chronic kidney disease with stage 1 through stage 4 chronic kidney disease, or unspecified chronic kidney disease (principal); N18.30 Chronic kidney disease, stage 3 unspecified; E78.5 Hyperlipidemia, unspecified
CPT/HCPCS: 36415; 80053; 80061; 81001; 82043; 82570; 85025